=== PATIENT | male | born 1940 | race Caucasian/White ===

== ENCOUNTER 2017-08-04 16:41 | Emergency (ER) | payer MEDICARE ==
--- NOTE | 2017-08-04 17:30 | ERPHSYRPT ---
- History of Present Illness Time Seen by Provider: 08/04/17 17:25 Source: patient Exam Limitations: no limitations Physician History: The patient is a 77-year-old male with a friend of the family complains that he has intermittent pain with urination for 4 months. It is not hurting any more today than it has in the past. He is a very poor historian. He has no local doctor. He takes no prescription medicines. At times he feels like he has urinary urgency. He denies fever or chills. Timing/Duration: other (4 months) Quality: burning Onset Location: urethral Pain Radiation: none Severity of Pain-Max: mild Severity of Pain-Current: none Modifying Factors: Improves With: nothing Associated Symptoms: dysuria Prior abdominal problems: none Allergies/Adverse Reactions: aspirin Allergy (Verified 08/04/17 17:04) - Review of Systems Constitutional: No Fever, No Chills Eyes: No Symptoms Ears, Nose, & Throat: No Symptoms Respiratory: No Cough, No Dyspnea Cardiac: No Chest Pain, No Edema, No Syncope Abdominal/Gastrointestinal: No Abdominal Pain, No Nausea, No Vomiting, No Diarrhea Genitourinary Symptoms: Dysuria, Urgency Musculoskeletal: No Back Pain, No Neck Pain Skin: No Rash Neurological: No Dizziness, No Focal Weakness, No Sensory Changes Psychological: No Symptoms Endocrine: No Symptoms Hematologic/Lymphatic: No Symptoms Immunological/Allergic: No Symptoms All Other Systems: Reviewed and Negative - Nursing Vital Signs Nursing Vital Signs: Initial Vital Signs Temperature 97.7 F 08/04/17 17:06 Pulse Rate 72 08/04/17 17:06 Respiratory Rate 16 08/04/17 17:06 Blood Pressure 152/83 08/04/17 17:06 O2 Sat by Pulse Oximetry 97 08/04/17 17:06 Pain Scale Pain Intensity 5 - Physical Exam General Appearance: no apparent distress, alert Eye Exam: PERRL/EOMI Ears, Nose, Throat Exam: pharynx normal, moist mucous membranes Neck Exam: normal inspection, supple Respiratory Exam: normal breath sounds, lungs clear Cardiovascular Exam: regular rate/rhythm, No edema Gastrointestinal/Abdomen Exam: soft, No tenderness Rectal Exam: not done Male Genital Exam: normal genitalia (uncircumsized) Back Exam: normal inspection, No CVA tenderness Extremity Exam: normal inspection, normal range of motion, No pedal edema Neurologic Exam: alert, 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, cooperative, sensation nml, No motor deficits Skin Exam: normal color, warm, dry, No rash SpO2 Interpretation: normal Ordered Tests: Active Orders 24 hr Category Date Time Status Clean Catch Urine Specimen STAT Care 08/04/17 17:43 Active UA W/RFX UR CULTURE Stat Lab 08/04/17 17:49 Completed Lab/Rad Data: Laboratory Results 08/04/17 Range/Units 17:49 Ur Collection Type VOID Urine Color YELLOW (YELLOW) Urine Appearance CLEAR (CLEAR) Urine pH 5.0 (5-6) Ur Specific [place] 1.025 (1.005-1.025) Urine Protein NEGATIVE (Negative) Urine Ketones NEGATIVE (NEGATIVE) Urine Blood NEGATIVE (0-5) Ubaldo/ul Urine Nitrite NEGATIVE (NEGATIVE) Urine Bilirubin NEGATIVE (NEGATIVE) Urine Urobilinogen NORMAL (0-1) mg/dL Ur Leukocyte Esterase NEGATIVE (NEGATIVE) Urine Culture Reflexed NO (NO) Urine Glucose NEGATIVE (NEGATIVE) mg/dL Specimen Received 08/04/17 1745 - Departure Time of Disposition: 18:01 Departure Disposition: Home Clinical Impression: Dysuria Condition: Stable Critical Care Time: No Additional Instructions: Your complaint is that you have blood in her urine and it hurts to urinate. However, the analysis of your urine is completely normal at this time. If you still have problems, follow-up with your primary care physician. If you do not have one, we will give you a list of physicians who you can visit.
[2017-08-04 17:34] VITALS: BP 152/83; PULSE 72; O2SAT 97
[2017-08-04 17:55] LABS: ADD URINE CULTURE? NO (NO); Bilirubin NEGATIVE (NEGATIVE); Blood NEGATIVE Ery/ul (0-5); COMPLETE URINE MICROSCOPIC? NO; Collection Type VOID; Glucose NEGATIVE (NEGATIVE); Leukocyte Esterase NEGATIVE (NEGATIVE)
== END 2017-08-04 18:47 | disposition home or self-care (01) ==
LOC: ED 16:41
DX: R30.0 Dysuria (principal)
CPT/HCPCS: 81002; 99283

== ENCOUNTER 2019-12-01 18:37 | Emergency (ER) | payer MEDICARE ==
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
[2019-12-01] MEDS ORDERED: Hydromorphone 1 mg/ml Ampule IV ONE (19:04)
[2019-12-01] MEDS ORDERED: Zofran 4 MG/2 ML VIAL IV ONE (19:04)
[2019-12-01] MEDS ORDERED: Sodium Chloride 0.9% 1000 ML 1,000 ML IV STA (19:04)
[2019-12-01] MEDS ORDERED: Zofran 4 MG/2 ML VIAL ONE (19:21)
[2019-12-01] MEDS ORDERED: Sodium Chloride 0.9% 1000 ML 1,000 ML ONE (19:22)
[2019-12-01] MEDS ORDERED: Hydromorphone 1 mg/ml Ampule ONE (19:22)
[2019-12-01 19:26] LABS: Absolute Neutrophil Ct (ANC) 3.03 (1.4-6.9); BASOPHIL % 0.4 % (0.0-0.4); Basophil (Absolute #) 0.02 (0-0.4); Eosinophil % 1.5 % (0.00-5.0); Eosinophil (Absolute #) 0.08 (0-0.5); Hematocrit 36.7 % (42-50); Hemoglobin 11.9 gm/dl (12.5-18.0); Lymphocyte (Absolute #) 1.72 (1.0-4.6); Lymphocytes % 32.6 % (24.0-44.0); Mean Cell Volume 97.9 fl (78-100); Mean Corpuscular Hemoglobin 31.7 pg (26-32); Mean Corpuscular Hgb Concent. 32.4 g/dl (32-36); Mean Platelet Volume 10.1 fl (7.5-11.0); Monocyte (Absolute #) 0.42 (0.0-1.3); Neutrophil % 57.5 % (36.0-66.0); Platelet Count 133 K/mm3 (150-450); Red Blood Count 3.75 M/mm3 (4.1-5.6); Red Cell Distribution Width 15.6 % (11.5-14.0); White Blood Count 5.3 K/mm3 (4.0-10.5)
[2019-12-01 19:31] LABS: Appearance CLEAR (CLEAR); Bilirubin NEGATIVE (NEGATIVE); Blood NEGATIVE Ery/ul (0-5); Glucose NEGATIVE (NEGATIVE); Ketones NEGATIVE (NEGATIVE); Leukocyte Esterase NEGATIVE (NEGATIVE); Nitrite NEGATIVE (NEGATIVE); Protein,Urine Dip NEGATIVE (Negative); Specific Gravity 1.003 (1.005-1.025); Urobilinogen NEGATIVE mg/dL (0-1)
[2019-12-01 19:40] LABS: ALBUMIN 3.9 g/dL (3.5-5.0); ALKALINE PHOSPHATASE 39 U/L (38-126); AMYLASE 80 U/L (30-110); ANION GAP 12.6 MEQ/L (5-15); BLOOD UREA NITROGEN 11 mg/dL (9-20); CHLORIDE 101 mmol/L (98-107); Calcium 9.3 mg/dL (8.4-10.2); Carbon Dioxide 26 mmol/L (22-30); Creatinine 1 0.65 mg/dL (0.66-1.25); Glucose 126 mg/dL (74-106); LIPASE 107 U/L (23-300); Potassium 3.9 mmol/L (3.5-5.1); SGOT/AST 27 U/L (17-59); SGPT/ALT 14 U/L (0-50); SODIUM 136 mmol/L (137-145)
[2019-12-02 00:53] VITALS: BP 149/75; PULSE 78; O2SAT 98
--- NOTE | 2019-12-02 08:19 | XRAY ---
Indication: Left upper quadrant pain. Multiple contiguous axial images obtained through the abdomen and pelvis without contrast as ordered. Comparison: None Lung bases demonstrates mild bilateral dependent atelectasis and small right lower lobe calcified granuloma. No infiltrate or effusion. Heart is not enlarged. Stomach is distended with food/fluid. Gallbladder partially contracted without gallstones. Noncontrasted stomach and bowel loops appear nonobstructed. Previous reported appendectomy. Mild diffuse scattered colonic fecal debris. No free fluid/air. Urinary bladder is markedly distended either outlet obstruction versus neurogenic bladder. Outlet obstruction more likely given enlarged prostate gland. Nonobstructing right renal punctate calculus. Remaining liver, gallbladder, pancreas, spleen, adrenal glands, kidneys, ureters, and bladder appear unremarkable for noncontrast exam. Moderate scattered aortoiliac calcifications without AAA. Osseous structures demonstrates osteopenia, mild/moderate degenerative changes throughout the thoracolumbar spine, and moderate degenerative changes of both hips. Small fatty left inguinal hernia. Impression: 1. Mild fecal stasis without obstruction. 2. Distended urinary bladder. Rule out outlet obstruction versus neurogenic bladder. 3. Enlarged prostate gland, nonobstructing right renal micro-calculus, fatty left inguinal hernia, and chronic bony findings.
== END 2019-12-02 00:54 | disposition home or self-care (01) ==
LOC: ED 18:37
DX: R89.0 Abnormal level of enzymes in specimens from other organs, systems and tissues (principal); R10.12 Left upper quadrant pain
CPT/HCPCS: 36000; 36415; 74176; 80053; 81001; 82150; 83605; 83690; 84484; 85025; 93005; 96374; 96375; 99284; J1170; J2405

== ENCOUNTER 2022-01-05 19:09 | Emergency (ER) | payer MEDICARE ==
--- NOTE | 2022-01-05 19:45 | ERPHSYRPT ---
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, source unclear, [facility] sent him here due to his complaining) Quality: dullness Head Pain Location: global Severity of Pain-Max: moderate Severity of Pain-Current: moderate Recent Head Trauma: no recent headache/trauma, frequent headaches, chronic h eadaches Associated Symptoms: denies symptoms Previous symptoms: same symptoms as today Allergies/Adverse Reactions: aspirin Allergy (Verified 12/01/19 18:42) Home Medications: Acetaminophen 325 mg [Tylenol 325 mg] 650 mg PO Q4H PRN 01/05/22 [History] Magnesium Hydroxide [Milk of Magnesia] 400 mg PO DAILY 01/05/22 [History] Metoprolol Tartrate 50 mg [Lopressor 50 MG] 50 mg PO DAILY 01/05/22 [History] Nicotine [Nicotine Patch 7Mg] 1 each TD DAILY 01/05/22 [History] Sodium Phosphate,[place]-Dibasic [Fleet Enema] 133 ml RC DAILY PRN 01/05/22 [History] Tramadol HCl 50 mg [Ultram 50 mg] 50 mg PO Q6H PRN 01/05/22 [History] bisacodyL [Bisacodyl] 10 mg RC DAILY PRN 01/05/22 [History] Hx Tetanus, Diphtheria Vaccination/Date Given: No Hx Influenza Vaccination/Date Given: No Hx Pneumococcal Vaccination/Date Given: No Travel Risk - International Travel Have you traveled outside of the country in past 3 weeks: No - Coronavirus Screening Are you exhibiting any of the following symptoms?: No Close contact with a COVID-19 positive Pt in past 14-21 Days: No - Vaccine Status Have you recieved a Covid-19 vaccination: No (unknown) 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 - Vaccination Dates Dates if Unknown: unknown - Review of Systems Constitutional: No Symptoms Eyes: No Symptoms Ears, Nose, & Throat: No Symptoms Respiratory: No Symptoms Cardiac: No Symptoms Abdominal/Gastrointestinal: No Symptoms Genitourinary Symptoms: No Symptoms Musculoskeletal: No Symptoms Skin: No Symptoms Neurological: No Symptoms Psychological: No Symptoms Endocrine: No Symptoms Immunological/Allergic: No Symptoms All Other Systems: Reviewed and Negative - Past Medical History Pertinent Past Medical History: Yes (Questionable histori) Neurological History: No Pertinent History ENT History: No Pertinent History Cardiac History: No Pertinent History Respiratory History: No Pertinent History Endocrine Medical History: No Pertinent History Musculoskeletal History: No Pertinent History GI Medical History: No Pertinent History History: No Pertinent History Psycho-Social History: No Pertinent History Male Reproductive Disorders: No Pertinent History Other Medical History: blood clots in lungs, pt is poor historian, does not know - Past Surgical History Past Surgical History: No (unknown) Neuro Surgical History: No Pertinent History Cardiac: No Pertinent History Respiratory: No Pertinent History Gastrointestinal: No Pertinent History Genitourinary: No Pertinent History Musculoskeletal: No Pertinent History Male Surgical History: No Pertinent History Other Surgical History: no paper work sent from long term. unsure of surgical history - Social History Smoking Status: Unknown if ever smoked Exposure to second hand smoke: No Drug Use: none Patient Lives Alone: No - Nursing Vital Signs Nursing Vital Signs: Initial Vital Signs Temperature 97.2 F 01/05/22 19:09 Pulse Rate 51 L 01/05/22 19:09 Respiratory Rate 20 01/05/22 19:09 Blood Pressure 168/75 01/05/22 19:09 O2 Sat by Pulse Oximetry 98 01/05/22 19:09 Pain Scale Pain Intensity 0 - Physical Exam General Appearance: moderate distress Eye Exam: PERRL/EOMI Ears, Nose, Throat Exam: normal ENT inspection Neck Exam: normal inspection, non-tender, supple, full range of motion, other (some DDD clinically) Respiratory Exam: normal breath sounds Cardiovascular Exam: regular rate/rhythm Gastrointestinal/Abdominal Exam: soft Back Exam: normal inspection Extremity Exam: normal inspection Mental Status Exam: alert, 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, 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 Exam: normal hearing, normal speech, PERRL Motor/Sensory Exam: no motor deficit, no sensory deficit Skin Exam: normal color, warm SpO2 Interpretation: normal SpO2: 98 O2 Delivery: Room Air - Course Nursing assessment & vital signs reviewed: Yes EKG Interpreted by Me: Sinus Rohit, Left [place] Deviation, Non-specific ST Changes, Other (no acute changes suspected) Rhythm Strip: Sinus Bradycardia - CT Exams Head CT Interpretation: Negative, Tele-radiologist Report Ordered Tests: Active Orders 24 hr Category Date Time Status EKG-ER Only STAT Care 01/05/22 19:58 Completed IV Insertion STAT Care 01/05/22 19:25 Completed HEAD WITHOUT CONTRAST [CT] Stat Exams 01/05/22 19:58 Taken CBC W DIFF Stat Lab 01/05/22 20:00 Completed CMP Stat Lab 01/05/22 20:00 Completed TROPONIN Q3H Lab 01/05/22 20:00 Completed TROPONIN Q3H Lab 01/05/22 23:15 Completed UA W/RFX CULTURE Stat Lab 01/05/22 20:39 Completed Medication Summary Discontinued Medications Generic Name Dose Route Start Last Admin Trade Name Koffiq PRN Reason Stop Dose Admin Acetaminophen 650 mg 01/05/22 20:04 01/05/22 20:32 Acetaminophen 325 Mg Tablet PO 01/05/22 20:05 650 mg STAT STA Administration Acetaminophen Confirm 01/05/22 20:32 Acetaminophen 325 Mg Tablet Administered 01/05/22 20:33 Dose 650 mg .ROUTE .STK-MED ONE Hydrocodone Bitart/Acetaminophen 1 tab 01/05/22 21:18 01/05/22 21:30 Hydrocodone /Apap 7.5/325 Mg 1 Each Tablet PO 01/05/22 21:19 1 tab STAT ONE Administration Morphine Sulfate 4 mg 01/05/22 23:11 01/05/22 23:14 Morphine Sulfate 4 Mg/Ml Injection IV 01/05/22 23:12 4 mg STAT ONE Administration Morphine Sulfate Confirm 01/05/22 23:13 Morphine Sulfate 4 Mg/Ml Injection Administered 01/05/22 23:14 Dose 4 mg .ROUTE .STK-MED ONE Ondansetron HCl 4 mg 01/05/22 23:12 01/05/22 23:15 Ondansetron Hcl 4 Mg/2 Ml Vial IV 01/05/22 23:13 4 mg STAT ONE Administration Ondansetron HCl Confirm 01/05/22 23:15 Ondansetron Hcl 4 Mg/2 Ml Vial Administered 01/05/22 23:16 Dose 4 mg .ROUTE .STK-MED ONE Ondansetron HCl 8 mg 01/06/22 00:19 01/06/22 00:21 Zofran 4 Mg/Udtablet Orally Disintegrating PO 01/06/22 00:20 8 mg STAT ONE Administration Ondansetron HCl Confirm 01/06/22 00:21 Zofran 4 Mg/Udtablet Orally Disintegrating Administered 01/06/22 00:22 Dose 8 mg .ROUTE .STK-MED ONE Lab/Rad Data: Laboratory Result Diagrams 01/05/22 20:00 01/05/22 20:00 Laboratory Results 01/05/22 01/05/22 01/05/22 Range/Units 23:15 20:39 20:00 WBC (4.0-10.5) x10^3/uL RBC (4.1-5.6) x10^6/uL Hgb (12.5-18.0) g/dL Hct (42-50) % MCV (78-100) fL MCH (26-32) pg MCHC (32-36) g/dL RDW (11.5-14.0) % Plt Count (150-450) x10^3/uL MPV (7.5-11.0) fL Gran % (36.0-66.0) % Immature Gran % (Auto) (0.00-0.4) % Nucleat RBC Rel Count (0.00-0.1) % Eos # (Auto) (0-0.5) x10^3/uL Immature Gran # (Auto) (0.00-0.03) x10^3u/L Absolute Lymphs (auto) (1.0-4.6) x10^3/uL Absolute Monos (auto) (0.0-1.3) x10^3/uL Absolute Nucleated RBC (0.00-0.01) x10^3u/L Lymphocytes % (24.0-44.0) % Monocytes % (0.0-12.0) % Eosinophils % (0.00-5.0) % Basophils % (0.0-0.4) % Absolute Granulocytes (1.4-6.9) x10^3/uL Basophils # (0-0.4) x10^3/uL Sodium (137-145) mmol/L Potassium (3.5-5.1) mmol/L Chloride (98-107) mmol/L Carbon Dioxide (22-30) mmol/L Anion Gap (5-15) MEQ/L BUN (9-20) mg/dL Creatinine (0.66-1.25) mg/dL Estimated GFR ML/MIN Glucose (74-106) mg/dL Calcium (8.4-10.2) mg/dL Total Bilirubin (0.2-1.3) mg/dL AST (17-59) U/L ALT (0-50) U/L Alkaline Phosphatase (38-126) U/L Troponin I 0.026 0.021 (0.000-0.034) ng/mL Serum Total Protein (6.3-8.2) g/dL Albumin (3.5-5.0) g/dL Urinalys Dipstick Clnc MAIN LAB Urine Color YELLOW (YELLOW) Urine Appearance CLEAR (CLEAR) Urine pH 6.0 (5-6) Ur Specific [place] 1.010 (1.005-1.025) POC Urine Protein Conf NEGATIVE (Negative) Urine Ketones NEGATIVE (NEGATIVE) Urine Nitrite NEGATIVE (NEGATIVE) Urine Bilirubin NEGATIVE (NEGATIVE) Urine Urobilinogen 0.2 (0-1) mg/dL Urine Leukocytes SMALL (NEGATIVE) Urine WBC (Auto) 11-15 (0-5) /HPF Urine RBC (Auto) NONE (0-2) /HPF U Epithel Cells (Auto) NONE (FEW) /HPF Urine Bacteria (Auto) NONE (NEGATIVE) /HPF Urine RBC NEGATIVE (0-5) Ubaldo/ul Urine Mucus (Auto) SLIGHT (NEGATIVE) /HPF Ur Culture Indicated? NO Urine Glucose NEGATIVE (NEGATIVE) mg/dL 01/05/22 01/05/22 Range/Units 20:00 20:00 WBC 6.2 (4.0-10.5) x10^3/uL RBC 3.88 L (4.1-5.6) x10^6/uL Hgb 12.4 L (12.5-18.0) g/dL Hct 37.5 L (42-50) % MCV 96.6 (78-100) fL MCH 32.0 (26-32) pg MCHC 33.1 (32-36) g/dL RDW 14.2 H (11.5-14.0) % Plt Count 156 (150-450) x10^3/uL MPV 10.7 (7.5-11.0) fL Gran % 53.1 (36.0-66.0) % Immature Gran % (Auto) 0.2 (0.00-0.4) % Nucleat RBC Rel Count 0.0 (0.00-0.1) % Eos # (Auto) 0.12 (0-0.5) x10^3/uL Immature Gran # (Auto) 0.01 (0.00-0.03) x10^3u/L Absolute Lymphs (auto) 2.10 (1.0-4.6) x10^3/uL Absolute Monos (auto) 0.65 (0.0-1.3) x10^3/uL Absolute Nucleated RBC 0.00 (0.00-0.01) x10^3u/L Lymphocytes % 34.0 (24.0-44.0) % Monocytes % 10.5 (0.0-12.0) % Eosinophils % 1.9 (0.00-5.0) % Basophils % 0.3 (0.0-0.4) % Absolute Granulocytes 3.27 (1.4-6.9) x10^3/uL Basophils # 0.02 (0-0.4) x10^3/uL Sodium 138 (137-145) mmol/L Potassium 4.2 (3.5-5.1) mmol/L Chloride 104 (98-107) mmol/L Carbon Dioxide 26 (22-30) mmol/L Anion Gap 12.0 (5-15) MEQ/L BUN 16 (9-20) mg/dL Creatinine 0.80 (0.66-1.25) mg/dL Estimated GFR > 60.0 ML/MIN Glucose 89 (74-106) mg/dL Calcium 9.7 (8.4-10.2) mg/dL Total Bilirubin 0.40 (0.2-1.3) mg/dL AST 30 (17-59) U/L ALT 36 (0-50) U/L Alkaline Phosphatase 43 (38-126) U/L Troponin I (0.000-0.034) ng/mL Serum Total Protein 7.0 (6.3-8.2) g/dL Albumin 3.9 (3.5-5.0) g/dL Urinalys Dipstick Clnc Urine Color (YELLOW) Urine Appearance (CLEAR) Urine pH (5-6) Ur Specific [place] (1.005-1.025) POC Urine Protein Conf (Negative) Urine Ketones (NEGATIVE) Urine Nitrite (NEGATIVE) Urine Bilirubin (NEGATIVE) Urine Urobilinogen (0-1) mg/dL Urine Leukocytes (NEGATIVE) Urine WBC (Auto) (0-5) /HPF Urine RBC (Auto) (0-2) /HPF U Epithel Cells (Auto) (FEW) /HPF Urine Bacteria (Auto) (NEGATIVE) /HPF Urine RBC (0-5) Ubaldo/ul Urine Mucus (Auto) (NEGATIVE) /HPF Ur Culture Indicated? Urine Glucose (NEGATIVE) mg/dL - Progress Progress: improved Air Movement: good Progress Note: 01/06/22 06:19 tried various med for MOODY, finally gave MS 4 mg which worked, caused some nausea even with zofran, F/U at [facility] Counseled pt/family regarding: lab results, diagnosis, need for follow-up, rad results - Departure Departure Disposition: Extended Care Facility Clinical Impression: Headache Qualifiers: Headache type: unspecified Headache chronicity pattern: episodic headache Intractability: not intractable Qualified Code(s): R51.9 - Headache, unspecified Condition: Stable Critical Care Time: No Referrals: AJ JONES NP [NON-STAFF PHY W/O PRIVILEGES] - Follow up/PCP as directed Additional Instructions: Follow up with the provider at the long term.
[2022-01-05] MEDS ORDERED: TYLENOL 325 MG PO STA (20:04)
[2022-01-05 20:13] LABS: Absolute Neutrophil Ct (ANC) 3.27 x10^3/uL (1.4-6.9); Basophil (Absolute #) 0.02 x10^3/uL (0-0.4); Eosinophil % 1.9 % (0.00-5.0); Eosinophil (Absolute #) 0.12 x10^3/uL (0-0.5); Hematocrit 37.5 % (42-50); Hemoglobin 12.4 g/dL (12.5-18.0); Mean Cell Volume 96.6 fL (78-100); Mean Corpuscular Hgb Concent. 33.1 g/dL (32-36); Mean Platelet Volume 10.7 fL (7.5-11.0); Monocyte (Absolute #) 0.65 x10^3/uL (0.0-1.3); Monocytes % 10.5 % (0.0-12.0); Neutrophil % 53.1 % (36.0-66.0); Platelet Count 156 x10^3/uL (150-450); Red Blood Count 3.88 x10^6/uL (4.1-5.6); Red Cell Distribution Width 14.2 % (11.5-14.0); White Blood Count 6.2 x10^3/uL (4.0-10.5)
[2022-01-05 20:21] LABS: ALBUMIN 3.9 g/dL (3.5-5.0); ALKALINE PHOSPHATASE 43 U/L (38-126); BLOOD UREA NITROGEN 16 mg/dL (9-20); CHLORIDE 104 mmol/L (98-107); Calcium 9.7 mg/dL (8.4-10.2); Carbon Dioxide 26 mmol/L (22-30); EST GLOMERULAR FILTRATION RATE > 60.0 ML/MIN; Glucose 89 mg/dL (74-106); Potassium 4.2 mmol/L (3.5-5.1); SGOT/AST 30 U/L (17-59); SGPT/ALT 36 U/L (0-50); SODIUM 138 mmol/L (137-145)
[2022-01-05] MEDS ORDERED: TYLENOL 325 MG ONE (20:32)
[2022-01-05] MEDS ORDERED: NORCO 7.5/325 MG TAB PO ONE (21:18)
[2022-01-05 21:21] LABS: Mucus SLIGHT /HPF (NEGATIVE)
[2022-01-05 21:22] LABS: Appearance CLEAR (CLEAR); Bilirubin NEGATIVE (NEGATIVE); Glucose NEGATIVE (NEGATIVE); Ketones NEGATIVE (NEGATIVE)
[2022-01-05 21:23] LABS: Dipstick done @ ? MAIN LAB; Nitrite NEGATIVE (NEGATIVE); Protein,Urine Dip NEGATIVE (Negative); RBC NEGATIVE Ery/ul (0-5); Urobilinogen 0.2 mg/dL (0-1)
[2022-01-05 21:24] LABS: Urine Cultured Indicated? NO
[2022-01-05] MEDS ORDERED: MORPHINE SULFATE 4 MG INJ IV ONE (23:11)
[2022-01-05] MEDS ORDERED: Zofran 4 MG/2 ML VIAL IV ONE (23:12)
[2022-01-05] MEDS ORDERED: MORPHINE SULFATE 4 MG INJ ONE (23:13)
[2022-01-05] MEDS ORDERED: Zofran 4 MG/2 ML VIAL ONE (23:15)
[2022-01-06 00:07] VITALS: BP 143/71
[2022-01-06] MEDS ORDERED: ZOFRAN ODT 4 MG PO ONE (00:19)
[2022-01-06] MEDS ORDERED: ZOFRAN ODT 4 MG ONE (00:21)
[2022-01-06 00:29] VITALS: PULSE 51
[2022-01-06 06:21] VITALS: O2SAT 98
--- NOTE | 2022-01-06 07:27 | XRAY ---
Indication: Headache. No known injury. Multiple contiguous axial images obtained through the head without contrast. Comparison: None Age-appropriate global atrophy, moderate/advanced periventricular degenerative micro-ischemia bilaterally, and tiny remote lacunar infarct left mid periventricular white matter. No acute intracranial hemorrhage, abnormal extra-axial fluid collection, or mass effect. Fourth ventricle is midline without hydrocephalus. Bony calvarium intact. Visualized paranasal sinuses and mastoid air cells are clear. Impression: Nonacute senile brain with tiny remote lacunar infarct as detailed.
== END 2022-01-06 00:29 | disposition home or self-care (01) ==
LOC: ED 19:09
DX: R51.9 Headache, unspecified (principal); Z79.891 Long term (current) use of opiate analgesic; Z79.899 Other long term (current) drug therapy
CPT/HCPCS: 36000; 36415; 70450; 80053; 81015; 84484; 85025; 93005; 96374; 96375; 99284; J2270; J2405; Q0162; A9270-GY

== ENCOUNTER 2022-01-07 11:16 | Emergency (ER) | payer MEDICARE ==
[2022-01-07] MEDS ORDERED: TYLENOL 325 MG PO ONE (11:24)
[2022-01-07] MEDS ORDERED: Zofran 4 MG/2 ML VIAL IV ONE (11:24)
[2022-01-07] MEDS ORDERED: MORPHINE SULFATE 2 MG INJ IV ONE (11:24)
[2022-01-07] MEDS ORDERED: Magnesium 1 Gm / 100 Ml D5W*** 100 ML IV ONE ×2 (11:25→11:38)
[2022-01-07] MEDS ORDERED: Zofran 4 MG/2 ML VIAL ONE (11:37)
[2022-01-07] MEDS ORDERED: TYLENOL 325 MG ONE (11:38)
[2022-01-07] MEDS ORDERED: MORPHINE SULFATE 2 MG INJ ONE (11:38)
[2022-01-07 11:48] LABS: Absolute Neutrophil Ct (ANC) 3.29 x10^3/uL (1.4-6.9); Basophil (Absolute #) 0.03 x10^3/uL (0-0.4); Eosinophil % 2.2 % (0.00-5.0); Eosinophil (Absolute #) 0.13 x10^3/uL (0-0.5); Hematocrit 39.1 % (42-50); Hemoglobin 12.7 g/dL (12.5-18.0); Lymphocyte (Absolute #) 1.93 x10^3/uL (1.0-4.6); Lymphocytes % 32.1 % (24.0-44.0); Mean Cell Volume 96.8 fL (78-100); Mean Corpuscular Hemoglobin 31.4 pg (26-32); Mean Corpuscular Hgb Concent. 32.5 g/dL (32-36); Mean Platelet Volume 10.4 fL (7.5-11.0); Monocyte (Absolute #) 0.63 x10^3/uL (0.0-1.3); Monocytes % 10.5 % (0.0-12.0); Neutrophil % 54.5 % (36.0-66.0); Platelet Count 145 x10^3/uL (150-450); Red Blood Count 4.04 x10^6/uL (4.1-5.6); Red Cell Distribution Width 14.1 % (11.5-14.0)
[2022-01-07 13:18] VITALS: BP 172/92
[2022-01-07 13:49] LABS: ALKALINE PHOSPHATASE 40 U/L (38-126); ANION GAP 9.7 MEQ/L (5-15); BLOOD UREA NITROGEN 17 mg/dL (9-20); CHLORIDE 103 mmol/L (98-107); Calcium 9.9 mg/dL (8.4-10.2); Carbon Dioxide 31 mmol/L (22-30); Creatinine 1 0.87 mg/dL (0.66-1.25); EST GLOMERULAR FILTRATION RATE > 60.0 ML/MIN; Glucose 104 mg/dL (74-106); Potassium 4.5 mmol/L (3.5-5.1); SGOT/AST 29 U/L (17-59); SGPT/ALT 27 U/L (0-50); SODIUM 139 mmol/L (137-145); Total Protein 6.9 g/dL (6.3-8.2)
--- NOTE | 2022-01-07 15:12 | ERPHSYRPT ---
- History of Present Illness Time Seen by Provider: 01/07/22 11:23 Source: patient Exam Limitations: no limitations Patient Subjective Stated Complaint: PT TO ER BY EMS FOR COMPLAINTS OF HEADACHE PT STATES IT STARTED LAST NIGHT AND "ITS THE WORSE HEADACHE OF MY LIFE". PT ALSO STATES "THE TYLENOL DOESNT DO ANY GOOD" Triage Nursing Assessment: PT TO ER BY EMS. PT ALERT AND ORIENTED. PT WAS JUST SEEN IN ER SATURDAY FOR SAME THING. PT SKIN PWD. PT STATES "FOGGY" FEELING. PAIN IS ON LEFT SIDE OF HEAD. Physician History: 81 years old male with a history of hypertension resident of skilled nursing who was seen in the ER 2 days ago with headache with negative work-up presented back with left-sided headache since this morning. Apparently skilled nursing reported patient is unconscious, on arrival patient reports he just closed his eyes and did not want to talk to nursing staff as they were not giving him anything stronger but Tylenol. Moving all 4 extremities, denies any fall or trauma. Patient report he feels foggy at times whenever he has a bad headache. Denies any neck pain or difficulty movements of neck. No nausea vomiting or visual disturbance. No chest pain palpitations or shortness of breath. No fever or chills reported. Timing/Duration: today, constant, gradual onset, worse Quality: sharpness Head Pain Location: temporal, parietal Severity of Pain-Max: moderate Severity of Pain-Current: moderate Recent Head Trauma: no recent headache/trauma Associated Symptoms: fatigue, No fever/chills, No loss of consciousness, No nausea/vomiting, No nasal congestion, No nasal drainage, No neck pain, No numbness in legs/feet, No seizures, No sinus infection, No sensitive to light, No speech problems, No stiff neck, No trouble walking, No vision changes, No visual disturbance, No weakness Previous symptoms: same symptoms as today Allergies/Adverse Reactions: aspirin Allergy (Verified 01/07/22 11:27) Home Medications: Acetaminophen 325 mg [Tylenol 325 mg] 650 mg PO Q4H PRN 01/05/22 [History] Magnesium Hydroxide [Milk of Magnesia] 400 mg PO DAILY 01/05/22 [History] Metoprolol Tartrate 50 mg [Lopressor 50 MG] 50 mg PO DAILY 01/05/22 [History] Nicotine [Nicotine Patch 7Mg] 1 each TD DAILY 01/05/22 [History] Sodium Phosphate,[place]-Dibasic [Fleet Enema] 133 ml RC DAILY PRN 01/05/22 [History] Tramadol HCl 50 mg [Ultram 50 mg] 50 mg PO Q6H PRN 01/05/22 [History] bisacodyL [Bisacodyl] 10 mg RC DAILY PRN 01/05/22 [History] Hx Tetanus, Diphtheria Vaccination/Date Given: No Hx Influenza Vaccination/Date Given: No Hx Pneumococcal Vaccination/Date Given: No Travel Risk - International Travel Have you traveled outside of the country in past 3 weeks: No - Coronavirus Screening Are you exhibiting any of the following symptoms?: No Close contact with a COVID-19 positive Pt in past 14-21 Days: No - Vaccine Status Have you recieved a Covid-19 vaccination: Yes 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 - Vaccination Dates Dates if Unknown: UNKNOWN - Review of Systems Constitutional: No Symptoms Eyes: No Symptoms Ears, Nose, & Throat: No Symptoms Respiratory: No Symptoms Cardiac: No Symptoms Abdominal/Gastrointestinal: No Symptoms Musculoskeletal: No Symptoms Skin: No Symptoms Neurological: Headache Psychological: No Symptoms Endocrine: No Symptoms Hematologic/Lymphatic: No Symptoms Immunological/Allergic: No Symptoms - Past Medical History Pertinent Past Medical History: Yes (Questionable histori) Neurological History: No Pertinent History ENT History: No Pertinent History Cardiac History: No Pertinent History Respiratory History: No Pertinent History Endocrine Medical History: No Pertinent History Musculoskeletal History: No Pertinent History GI Medical History: No Pertinent History History: No Pertinent History Psycho-Social History: No Pertinent History Male Reproductive Disorders: No Pertinent History Other Medical History: blood clots in lungs, pt is poor historian, does not know - Past Surgical History Past Surgical History: No (unknown) Neuro Surgical History: No Pertinent History Cardiac: No Pertinent History Respiratory: No Pertinent History Gastrointestinal: No Pertinent History Genitourinary: No Pertinent History Musculoskeletal: No Pertinent History Male Surgical History: No Pertinent History Other Surgical History: no paper work sent from skilled nursing. unsure of surgical history - Social History Smoking Status: Unknown if ever smoked Exposure to second hand smoke: No Drug Use: none Patient Lives Alone: No - Nursing Vital Signs Nursing Vital Signs: Initial Vital Signs Temperature 97.9 F 01/07/22 11:26 Pulse Rate 49 L 01/07/22 11:26 Respiratory Rate 19 01/07/22 11:26 Blood Pressure 169/101 01/07/22 11:26 O2 Sat by Pulse Oximetry 97 01/07/22 11:26 Pain Scale Pain Intensity 8 - Physical Exam General Appearance: no apparent distress, alert Eye Exam: PERRL/EOMI, eyes nml inspection Ears, Nose, Throat Exam: normal ENT inspection, TMs normal, pharynx normal, mois t mucous membranes Neck Exam: normal inspection, non-tender, supple, full range of motion Respiratory Exam: normal breath sounds, lungs clear Cardiovascular Exam: normal heart sounds, bradycardia Gastrointestinal/Abdominal Exam: soft, normal bowel sounds, No tenderness Back Exam: normal inspection, normal range of motion Extremity Exam: normal inspection, normal range of motion, pelvis stable Mental Status Exam: alert, 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, 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 Exam: normal hearing, normal speech, PERRL, No abnormal eye position Coordination/Gait Exam: normal finger to nose, normal cerebellar function Motor/Sensory Exam: no motor deficit, no sensory deficit, no pronator drift, negative Babinski's sign Skin Exam: normal color SpO2 Interpretation: normal SpO2: 94 O2 Delivery: Room Air - Course EKG Interpreted by Me: RATE (51), Sinus Rohit, Right [place] Deviation, NORMAL INTERVALS, Q-wave (Anteroseptal) Ordered Tests: Active Orders 24 hr Category Date Time Status Planer Stone STAT Care 01/07/22 11:24 Completed IV Insertion STAT Care 01/07/22 11:24 Completed HEAD WITHOUT CONTRAST [CT] Stat Exams 01/07/22 12:32 Completed CBC W DIFF Stat Lab 01/07/22 11:30 Completed CMP Stat Lab 01/07/22 13:34 Completed UA W/RFX CULTURE Stat Lab 01/07/22 14:19 Completed Medication Summary Discontinued Medications Generic Name Dose Route Start Last Admin Trade Name Misa PRN Reason Stop Dose Admin Acetaminophen 975 mg 01/07/22 11:24 01/07/22 11:40 Acetaminophen 325 Mg Tablet PO 01/07/22 11:25 975 mg STAT ONE Administration Acetaminophen Confirm 01/07/22 11:38 Acetaminophen 325 Mg Tablet Administered 01/07/22 11:39 Dose 975 mg .ROUTE .STK-MED ONE Diphenhydramine HCl 25 mg 01/07/22 15:18 01/07/22 15:32 Diphenhydramine Hcl 50 Mg/Ml Vial IV 01/07/22 15:19 25 mg STAT ONE Administration Diphenhydramine HCl Confirm 01/07/22 15:29 Diphenhydramine Hcl 50 Mg/Ml Vial Administered 01/07/22 15:30 Dose 50 mg .ROUTE .STK-MED ONE Magnesium Sulfate/Dextrose 100 mls @ 200 mls/hr 01/07/22 11:25 01/07/22 11:50 Magnesium 1 Gm / 100 Ml D5w IV 01/07/22 11:54 200 mls/hr STAT ONE Administration Magnesium Sulfate/Dextrose Confirm 01/07/22 11:38 Magnesium 1 Gm / 100 Ml D5w Administered 01/07/22 11:39 Dose 100 mls @ ud IV .STK-MED ONE Metoclopramide HCl 10 mg 01/07/22 15:18 01/07/22 15:35 Metoclopramide Hcl 10 Mg/2 Ml Vial IV 01/07/22 15:19 10 mg STAT ONE Administration Metoclopramide HCl Confirm 01/07/22 15:30 Metoclopramide Hcl 10 Mg/2 Ml Vial Administered 01/07/22 15:31 Dose 10 mg .ROUTE .STK-MED ONE Morphine Sulfate 2 mg 01/07/22 11:24 01/07/22 11:46 Morphine Sulfate 2 Mg/Ml Inj IV 01/07/22 11:25 2 mg STAT ONE Administration Morphine Sulfate Confirm 01/07/22 11:38 Morphine Sulfate 2 Mg/Ml Inj Administered 01/07/22 11:39 Dose 2 mg .ROUTE .STK-MED ONE Ondansetron HCl 4 mg 01/07/22 11:24 01/07/22 11:45 Ondansetron Hcl 4 Mg/2 Ml Vial IV 01/07/22 11:25 4 mg STAT ONE Administration Ondansetron HCl Confirm 01/07/22 11:37 Ondansetron Hcl 4 Mg/2 Ml Vial Administered 01/07/22 11:38 Dose 4 mg .ROUTE .STK-MED ONE Lab/Rad Data: Laboratory Result Diagrams 01/07/22 11:30 01/07/22 13:34 Laboratory Results 01/07/22 01/07/22 01/07/22 Range/Units 14:19 13:34 11:30 WBC 6.0 (4.0-10.5) x10^3/uL RBC 4.04 L (4.1-5.6) x10^6/uL Hgb 12.7 (12.5-18.0) g/dL Hct 39.1 L (42-50) % MCV 96.8 (78-100) fL MCH 31.4 (26-32) pg MCHC 32.5 (32-36) g/dL RDW 14.1 H (11.5-14.0) % Plt Count 145 L (150-450) x10^3/uL MPV 10.4 (7.5-11.0) fL Gran % 54.5 (36.0-66.0) % Immature Gran % (Auto) 0.2 (0.00-0.4) % Nucleat RBC Rel Count 0.0 (0.00-0.1) % Eos # (Auto) 0.13 (0-0.5) x10^3/uL Immature Gran # (Auto) 0.01 (0.00-0.03) x10^3u/L Absolute Lymphs (auto) 1.93 (1.0-4.6) x10^3/uL Absolute Monos (auto) 0.63 (0.0-1.3) x10^3/uL Absolute Nucleated RBC 0.00 (0.00-0.01) x10^3u/L Lymphocytes % 32.1 (24.0-44.0) % Monocytes % 10.5 (0.0-12.0) % Eosinophils % 2.2 (0.00-5.0) % Basophils % 0.5 (0.0-0.4) % Absolute Granulocytes 3.29 (1.4-6.9) x10^3/uL Basophils # 0.03 (0-0.4) x10^3/uL Sodium 139 (137-145) mmol/L Potassium 4.5 (3.5-5.1) mmol/L Chloride 103 (98-107) mmol/L Carbon Dioxide 31 H (22-30) mmol/L Anion Gap 9.7 (5-15) MEQ/L BUN 17 (9-20) mg/dL Creatinine 0.87 (0.66-1.25) mg/dL Estimated GFR > 60.0 ML/MIN Glucose 104 (74-106) mg/dL Calcium 9.9 (8.4-10.2) mg/dL Total Bilirubin 0.40 (0.2-1.3) mg/dL AST 29 (17-59) U/L ALT 27 (0-50) U/L Alkaline Phosphatase 40 (38-126) U/L Serum Total Protein 6.9 (6.3-8.2) g/dL Albumin 4.0 (3.5-5.0) g/dL Urinalys Dipstick Clnc MAIN LAB Urine Color YELLOW (YELLOW) Urine Appearance CLEAR (CLEAR) Urine pH 5.5 (5-6) Ur Specific [place] 1.020 (1.005-1.025) POC Urine Protein Conf NEGATIVE (Negative) Urine Ketones NEGATIVE (NEGATIVE) Urine Nitrite NEGATIVE (NEGATIVE) Urine Bilirubin NEGATIVE (NEGATIVE) Urine Urobilinogen 0.2 (0-1) mg/dL Urine Leukocytes NEGATIVE (NEGATIVE) Urine WBC (Auto) NONE (0-5) /HPF Urine RBC (Auto) NONE (0-2) /HPF U Epithel Cells (Auto) NONE (FEW) /HPF Urine Bacteria (Auto) NONE (NEGATIVE) /HPF Urine RBC NEGATIVE (0-5) Ubaldo/ul Urine Mucus (Auto) SLIGHT (NEGATIVE) /HPF Ur Culture Indicated? NO Urine Glucose NEGATIVE (NEGATIVE) mg/dL - Progress Progress: improved Air Movement: good Progress Note: 01/07/22 15:11 Patient has essentially nonfocal neuro exam. Repeated CT head which is negative as well. Baseline work-up unremarkable. Given symptomatic treatment and feeling better on reevaluation. Is able to get up and walk in the ER without any limitation. Recommended outpatient follow-up with primary care and neurology and Tylenol to take as needed. Discussed signs symptoms of worsening needing return to ER which he seems understanding. Counseled pt/family regarding: lab results, diagnosis, need for follow-up, rad results - Departure Departure Disposition: Home Clinical Impression: Migraine headache Condition: Stable Critical Care Time: No Referrals: ENVIVE,ENVIVE [Primary Care Provider] - Follow up/PCP as directed (1-2 days for reevaluation) Instructions: Headache, Adult (DC) Additional Instructions: Take Tylenol as needed for headache. Follow-up with primary care and neurology for reevaluation. Return to ER for intractable headache, numbness tingling or weakness etc.
[2022-01-07 15:14] LABS: Appearance CLEAR (CLEAR); Bilirubin NEGATIVE (NEGATIVE); Dipstick done @ ? MAIN LAB; Glucose NEGATIVE (NEGATIVE); Ketones NEGATIVE (NEGATIVE); Nitrite NEGATIVE (NEGATIVE); Ph 5.5 (5-6); Protein,Urine Dip NEGATIVE (Negative); RBC NEGATIVE Ery/ul (0-5); Urobilinogen 0.2 mg/dL (0-1)
--- NOTE | 2022-01-07 15:15 | XRAY ---
Indication: Left-sided headaches 5 years. Multiple contiguous axial images obtained through the head without contrast. Comparison: January 05, 2022. Stable age-appropriate global atrophy, moderate/advanced periventricular degenerative micro-ischemia bilaterally, and tiny remote lacunar infarct left periventricular white matter. No acute intracranial hemorrhage, abnormal extra-axial fluid collection, or mass effect. Fourth ventricle is midline without hydrocephalus. Bony calvarium intact. Paranasal sinuses and mastoid air cells remain clear. Impression: No change compared to CT 2 days ago again demonstrating normal aging brain and tiny remote lacunar infarct. No new/acute intracranial abnormalities. Comment: Preliminary interpretation made by [facility]. No critical discrepancy.
[2022-01-07] MEDS ORDERED: Reglan 10 MG/2 ML IV ONE (15:18)
[2022-01-07] MEDS ORDERED: BENADRYL 50 MG/ML IV ONE (15:18)
[2022-01-07] MEDS ORDERED: BENADRYL 50 MG/ML ONE (15:29)
[2022-01-07] MEDS ORDERED: Reglan 10 MG/2 ML ONE (15:30)
[2022-01-07 16:31] LABS: Mucus SLIGHT /HPF (NEGATIVE)
[2022-01-07 16:34] LABS: Urine Cultured Indicated? NO
[2022-01-07 17:10] VITALS: PULSE 50
[2022-01-07 22:10] VITALS: O2SAT 94
== END 2022-01-07 17:10 | disposition home or self-care (01) ==
LOC: ED 11:16
DX: G43.909 Migraine, unspecified, not intractable, without status migrainosus (principal); R53.83 Other fatigue; Z79.891 Long term (current) use of opiate analgesic; Z79.899 Other long term (current) drug therapy
CPT/HCPCS: 36000; 36415; 70450; 80053; 81015; 85025; 93005; 93041; 96374; 96375; 99285; J1200; J2270; J2405; J3475; A9270-GY

== ENCOUNTER 2022-04-11 16:43 | Emergency (ER) | payer MEDICARE ==
[2022-04-11] MEDS ORDERED: Hydromorphone 1 mg/ml Injection IV ONE (16:52)
[2022-04-11] MEDS ORDERED: Sodium Chloride 0.9% 1000 ML 1,000 ML IV SCH (17:00)
[2022-04-11] MEDS ORDERED: Sodium Chloride 0.9% 1000 ML 1,000 ML ONE (17:03)
[2022-04-11] MEDS ORDERED: Hydromorphone 1 mg/ml Injection ONE (17:03)
--- NOTE | 2022-04-11 17:20 | XRAY ---
Exam: CT of the head without IV contrast from 04/11/2022. CTDI: 53.92 mGy Comparison: CT of the head without IV contrast from 01/07/2022. Indication: 82-year-old male fell; takes blood thinners; complains of headache. Technique: Non-IV contrast axial images were obtained through the brain. Reconstructed coronal and sagittal images were created and reviewed. Findings: The ventricles are within normal size for age. No focal mass effect or midline shift is seen. No acute intracranial bleed or abnormal extra-axial fluid collection is seen this patient. Adjacent to lateral margin of the left lateral ventricle on axial images #39 and #40, I see a couple tiny lacunar infarcts which I believe are unchanged from 01/07/2022. A new low attenuation infarction is not seen. I do note moderate bilateral periventricular and subcortical white matter changes which I believe are due to chronic small vessel ischemic disease. There is moderate prominence of the cortical sulci and sylvian fissures consistent with some generalized atrophy. Vascular calcification within the distal left vertebral artery is seen. I see some vascular calcification within the carotid siphons. The calvarium of the skull appears intact without fracture. The paranasal sinuses reveal minimal chronic mucosal thickening within the inferior margin of the right maxillary sinus which in retrospect is unchanged from 01/07/2022. No air-fluid levels are seen. The mastoid air cells appear clear without effusion. The middle ear cavities appear unremarkable. There are couple small senile calcific scleral plaques at the anterior margin of the globe of both eyes. I believe this is an incidental finding in this 82-year-old male. I don't believe this represents a significant change. Impression: 1. I see no evidence of acute intracranial bleed or other acute intracranial abnormality. 2. Moderate bilateral periventricular and subcortical chronic small vessel ischemic white matter disease appears similar to 01/07/2022. I also note a couple tiny lacunar infarcts adjacent to the lateral margin of the left lateral ventricle representing no change from 01/07/2022. A new infarct is not seen. 3. Mild generalized global atrophy. 4. Minimal chronic sinus disease at the inferior right maxillary sinus representing no significant change from 01/07/2022. No paranasal sinus air-fluid levels are seen.
[2022-04-11 17:37] LABS: Absolute Neutrophil Ct (ANC) 3.21 x10^3/uL (1.4-6.9); Basophil (Absolute #) 0.02 x10^3/uL (0-0.4); Eosinophil % 2.2 % (0.00-5.0); Eosinophil (Absolute #) 0.13 x10^3/uL (0-0.5); Hematocrit 38.3 % (42-50); Hemoglobin 12.6 g/dL (12.5-18.0); Lymphocyte (Absolute #) 1.89 x10^3/uL (1.0-4.6); Lymphocytes % 32.5 % (24.0-44.0); Mean Cell Volume 97.7 fL (78-100); Mean Corpuscular Hemoglobin 32.1 pg (26-32); Mean Corpuscular Hgb Concent. 32.9 g/dL (32-36); Mean Platelet Volume 9.6 fL (7.5-11.0); Monocyte (Absolute #) 0.55 x10^3/uL (0.0-1.3); Monocytes % 9.5 % (0.0-12.0); Neutrophil % 55.3 % (36.0-66.0); Platelet Count 148 x10^3/uL (150-450); Red Blood Count 3.92 x10^6/uL (4.1-5.6); Red Cell Distribution Width 14.7 % (11.5-14.0); White Blood Count 5.8 x10^3/uL (4.0-10.5)
--- NOTE | 2022-04-11 17:37 | ERPHSYRPT ---
- History of Present Illness Time Seen by Provider: 04/11/22 16:55 Source: patient, EMS Exam Limitations: no limitations Patient Subjective Stated Complaint: pt here for headache,pt has hx fo migraines but states this is the worst hes had, he states he fell while trying to get out of [place], denies any pain from fall, Triage Nursing Assessment: pt alert,oreinted to person. skin w/d/p, abd soft, resp easy, chest clear, moves all ext well Physician History: Doug is a 82-year-old male who comes from a [facility]. He has a history of migraines and is normally treated there with his prescribed medications today however apparently was only given 1 dose and sometimes it takes more than 1 he states his headache is one of his more severe headaches. He was found on the ground after he fell trying to get out of his wheelchair. He denies any pain other than his headache. Timing/Duration: today Quality: throbbing Head Pain Location: global Severity of Pain-Max: severe Severity of Pain-Current: moderate Recent Head Trauma: frequent headaches Modifying Factors: Improves With: exposure to light Associated Symptoms: nausea/vomiting, sensitive to light Allergies/Adverse Reactions: aspirin Allergy (Verified 01/07/22 11:27) Home Medications: Acetaminophen 325 mg [Tylenol 325 mg] 650 mg PO Q4H PRN 01/05/22 [History] Magnesium Hydroxide [Milk of Magnesia] 400 mg PO DAILY 01/05/22 [History] Metoprolol Tartrate 50 mg [Lopressor 50 MG] 50 mg PO DAILY 01/05/22 [History] Nicotine [Nicotine Patch 7Mg] 1 each TD DAILY 01/05/22 [History] Sodium Phosphate,Young-Dibasic [Fleet Enema] 133 ml RC DAILY PRN 01/05/22 [History] Tramadol HCl 50 mg [Ultram 50 mg] 50 mg PO Q6H PRN 01/05/22 [History] bisacodyL [Bisacodyl] 10 mg RC DAILY PRN 01/05/22 [History] Hx Tetanus, Diphtheria Vaccination/Date Given: No Hx Influenza Vaccination/Date Given: No Hx Pneumococcal Vaccination/Date Given: No Immunizations Up to Date: Yes Travel Risk - International Travel Have you traveled outside of the country in past 3 weeks: No - Coronavirus Screening Are you exhibiting any of the following symptoms?: No - Vaccine Status Have you recieved a Covid-19 vaccination: Yes 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 Financial 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: 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 - Vaccination Dates Dates if Unknown: UNKNOWN - Review of Systems Constitutional: No Fever, No Chills Eyes: No Symptoms Ears, Nose, & Throat: No Symptoms Respiratory: No Cough, No Dyspnea Cardiac: No Chest Pain, No Edema, No Syncope Abdominal/Gastrointestinal: No Abdominal Pain, No Nausea, No Vomiting, No Diarrhea Genitourinary Symptoms: No Dysuria Musculoskeletal: No Back Pain, No Neck Pain Skin: No Rash Neurological: Headache, No Dizziness, No Focal Weakness, No Sensory Changes Psychological: No Symptoms Endocrine: No Symptoms All Other Systems: Reviewed and Negative - Past Medical History Pertinent Past Medical History: Yes (Questionable histori) Neurological History: No Pertinent History ENT History: No Pertinent History Cardiac History: No Pertinent History Respiratory History: No Pertinent History Endocrine Medical History: No Pertinent History Musculoskeletal History: No Pertinent History GI Medical History: No Pertinent History History: No Pertinent History Psycho-Social History: No Pertinent History Male Reproductive Disorders: No Pertinent History Other Medical History: blood clots in lungs, pt is poor historian, does not know - Past Surgical History Past Surgical History: No (unknown) Neuro Surgical History: No Pertinent History Cardiac: No Pertinent History Respiratory: No Pertinent History Gastrointestinal: No Pertinent History Genitourinary: No Pertinent History Musculoskeletal: No Pertinent History Male Surgical History: No Pertinent History Other Surgical History: no paper work sent from [facility]. unsure of surgical history - Social History Smoking Status: Former smoker Exposure to second hand smoke: No Drug Use: none Patient Lives Alone: No - Nursing Vital Signs Nursing Vital Signs: Initial Vital Signs Temperature 96.4 F 04/11/22 16:50 Pulse Rate 65 04/11/22 16:50 Respiratory Rate 18 04/11/22 16:50 Blood Pressure 160/83 04/11/22 16:50 O2 Sat by Pulse Oximetry 97 04/11/22 16:50 Pain Scale Pain Intensity 7 - Physical Exam General Appearance: no apparent distress Eye Exam: PERRL/EOMI Ears, Nose, Throat Exam: normal ENT inspection, moist mucous membranes Neck Exam: normal inspection, supple, full range of motion, No meningismus Respiratory Exam: normal breath sounds, lungs clear Cardiovascular Exam: regular rate/rhythm, normal heart sounds Gastrointestinal/Abdominal Exam: soft, No tenderness, No distention Back Exam: normal inspection, normal range of motion Mental Status Exam: alert, 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, 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 Exam: normal speech, PERRL, No facial droop Coordination/Gait Exam: normal cerebellar function Motor/Sensory Exam: no motor deficit, no sensory deficit Skin Exam: normal color, warm, dry, No rash SpO2: 96 - Course Nursing assessment & vital signs reviewed: Yes - CT Exams Head CT Interpretation: Negative (No acute changes or findings) Ordered Tests: Active Orders 24 hr Category Date Time Status HEAD WITHOUT CONTRAST [CT] Stat Exams 04/11/22 16:44 Completed CBC W DIFF Stat Lab 04/11/22 17:25 Results CMP Stat Lab 04/11/22 17:25 Completed Erythrocyte Sedimentation Rate Stat Lab 04/11/22 17:25 Results Lactic Acid Urgent Lab 04/11/22 17:30 Completed PROTIME WITH INR Stat Lab 04/11/22 17:25 Completed UA W/RFX CULTURE Stat Lab 04/11/22 Ordered Urine Triage Profile Stat Lab 04/11/22 16:54 Ordered Medication Summary Generic Name Dose Route Start Last Admin Trade Name Freq PRN Reason Stop Dose Admin Sodium Chloride 1,000 mls @ 100 mls/hr 04/11/22 17:00 04/11/22 17:06 Sodium Chloride 0.9% 1000 Ml IV 05/11/22 16:59 100 mls/hr .Q10H BLAIRE Administration Discontinued Medications Generic Name Dose Route Start Last Admin Trade Name Freq PRN Reason Stop Dose Admin Droperidol 1.25 mg 04/11/22 16:52 04/11/22 17:05 Droperidol 5 Mg/2 Ml Vial IV 04/11/22 16:53 1.25 mg STAT ONE Administration Droperidol Confirm 04/11/22 17:02 Droperidol 5 Mg/2 Ml Vial Administered 04/11/22 17:03 Dose 5 mg .ROUTE .STK-MED ONE Hydromorphone HCl 1 mg 04/11/22 16:52 04/11/22 17:05 Hydromorphone 1 Mg/1ml Inj 1 Mg/Ml Syringe IV 04/11/22 16:53 1 mg STAT ONE Administration Hydromorphone HCl Confirm 04/11/22 17:03 Hydromorphone 1 Mg/1ml Inj 1 Mg/Ml Syringe Administered 04/11/22 17:04 Dose 1 mg .ROUTE .STK-MED ONE Lab/Rad Data: Laboratory Result Diagrams 04/11/22 17:25 04/11/22 17:25 Laboratory Results 04/11/22 04/11/22 04/11/22 Range/Units 17:30 17:25 17:25 WBC (4.0-10.5) x10^3/uL RBC (4.1-5.6) x10^6/uL Hgb (12.5-18.0) g/dL Hct (42-50) % MCV (78-100) fL MCH (26-32) pg MCHC (32-36) g/dL RDW (11.5-14.0) % Plt Count (150-450) x10^3/uL MPV (7.5-11.0) fL Gran % (36.0-66.0) % Immature Gran % (Auto) (0.00-0.4) % Nucleat RBC Rel Count (0.00-0.1) % Eos # (Auto) (0-0.5) x10^3/uL Immature Gran # (Auto) (0.00-0.03) x10^3u/L Absolute Lymphs (auto) (1.0-4.6) x10^3/uL Absolute Monos (auto) (0.0-1.3) x10^3/uL Absolute Nucleated RBC (0.00-0.01) x10^3u/L Lymphocytes % (24.0-44.0) % Monocytes % (0.0-12.0) % Eosinophils % (0.00-5.0) % Basophils % (0.0-0.4) % Absolute Granulocytes (1.4-6.9) x10^3/uL Basophils # (0-0.4) x10^3/uL ESR PT 10.7 (9.4-12.5) SECONDS INR 1.01 (0.8-3.0) Sodium 139 (137-145) mmol/L Potassium 4.0 (3.5-5.1) mmol/L Chloride 107 (98-107) mmol/L Carbon Dioxide 26 (22-30) mmol/L Anion Gap 10.1 (5-15) MEQ/L BUN 14 (9-20) mg/dL Creatinine 0.86 (0.66-1.25) mg/dL Estimated GFR > 60.0 ML/MIN Glucose 88 (74-106) mg/dL Lactic Acid 1.5 (0.4-2.0) Calcium 9.1 (8.4-10.2) mg/dL Total Bilirubin 0.20 (0.2-1.3) mg/dL AST 25 (17-59) U/L ALT 17 (0-50) U/L Alkaline Phosphatase 48 (38-126) U/L Serum Total Protein 7.0 (6.3-8.2) g/dL Albumin 4.0 (3.5-5.0) g/dL 04/11/22 Range/Units 17:25 WBC 5.8 (4.0-10.5) x10^3/uL RBC 3.92 L (4.1-5.6) x10^6/uL Hgb 12.6 (12.5-18.0) g/dL Hct 38.3 L (42-50) % MCV 97.7 (78-100) fL MCH 32.1 H (26-32) pg MCHC 32.9 (32-36) g/dL RDW 14.7 H (11.5-14.0) % Plt Count 148 L (150-450) x10^3/uL MPV 9.6 (7.5-11.0) fL Gran % 55.3 (36.0-66.0) % Immature Gran % (Auto) 0.2 (0.00-0.4) % Nucleat RBC Rel Count 0.0 (0.00-0.1) % Eos # (Auto) 0.13 (0-0.5) x10^3/uL Immature Gran # (Auto) 0.01 (0.00-0.03) x10^3u/L Absolute Lymphs (auto) 1.89 (1.0-4.6) x10^3/uL Absolute Monos (auto) 0.55 (0.0-1.3) x10^3/uL Absolute Nucleated RBC 0.00 (0.00-0.01) x10^3u/L Lymphocytes % 32.5 (24.0-44.0) % Monocytes % 9.5 (0.0-12.0) % Eosinophils % 2.2 (0.00-5.0) % Basophils % 0.3 (0.0-0.4) % Absolute Granulocytes 3.21 (1.4-6.9) x10^3/uL Basophils # 0.02 (0-0.4) x10^3/uL ESR Pending PT (9.4-12.5) SECONDS INR (0.8-3.0) Sodium (137-145) mmol/L Potassium (3.5-5.1) mmol/L Chloride (98-107) mmol/L Carbon Dioxide (22-30) mmol/L Anion Gap (5-15) MEQ/L BUN (9-20) mg/dL Creatinine (0.66-1.25) mg/dL Estimated GFR ML/MIN Glucose (74-106) mg/dL Lactic Acid (0.4-2.0) Calcium (8.4-10.2) mg/dL Total Bilirubin (0.2-1.3) mg/dL AST (17-59) U/L ALT (0-50) U/L Alkaline Phosphatase (38-126) U/L Serum Total Protein (6.3-8.2) g/dL Albumin (3.5-5.0) g/dL - Progress Progress: improved Air Movement: good Blood Culture(s) Obtained: No Antibiotics given: No - Departure Departure Disposition: Extended Care Facility Clinical Impression: Migraine headache Condition: Good Critical Care Time: No Referrals: ENVIVE,ENVIVE [Primary Care Provider] - Follow up/PCP as directed Instructions: Migraines (DC)
[2022-04-11 17:47] LABS: ALKALINE PHOSPHATASE 48 U/L (38-126); ANION GAP 10.1 MEQ/L (5-15); BLOOD UREA NITROGEN 14 mg/dL (9-20); CHLORIDE 107 mmol/L (98-107); Calcium 9.1 mg/dL (8.4-10.2); Carbon Dioxide 26 mmol/L (22-30); Creatinine 1 0.86 mg/dL (0.66-1.25); EST GLOMERULAR FILTRATION RATE > 60.0 ML/MIN; Glucose 88 mg/dL (74-106); INR 1.01 (0.8-3.0); PROTIME 10.7 SECONDS (9.4-12.5); SGOT/AST 25 U/L (17-59); SGPT/ALT 17 U/L (0-50); SODIUM 139 mmol/L (137-145)
[2022-04-11 18:31] VITALS: BP 160/71; PULSE 57; O2SAT 98
[2022-04-11 18:49] LABS: Erythrocyte Sedimentation Rate 29 mm/hr (0-15)
== END 2022-04-11 19:13 | disposition home or self-care (01) ==
LOC: ED 16:43
DX: G43.909 Migraine, unspecified, not intractable, without status migrainosus (principal); R11.2 Nausea with vomiting, unspecified; Z79.891 Long term (current) use of opiate analgesic; Z79.899 Other long term (current) drug therapy
CPT/HCPCS: 36415; 70450; 80053; 83605; 85025; 85610; 85652; 96374; 96375; 99284; J1170

== ENCOUNTER 2022-11-10 09:12 | Emergency (ER) | payer MEDICARE ==
[2022-11-10] MEDS ORDERED: Sodium Chloride 0.9% 1000 ML 1,000 ML ONE (09:28)
--- NOTE | 2022-11-10 09:28 | ERPHSYRPT ---
- History of Present Illness Time Seen by Provider: 11/10/22 09:24 Source: patient, EMS, [facility] records Exam Limitations: clinical condition Physician History: Patient is an 82-year-old white male sent from the [facility] with a chief complaint of not acting himself. Patient has dementia but apparently has an acute deterioration in his mental status. He denies any pain he does admit to confusion. He knows he is in a hospital but does not know the president or the year. Timing/Duration: today Severity: moderate Baseline/Normal Cognition: poor alertness Current Cognition: poor alertness Associated Symptoms: confusion Allergies/Adverse Reactions: aspirin Allergy (Verified 11/10/22 09:46) Home Medications: Acetaminophen 325 mg [Tylenol 325 mg] 650 mg PO Q4H PRN 01/05/22 [History] Magnesium Hydroxide [Milk of Magnesia] 30 ml PO DAILY 01/05/22 [History] Tramadol HCl 50 mg [Ultram 50 mg] 50 mg PO Q6H PRN 01/05/22 [History] bisacodyL [Bisacodyl] 10 mg RC DAILY PRN 01/05/22 [History] Bismuth Subsalicylate [Pepto-Bismol] 30 ml PO Q4H PRN 11/10/22 [History] Butalb/Acetaminophen/Caffeine [Esgic 50-325-40 mg Tablet] 1 tab PO TID PRN 11/10/22 [History] Cholestyramine Light 4 gm [QUESTRAN Light 4 GM Packet] 4 gm PO DAILY 11/10/22 [History] Glycerin/Propylene Glycol [Artificial Tears Drops] 2 drops OP QID PRN PRN 11/10/22 [History] Hydrochlorothiazide 25 mg [hydroDIURIL 25 MG] 25 mg PO DAILY 11/10/22 [History] Loperamide HCl 2 mg [Imodium 2 mg] 2 mg PO Q6HPRN PRN 11/10/22 [History] Loratadine 10 mg [Claritin 10 mg] 10 mg PO DAILY 11/10/22 [History] Memantine HCl 5 mg [Namenda 5 MG] 5 mg PO BID 11/10/22 [History] Metoprolol Succinate 50 mg [Toprol Xl 50 MG] 50 mg PO BID 11/10/22 [History] Polyethylene Glycol 3350 [Miralax] 17 gm PO DAILY PRN 11/10/22 [History] Potassium Chloride 20 meq PO TID 11/10/22 [History] Risperidone Microspheres [Risperdal Consta] 25 mg IM Q14D 11/10/22 [History] Saccharomyces Boulardii 250 mg PO DAILY 11/10/22 [History] Sertraline HCl 50 mg [Zoloft 50 mg Tablet] 25 mg PO DAILY 11/10/22 [History] Sodium Phosphate,[place]-Dibasic [Fleet Enema] 133 ml RC DAILY PRN 11/10/22 [Histo ry] Hx Tetanus, Diphtheria Vaccination/Date Given: No Hx Influenza Vaccination/Date Given: No Hx Pneumococcal Vaccination/Date Given: No Travel Risk - Vaccine Status Have you recieved a Covid-19 vaccination: Yes 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 - Vaccination Dates Dates if Unknown: UNKNOWN - Review of Systems All Other Systems: Unable due to dementia - Past Medical History Pertinent Past Medical History: Yes (Questionable histori) Neurological History: No Pertinent History ENT History: No Pertinent History Cardiac History: No Pertinent History Respiratory History: No Pertinent History Endocrine Medical History: No Pertinent History Musculoskeletal History: No Pertinent History GI Medical History: No Pertinent History History: No Pertinent History Psycho-Social History: No Pertinent History Male Reproductive Disorders: No Pertinent History Other Medical History: blood clots in lungs, pt is poor historian, does not know - Past Surgical History Past Surgical History: No (unknown) Neuro Surgical History: No Pertinent History Cardiac: No Pertinent History Respiratory: No Pertinent History Gastrointestinal: No Pertinent History Genitourinary: No Pertinent History Musculoskeletal: No Pertinent History Male Surgical History: No Pertinent History Other Surgical History: no paper work sent from [facility]. unsure of surgical history - Social History Smoking Status: Former smoker Exposure to second hand smoke: No Drug Use: none Patient Lives Alone: No - Nursing Vital Signs Nursing Vital Signs: Initial Vital Signs Temperature 97.2 F 11/10/22 09:19 Pulse Rate 55 L 11/10/22 09:19 Respiratory Rate 16 11/10/22 09:19 Blood Pressure 131/70 11/10/22 09:19 O2 Sat by Pulse Oximetry 95 11/10/22 09:19 Pain Scale Pain Intensity 0 - Parrish Coma Scale Best Eye Response (Parrish): (4) open spontaneously Best Verbal Response (Morgan): (4) confused conversation Best Motor Response (Parrish): (6) obeys commands Parrish Total: 14 - Physical Exam General Appearance: mild distress Eye Exam: bilateral eye: normal inspection, PERRL, EOMI Ears, Nose, Throat Exam: normal ENT inspection, moist mucous membranes Neck Exam: normal inspection, non-tender, supple Respiratory: normal breath sounds, lungs clear, airway intact, No respiratory distress Cardiovascular: regular rate/rhythm, No edema Gastrointestinal: soft, No tenderness, No distention Back Exam: normal inspection Extremity Exam: normal inspection, No pedal edema Mental Status: 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 person, 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 time body repairer Exam: normal hearing, normal speech, PERRL - Course Nursing assessment & vital signs reviewed: Yes - CT Exams Head CT Interpretation: Tele-radiologist Report, Other (Reviewed telemetry radiologist report which was negative) Ordered Tests: Active Orders 24 hr Category Date Time Status EKG-ER Only STAT Care 11/10/22 09:20 Active IV Insertion STAT Care 11/10/22 09:20 Active NPO (ED) STAT Care 11/10/22 09:21 Active CHEST 1 VIEW (PORTABLE) Stat Exams 11/10/22 09:21 Taken HEAD WITHOUT CONTRAST [CT] Stat Exams 11/10/22 09:21 Taken CBC W DIFF Stat Lab 11/10/22 09:45 Completed CMP Stat Lab 11/10/22 09:45 Completed CULTURE,URINE Stat Lab 11/10/22 09:44 Received Lactic Acid Stat Lab 11/10/22 09:20 Completed PROTIME WITH INR Stat Lab 11/10/22 09:45 Completed PTT Stat Lab 11/10/22 09:45 Completed TSH [TSH, 3RD Generation] Stat Lab 11/10/22 09:45 Completed UA W/RFX UR CULTURE Stat Lab 11/10/22 09:44 Completed Medication Summary Generic Name Dose Route Start Last Admin Trade Name Freq PRN Reason Stop Dose Admin Sodium Chloride 1,000 mls @ 100 mls/hr 11/10/22 09:30 11/10/22 09:29 Sodium Chloride 0.9% 1000 Ml IV 12/10/22 09:29 100 mls/hr .Q10H BLAIRE Administration Ceftriaxone Sodium/Dextrose 1 g in 50 mls @ 100 mls/hr 11/10/22 11:13 11/10/22 11:15 Rocephin 1 Gm-D5w 50 Ml Bag IV 11/10/22 11:42 100 ml/hr STAT STA 100 mls/hr Administration Discontinued Medications Generic Name Dose Route Start Last Admin Trade Name Misa PRN Reason Stop Dose Admin Ceftriaxone Sodium/Dextrose Confirm 11/10/22 11:14 Rocephin 1 Gm-D5w 50 Ml Bag Administered 11/10/22 11:15 Dose 1 g in 50 mls @ ud IV .STK-MED ONE Lab/Rad Data: Laboratory Result Diagrams 11/10/22 09:45 11/10/22 09:45 Laboratory Results 11/10/22 11/10/22 11/10/22 Range/Units 09:45 09:45 09:45 WBC (4.0-10.5) x10^3/uL RBC (4.1-5.6) x10^6/uL Hgb (12.5-18.0) g/dL Hct (42-50) % MCV (78-100) fL MCH (26-32) pg MCHC (32-36) g/dL RDW (11.5-14.0) % Plt Count (150-450) x10^3/uL MPV (7.5-11.0) fL Gran % (36.0-66.0) % Immature Gran % (Auto) (0.00-0.4) % Nucleat RBC Rel Count (0.00-0.1) % Eos # (Auto) (0-0.5) x10^3/uL Immature Gran # (Auto) (0.00-0.03) x10^3u/L Absolute Lymphs (auto) (1.0-4.6) x10^3/uL Absolute Monos (auto) (0.0-1.3) x10^3/uL Absolute Nucleated RBC (0.00-0.01) x10^3u/L Lymphocytes % (24.0-44.0) % Monocytes % (0.0-12.0) % Eosinophils % (0.00-5.0) % Basophils % (0.0-0.4) % Absolute Granulocytes (1.4-6.9) x10^3/uL Basophils # (0-0.4) x10^3/uL PT 11.0 (9.4-12.5) SECONDS INR 1.01 (0.8-3.0) APTT 27.8 (25.1-36.5) SECONDS Sodium (137-145) mmol/L Potassium (3.5-5.1) mmol/L Chloride (98-107) mmol/L Carbon Dioxide (22-30) mmol/L Anion Gap (5-15) MEQ/L BUN (9-20) mg/dL Creatinine (0.66-1.25) mg/dL Estimated GFR ML/MIN Glucose (74-106) mg/dL Lactic Acid (0.4-2.0) Calcium (8.4-10.2) mg/dL Total Bilirubin (0.2-1.3) mg/dL AST (17-59) U/L ALT (0-50) U/L Alkaline Phosphatase (38-126) U/L Ammonia < 9 L (9-30) umol/L Serum Total Protein (6.3-8.2) g/dL Albumin (3.5-5.0) g/dL TSH 3rd Generation 2.190 (0.47-4.68) mIU/L Urine Color (Yellow) Urine Appearance (Clear) Urine pH (4.6-8.0) Ur Specific Reading (1.005-1.030) Urine Protein (Negative) Urine Glucose (UA) (Negative) mg/dL Urine Ketones (Negative) Urine Blood (Negative) Urine Nitrite (Negative) Urine Bilirubin (Negative) Urine Urobilinogen (0.2) mg/dL Ur Leukocyte Esterase (Negative) U Hyaline Cast (Auto) (0-2) /LPF Urine Microscopic RBC (0-5) /HPF Urine Microscopic WBC (0-5) /HPF Ur Epithelial Cells (None Seen) /HPF Urine Bacteria (None Seen) /HPF Urine Culture Reflexed (NO) 11/10/22 11/10/22 11/10/22 Range/Units 09:45 09:45 09:44 WBC 4.6 (4.0-10.5) x10^3/uL RBC 3.73 L (4.1-5.6) x10^6/uL Hgb 11.6 L (12.5-18.0) g/dL Hct 36.4 L (42-50) % MCV 97.6 (78-100) fL MCH 31.1 (26-32) pg MCHC 31.9 L (32-36) g/dL RDW 15.2 H (11.5-14.0) % Plt Count 139 L (150-450) x10^3/uL MPV 10.3 (7.5-11.0) fL Gran % 59.2 (36.0-66.0) % Immature Gran % (Auto) 0.2 (0.00-0.4) % Nucleat RBC Rel Count 0.0 (0.00-0.1) % Eos # (Auto) 0.12 (0-0.5) x10^3/uL Immature Gran # (Auto) 0.01 (0.00-0.03) x10^3u/L Absolute Lymphs (auto) 1.26 (1.0-4.6) x10^3/uL Absolute Monos (auto) 0.45 (0.0-1.3) x10^3/uL Absolute Nucleated RBC 0.00 (0.00-0.01) x10^3u/L Lymphocytes % 27.7 (24.0-44.0) % Monocytes % 9.9 (0.0-12.0) % Eosinophils % 2.6 (0.00-5.0) % Basophils % 0.4 (0.0-0.4) % Absolute Granulocytes 2.69 (1.4-6.9) x10^3/uL Basophils # 0.02 (0-0.4) x10^3/uL PT (9.4-12.5) SECONDS INR (0.8-3.0) APTT (25.1-36.5) SECONDS Sodium 140 (137-145) mmol/L Potassium 3.7 (3.5-5.1) mmol/L Chloride 104 (98-107) mmol/L Carbon Dioxide 28 (22-30) mmol/L Anion Gap 12.7 (5-15) MEQ/L BUN 12 (9-20) mg/dL Creatinine 1.05 (0.66-1.25) mg/dL Estimated GFR > 60.0 ML/MIN Glucose 218 H (74-106) mg/dL Lactic Acid (0.4-2.0) Calcium 9.1 (8.4-10.2) mg/dL Total Bilirubin 0.30 (0.2-1.3) mg/dL AST 24 (17-59) U/L ALT 18 (0-50) U/L Alkaline Phosphatase 42 (38-126) U/L Ammonia (9-30) umol/L Serum Total Protein 7.2 (6.3-8.2) g/dL Albumin 3.7 (3.5-5.0) g/dL TSH 3rd Generation (0.47-4.68) mIU/L Urine Color Yellow (Yellow) Urine Appearance Clear (Clear) Urine pH 5.0 (4.6-8.0) Ur Specific Reading 1.015 (1.005-1.030) Urine Protein Negative (Negative) Urine Glucose (UA) Negative (Negative) mg/dL Urine Ketones Negative (Negative) Urine Blood Negative (Negative) Urine Nitrite Negative (Negative) Urine Bilirubin Negative (Negative) Urine Urobilinogen 0.2 (0.2) mg/dL Ur Leukocyte Esterase Moderate A (Negative) U Hyaline Cast (Auto) NONE SEEN (0-2) /LPF Urine Microscopic RBC 0-2 (0-5) /HPF Urine Microscopic WBC 21-50 A (0-5) /HPF Ur Epithelial Cells None Seen (None Seen) /HPF Urine Bacteria None Seen (None Seen) /HPF Urine Culture Reflexed YES (NO) 11/10/22 Range/Units 09:20 WBC (4.0-10.5) x10^3/uL RBC (4.1-5.6) x10^6/uL Hgb (12.5-18.0) g/dL Hct (42-50) % MCV (78-100) fL MCH (26-32) pg MCHC (32-36) g/dL RDW (11.5-14.0) % Plt Count (150-450) x10^3/uL MPV (7.5-11.0) fL Gran % (36.0-66.0) % Immature Gran % (Auto) (0.00-0.4) % Nucleat RBC Rel Count (0.00-0.1) % Eos # (Auto) (0-0.5) x10^3/uL Immature Gran # (Auto) (0.00-0.03) x10^3u/L Absolute Lymphs (auto) (1.0-4.6) x10^3/uL Absolute Monos (auto) (0.0-1.3) x10^3/uL Absolute Nucleated RBC (0.00-0.01) x10^3u/L Lymphocytes % (24.0-44.0) % Monocytes % (0.0-12.0) % Eosinophils % (0.00-5.0) % Basophils % (0.0-0.4) % Absolute Granulocytes (1.4-6.9) x10^3/uL Basophils # (0-0.4) x10^3/uL PT (9.4-12.5) SECONDS INR (0.8-3.0) APTT (25.1-36.5) SECONDS Sodium (137-145) mmol/L Potassium (3.5-5.1) mmol/L Chloride (98-107) mmol/L Carbon Dioxide (22-30) mmol/L Anion Gap (5-15) MEQ/L BUN (9-20) mg/dL Creatinine (0.66-1.25) mg/dL Estimated GFR ML/MIN Glucose (74-106) mg/dL Lactic Acid 1.7 (0.4-2.0) Calcium (8.4-10.2) mg/dL Total Bilirubin (0.2-1.3) mg/dL AST (17-59) U/L ALT (0-50) U/L Alkaline Phosphatase (38-126) U/L Ammonia (9-30) umol/L Serum Total Protein (6.3-8.2) g/dL Albumin (3.5-5.0) g/dL TSH 3rd Generation (0.47-4.68) mIU/L Urine Color (Yellow) Urine Appearance (Clear) Urine pH (4.6-8.0) Ur Specific Reading (1.005-1.030) Urine Protein (Negative) Urine Glucose (UA) (Negative) mg/dL Urine Ketones (Negative) Urine Blood (Negative) Urine Nitrite (Negative) Urine Bilirubin (Negative) Urine Urobilinogen (0.2) mg/dL Ur Leukocyte Esterase (Negative) U Hyaline Cast (Auto) (0-2) /LPF Urine Microscopic RBC (0-5) /HPF Urine Microscopic WBC (0-5) /HPF Ur Epithelial Cells (None Seen) /HPF Urine Bacteria (None Seen) /HPF Urine Culture Reflexed (NO) - Progress Progress: improved Progress Note: 11/10/22 11:29 Work-up for altered mental status was negative other than urinary tract infection. Differential diagnosis includes numerous metabolic disorders infections stroke encephalitis etc. Medical Desision Making - Diagnostic Testing Diagnostic test were ordered, analyzed, and reviewed by me: Yes Radiological Interpretation: Reviewed by me - Risk of complications The pt has a mod risk of morbidity or mortality based on: Need for prescription drug management - Departure Departure Disposition: Home Clinical Impression: Urinary tract infection Condition: Stable Critical Care Time: No Referrals: ENVIVE,ENVIVE [Primary Care Provider] - Follow up/PCP as directed Instructions: Dementia (DC), Urinary Tract Infections in Adults Prescriptions: Cephalexin Mh 500 mg [Keflex 500 mg] 500 mg PO QID #40 cap
[2022-11-10] MEDS ORDERED: Sodium Chloride 0.9% 1000 ML 1,000 ML IV SCH (09:30)
[2022-11-10 09:56] LABS: Absolute Neutrophil Ct (ANC) 2.69 x10^3/uL (1.4-6.9); BASOPHIL % 0.4 % (0.0-0.4); Basophil (Absolute #) 0.02 x10^3/uL (0-0.4); Eosinophil % 2.6 % (0.00-5.0); Eosinophil (Absolute #) 0.12 x10^3/uL (0-0.5); Hematocrit 36.4 % (42-50); Hemoglobin 11.6 g/dL (12.5-18.0); IMMATURE GRAN # 0.01 x10^3u/L (0.00-0.03); IMMATURE GRAN % 0.2 % (0.00-0.4); Lymphocyte (Absolute #) 1.26 x10^3/uL (1.0-4.6); Lymphocytes % 27.7 % (24.0-44.0); Mean Cell Volume 97.6 fL (78-100); Mean Corpuscular Hemoglobin 31.1 pg (26-32); Mean Corpuscular Hgb Concent. 31.9 g/dL (32-36); Mean Platelet Volume 10.3 fL (7.5-11.0); Monocyte (Absolute #) 0.45 x10^3/uL (0.0-1.3); Monocytes % 9.9 % (0.0-12.0); Neutrophil % 59.2 % (36.0-66.0); Platelet Count 139 x10^3/uL (150-450); Red Blood Count 3.73 x10^6/uL (4.1-5.6); Red Cell Distribution Width 15.2 % (11.5-14.0); White Blood Count 4.6 x10^3/uL (4.0-10.5)
[2022-11-10 10:03] LABS: Appearance Clear (Clear); Bacteria None Seen /HPF (None Seen); Bilirubin Negative (Negative); Blood Negative (Negative); Epithelial Cells None Seen /HPF (None Seen); Glucose, Urine Negative (Negative); Hyaline Casts NONE SEEN /LPF (0-2); Ketones Negative (Negative); Leukocyte Esterase Moderate (Negative); Nitrite Negative (Negative); Protein,Urine Dip Negative (Negative); RBC 0-2 /HPF (0-5); Specific Gravity 1.015 (1.005-1.030); Urobilinogen 0.2 mg/dL (0.2); WBC 21-50 /HPF (0-5)
[2022-11-10 10:05] LABS: ADD URINE CULTURE? YES (NO)
[2022-11-10 10:10] LABS: ALBUMIN 3.7 g/dL (3.5-5.0); ALKALINE PHOSPHATASE 42 U/L (38-126); ANION GAP 12.7 MEQ/L (5-15); BLOOD UREA NITROGEN 12 mg/dL (9-20); CHLORIDE 104 mmol/L (98-107); Calcium 9.1 mg/dL (8.4-10.2); Carbon Dioxide 28 mmol/L (22-30); Creatinine 1 1.05 mg/dL (0.66-1.25); EST GLOMERULAR FILTRATION RATE > 60.0 ML/MIN; Glucose 218 mg/dL (74-106); Potassium 3.7 mmol/L (3.5-5.1); SGOT/AST 24 U/L (17-59); SGPT/ALT 18 U/L (0-50); SODIUM 140 mmol/L (137-145); Total Protein 7.2 g/dL (6.3-8.2)
[2022-11-10 10:12] LABS: INR 1.01 (0.8-3.0); PTT 27.8 SECONDS (25.1-36.5)
[2022-11-10] MEDS ORDERED: ROCEPHIN 1 Gm-D5w 50 ml Bag** 1 G/50 ML IVPB IV STA (11:13)
[2022-11-10] MEDS ORDERED: ROCEPHIN 1 Gm-D5w 50 ml Bag** 1 G/50 ML IVPB IV ONE (11:14)
[2022-11-10 11:19] VITALS: BP 130/52; PULSE 56; O2SAT 99
--- NOTE | 2022-11-10 20:04 | XRAY ---
Indication: General weakness. Comparison: None Portable chest inflated and clear with incidental tiny right base calcified granuloma. Heart not enlarged. Bony thorax intact with osteopenia and mild degenerative changes. Impression: Nonacute chest with chronic features.
--- NOTE | 2022-11-10 20:10 | XRAY ---
Indication: Acute mental status change. Poor historian. Multiple contiguous axial images obtained through the head without contrast. Comparison: April 11, 2022 Again age-appropriate global atrophy, moderate periventricular degenerative micro-ischemia bilaterally, and tiny left periventricular remote lacunar infarcts. No acute intracranial hemorrhage, abnormal extra-axial fluid collection, or mass effect. Fourth ventricle is midline without hydrocephalus. Bony calvarium intact. Visualized paranasal sinuses and mastoid air cells are clear. Impression: Continued nonacute senile brain with remote lacunar infarcts. Comment: Preliminary interpretation made by [facility]. No critical discrepancy.
== END 2022-11-10 11:44 | disposition home or self-care (01) ==
LOC: ED 09:12
DX: N39.0 Urinary tract infection, site not specified (principal); R41.0 Disorientation, unspecified; F03.90 Unspecified dementia, unspecified severity, without behavioral disturbance, psychotic disturbance, mood disturbance, and anxiety; Z79.891 Long term (current) use of opiate analgesic; Z79.899 Other long term (current) drug therapy
CPT/HCPCS: 36415; 70450; 71045; 80053; 81001; 82140; 83605; 84443; 85025; 85610; 85730; 87086; 93005; 96360; 96361; 96365; 99284; J0696

== ENCOUNTER 2022-11-12 16:36 | Emergency (ER) | payer MEDICARE ==
--- NOTE | 2022-11-12 16:54 | ERPHSYRPT ---
- History of Present Illness Time Seen by Provider: 11/12/22 16:49 Source: patient, EMS, intermediate records Exam Limitations: clinical condition Physician History: This is an 82-year-old white male patient resident of [facility]. Patient was brought to the emergency department by the ambulance service because of significant, acute confusion. This patient does have significant dementia. Patient was recently seen in our emergency department, 11/10/2022, for the same issue. He is having episodes of acute deterioration in his mental status. He is a poor historian. I reviewed old emergency room record from 11/10/2022. In addition, I reviewed the most up-to-date intermediate notes. On 11/10/2022 patient was diagnosed with a urinary tract infection which likely worsened his dementia and increased his confusion. A CAT scan of his head without contrast on 11/10/2022 showed no acute intracranial findings. There was a nonacute CAT scan with nonacute senile brain and remote lacunar infarcts. Patient also had a chest x-ray performed and this showed no acute processes but there were chronic features present. Additional history was obtained from the paramedics. The paramedics said that they felt he was confused when they first picked him up from the facility. However, by the time he arrived to the emergency department, his mental status returned to baseline for him. At the time of my examination of him, he is speaking clearly, he is pleasantly confused, his vital signs are stable he is in no distress. He has no complaints of chest pain or shortness of breath or abdominal pain. Activities at Onset: none Severity of Dyspnea-Max: mild (To moderate) Severity of Dyspnea-Current: none (Does not appear to to have dyspnea) Possible Cause: occasional episodes Modifying Factors: Improves With: nothing Associated Symptoms: denies symptoms Allergies/Adverse Reactions: aspirin Allergy (Verified 11/12/22 17:00) Home Medications: Acetaminophen 325 mg [Tylenol 325 mg] 650 mg PO Q4H PRN 01/05/22 [History] Magnesium Hydroxide [Milk of Magnesia] 30 ml PO DAILY 01/05/22 [History] Tramadol HCl 50 mg [Ultram 50 mg] 50 mg PO Q6H PRN 01/05/22 [History] bisacodyL [Bisacodyl] 10 mg RC DAILY PRN 01/05/22 [History] Bismuth Subsalicylate [Pepto-Bismol] 30 ml PO Q4H PRN 11/10/22 [History] Butalb/Acetaminophen/Caffeine [Esgic 50-325-40 mg Tablet] 1 tab PO TID PRN 11/10/22 [History] Cholestyramine Light 4 gm [QUESTRAN Light 4 GM Packet] 4 gm PO DAILY 11/10/22 [History] Glycerin/Propylene Glycol [Artificial Tears Drops] 2 drops OP QID PRN PRN 11/10/22 [History] Hydrochlorothiazide 25 mg [hydroDIURIL 25 MG] 25 mg PO DAILY 11/10/22 [History] Loperamide HCl 2 mg [Imodium 2 mg] 2 mg PO Q6HPRN PRN 11/10/22 [History] Loratadine 10 mg [Claritin 10 mg] 10 mg PO DAILY 11/10/22 [History] Memantine HCl 5 mg [Namenda 5 MG] 5 mg PO BID 11/10/22 [History] Metoprolol Succinate 50 mg [Toprol Xl 50 MG] 50 mg PO BID 11/10/22 [History] Polyethylene Glycol 3350 [Miralax] 17 gm PO DAILY PRN 11/10/22 [History] Potassium Chloride 20 meq PO TID 11/10/22 [History] Risperidone Microspheres [Risperdal Consta] 25 mg IM Q14D 11/10/22 [History] Saccharomyces Boulardii 250 mg PO DAILY 11/10/22 [History] Sertraline HCl 50 mg [Zoloft 50 mg Tablet] 25 mg PO DAILY 11/10/22 [History] Sodium Phosphate,[place]-Dibasic [Fleet Enema] 133 ml RC DAILY PRN 11/10/22 [History] Hx Tetanus, Diphtheria Vaccination/Date Given: No Hx Influenza Vaccination/Date Given: No Hx Pneumococcal Vaccination/Date Given: No Travel Risk - International Travel Have you traveled outside of the country in past 3 weeks: No - Coronavirus Screening Are you exhibiting any of the following symptoms?: No Close contact with a COVID-19 positive Pt in past 14-21 Days: No - Vaccine Status Have you recieved a Covid-19 vaccination: Yes Spd Manager: Unknown - Vaccination Dates Dates if Unknown: UNKNOWN - Review of Systems Constitutional: No Symptoms Eyes: No Symptoms Ears, Nose, & Throat: No Symptoms Respiratory: No Symptoms Cardiac: No Symptoms Abdominal/Gastrointestinal: No Symptoms Genitourinary Symptoms: No Symptoms Musculoskeletal: No Symptoms Skin: No Symptoms Neurological: No Symptoms Psychological: Memory Loss (Patient has dementia and episodes of acute deterioration of mental status) Endocrine: No Symptoms Hematologic/Lymphatic: No Symptoms Immunological/Allergic: No Symptoms All Other Systems: Reviewed and Negative - Past Medical History Pertinent Past Medical History: Yes (Questionable histori) Neurological History: No Pertinent History ENT History: No Pertinent History Cardiac History: No Pertinent History Respiratory History: No Pertinent History Endocrine Medical History: No Pertinent History Musculoskeletal History: No Pertinent History GI Medical History: No Pertinent History History: No Pertinent History Psycho-Social History: No Pertinent History Male Reproductive Disorders: No Pertinent History Other Medical History: blood clots in lungs, pt is poor historian, does not know - Past Surgical History Past Surgical History: No (unknown) Neuro Surgical History: No Pertinent History Cardiac: No Pertinent History Respiratory: No Pertinent History Gastrointestinal: No Pertinent History Genitourinary: No Pertinent History Musculoskeletal: No Pertinent History Male Surgical History: No Pertinent History Other Surgical History: no paper work sent from intermediate. unsure of surgical history - Social History Smoking Status: Former smoker Exposure to second hand smoke: No Drug Use: none Patient Lives Alone: No - Nursing Vital Signs Nursing Vital Signs: Initial Vital Signs Temperature 97.1 F 11/12/22 16:39 Pulse Rate 53 L 11/12/22 16:39 Respiratory Rate 14 11/12/22 16:39 Blood Pressure 136/72 11/12/22 16:39 O2 Sat by Pulse Oximetry 97 11/12/22 16:39 Pain Scale Pain Intensity 0 - Physical Exam General Appearance: no apparent distress, alert, anxiety Eye Exam: PERRL/EOMI, eyes nml inspection Ears, Nose, Throat Exam: hearing grossly normal, normal ENT inspection, normal pharynx Neck Exam: normal inspection, non-tender, supple, full range of motion Respiratory Exam: normal breath sounds, lungs clear, airway intact, No chest tenderness Cardiovascular/Chest Exam: normal heart sounds, regular rate/rhythm, normal peripheral pulses Abdominal/Gastrointestinal Exam: soft, normal bowel sounds, No tenderness Rectal Exam: not done Extremity Exam: non-tender Neurologic Exam: alert, cooperative, 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 tested, normal mood/affect, sensation nml, other (Oriented to self and location) Skin Exam: normal color, warm, dry Lymphatic Exam: No adenopathy SpO2 Interpretation: normal O2 Delivery: Room Air - Course Nursing assessment & vital signs reviewed: Yes Ordered Tests: Active Orders 24 hr Category Date Time Status CBC W DIFF Stat Lab 11/12/22 17:05 Completed CMP Stat Lab 11/12/22 17:05 Completed UA W/RFX UR CULTURE Stat Lab 11/12/22 17:28 Completed Medication Summary Discontinued Medications Generic Name Dose Route Start Last Admin Trade Name Freq PRN Reason Stop Dose Admin Benzonatate 100 mg 11/12/22 17:45 11/12/22 17:47 Benzonatate 100 Mg Capsule PO 11/12/22 17:46 100 mg STAT ONE Administration Benzonatate Confirm 11/12/22 17:46 Benzonatate 100 Mg Capsule Administered 11/12/22 17:47 Dose 100 mg PO .True Style ONE Lab/Rad Data: Laboratory Result Diagrams 11/12/22 17:05 11/12/22 17:05 Laboratory Results 11/12/22 11/12/22 11/12/22 Range/Units 17:28 17:05 17:05 WBC 3.9 L (4.0-10.5) x10^3/uL RBC 3.71 L (4.1-5.6) x10^6/uL Hgb 11.5 L (12.5-18.0) g/dL Hct 36.2 L (42-50) % MCV 97.6 (78-100) fL MCH 31.0 (26-32) pg MCHC 31.8 L (32-36) g/dL RDW 15.3 H (11.5-14.0) % Plt Count 119 L (150-450) x10^3/uL MPV 9.8 (7.5-11.0) fL Gran % 46.7 (36.0-66.0) % Immature Gran % (Auto) 0.5 H (0.00-0.4) % Nucleat RBC Rel Count 0.0 (0.00-0.1) % Eos # (Auto) 0.13 (0-0.5) x10^3/uL Immature Gran # (Auto) 0.02 (0.00-0.03) x10^3u/L Absolute Lymphs (auto) 1.42 (1.0-4.6) x10^3/uL Absolute Monos (auto) 0.50 (0.0-1.3) x10^3/uL Absolute Nucleated RBC 0.00 (0.00-0.01) x10^3u/L Lymphocytes % 36.0 (24.0-44.0) % Monocytes % 12.7 H (0.0-12.0) % Eosinophils % 3.3 (0.00-5.0) % Basophils % 0.8 (0.0-0.4) % Absolute Granulocytes 1.84 (1.4-6.9) x10^3/uL Basophils # 0.03 (0-0.4) x10^3/uL Sodium 139 (137-145) mmol/L Potassium 4.1 (3.5-5.1) mmol/L Chloride 102 (98-107) mmol/L Carbon Dioxide 29 (22-30) mmol/L Anion Gap 12.4 (5-15) MEQ/L BUN 8 L (9-20) mg/dL Creatinine 0.84 (0.66-1.25) mg/dL Estimated GFR > 60.0 ML/MIN Glucose 110 H (74-106) mg/dL Calcium 9.0 (8.4-10.2) mg/dL Total Bilirubin 0.30 (0.2-1.3) mg/dL AST 31 (17-59) U/L ALT 20 (0-50) U/L Alkaline Phosphatase 44 (38-126) U/L Serum Total Protein 7.6 (6.3-8.2) g/dL Albumin 3.9 (3.5-5.0) g/dL Urine Color Yellow (Yellow) Urine Appearance Clear (Clear) Urine pH 5.0 (4.6-8.0) Ur Specific [place] 1.010 (1.005-1.030) Urine Protein Negative (Negative) Urine Glucose (UA) Negative (Negative) mg/dL Urine Ketones Negative (Negative) Urine Blood Negative (Negative) Urine Nitrite Negative (Negative) Urine Bilirubin Negative (Negative) Urine Urobilinogen 0.2 (0.2) mg/dL Ur Leukocyte Esterase Negative (Negative) U Hyaline Cast (Auto) NONE SEEN (0-2) /LPF Urine Microscopic RBC 0-2 (0-5) /HPF Urine Microscopic WBC 3-5 (0-5) /HPF Ur Epithelial Cells Rare (None Seen) /HPF Urine Bacteria Rare A (None Seen) /HPF Urine Culture Reflexed NO (NO) - Progress Progress: improved Air Movement: good, poor Progress Note: 11/12/22 18:12 This patient's medical issue is 1 of low complexity. The level of complexity in the work-up ordered was based on review of the patient's past medical history, his recent stay in the emergency department, review of intermediate records, history that is obtained from the paramedics and history of present illness and physical findings on examination. The patient had extensive work-up on 11/10/2022. I do not think it was necessary to repeat a CAT scan of his head and repeat a chest x-ray. The patient himself states that he was just coughing and wanted something for cough and because he was coughing so much he felt as though he was going to pass out but he did not and the patient was not sure why they sent him to the emergency department. Patient's mental status is 1 of know n dementia and has had intermittent periods of deterioration but seems to bounce back to normal which is what happened today. CBC and a CMP was performed which is not significantly different than that from 2 days ago. He also had a urinalysis performed which shows improvement. We will discharge him to home with instructions to continue the same treatment plan that is present at the intermediate Blood Culture(s) Obtained: No Antibiotics given: No Counseled pt/family regarding: lab results, diagnosis Medical Desision Making - Independent Historian Additional History obtained from: Longterm nurse (custodial records), Therapeutic Mentor/EMT - Discussion of managment Reviewed:: Test results Agreed on:: Treatment plan - Diagnostic Testing Diagnostic test were ordered, analyzed, and reviewed by me: Yes - Risk of complications Low Risk: Low risk of morbidity from additional dx testing or treatment - Departure Departure Disposition: Home Clinical Impression: Coughing, Dementia Condition: Stable Critical Care Time: No Referrals: ENVIVE,ENVIVE [Primary Care Provider] - Follow up/PCP as directed Additional Instructions: Continue your same treatment plan. Follow-up with your primary care provider for further evaluation and management.
[2022-11-12 17:11] LABS: Absolute Neutrophil Ct (ANC) 1.84 x10^3/uL (1.4-6.9); BASOPHIL % 0.8 % (0.0-0.4); Basophil (Absolute #) 0.03 x10^3/uL (0-0.4); Eosinophil % 3.3 % (0.00-5.0); Eosinophil (Absolute #) 0.13 x10^3/uL (0-0.5); Hematocrit 36.2 % (42-50); Hemoglobin 11.5 g/dL (12.5-18.0); IMMATURE GRAN # 0.02 x10^3u/L (0.00-0.03); IMMATURE GRAN % 0.5 % (0.00-0.4); Lymphocyte (Absolute #) 1.42 x10^3/uL (1.0-4.6); Mean Cell Volume 97.6 fL (78-100); Mean Corpuscular Hgb Concent. 31.8 g/dL (32-36); Mean Platelet Volume 9.8 fL (7.5-11.0); Monocytes % 12.7 % (0.0-12.0); Neutrophil % 46.7 % (36.0-66.0); Platelet Count 119 x10^3/uL (150-450); Red Blood Count 3.71 x10^6/uL (4.1-5.6); Red Cell Distribution Width 15.3 % (11.5-14.0); White Blood Count 3.9 x10^3/uL (4.0-10.5)
[2022-11-12 17:25] LABS: ALBUMIN 3.9 g/dL (3.5-5.0); ALKALINE PHOSPHATASE 44 U/L (38-126); ANION GAP 12.4 MEQ/L (5-15); BLOOD UREA NITROGEN 8 mg/dL (9-20); CHLORIDE 102 mmol/L (98-107); Carbon Dioxide 29 mmol/L (22-30); Creatinine 1 0.84 mg/dL (0.66-1.25); EST GLOMERULAR FILTRATION RATE > 60.0 ML/MIN; Glucose 110 mg/dL (74-106); Potassium 4.1 mmol/L (3.5-5.1); SGOT/AST 31 U/L (17-59); SGPT/ALT 20 U/L (0-50); SODIUM 139 mmol/L (137-145); Total Protein 7.6 g/dL (6.3-8.2)
[2022-11-12 17:38] VITALS: BP 187/92
[2022-11-12 17:44] LABS: Appearance Clear (Clear); Bilirubin Negative (Negative); Blood Negative (Negative); Glucose, Urine Negative (Negative); Hyaline Casts NONE SEEN /LPF (0-2); Ketones Negative (Negative); Leukocyte Esterase Negative (Negative); Nitrite Negative (Negative); Protein,Urine Dip Negative (Negative); RBC 0-2 /HPF (0-5); Urobilinogen 0.2 mg/dL (0.2)
[2022-11-12] MEDS ORDERED: Tessalon Perles 100 MG PO ONE ×2 (17:45→17:46)
[2022-11-12 17:58] LABS: ADD URINE CULTURE? NO (NO); Bacteria Rare /HPF (None Seen); Epithelial Cells Rare /HPF (None Seen)
[2022-11-12 18:03] VITALS: PULSE 54; O2SAT 96
== END 2022-11-12 18:41 | disposition home or self-care (01) ==
LOC: ED 16:36
DX: R05.9 Cough, unspecified (principal); F03.90 Unspecified dementia, unspecified severity, without behavioral disturbance, psychotic disturbance, mood disturbance, and anxiety; Z79.891 Long term (current) use of opiate analgesic; Z79.899 Other long term (current) drug therapy
CPT/HCPCS: 36415; 80053; 81001; 85025; 99283; A9270-GY

== ENCOUNTER 2023-04-05 15:05 | Emergency (ER) | payer MEDICARE ==
--- NOTE | 2023-04-05 15:20 | ERPHSYRPT ---
- History of Present Illness Time Seen by Provider: 04/05/23 15:20 Historian: patient, EMS, old records Exam Limitations: no limitations Physician History: This is an 83-year-old white male patient who is a [facility] resident at [facility] and was brought to the emergency department by gas singer/ambulance service because of chest pain that began approximately 230 this afternoon. At that time, the nursing staff stated that the patient's oxygen saturations were in the 80s. Patient states that the pain is central area sharp and goes to the left ribs. He has had no nausea vomiting or diarrhea. Ambulance service provided the patient with 1 sublingual nitro glycerin prior to arrival. I reviewed old charts of this patient as well as the [facility]p notes. Patient has a history of pulmonary embolus in the past. Patient is a poor historian and has significant dementia. He also has a history of hypertension. Patient has a true aspirin allergy Timing/Duration: today Activities at Onset: none Quality: sharpness Location: central, other (To left anterior ribs) Severity of Pain-Max: mild Severity of Pain-Current: mild Modifying Factors: Improves With: nothing Associated Symptoms: denies symptoms Nitro Today/Relief: 0.4 mg x 1, provided by EMS Aspirin Treatment Today: no aspirin today Allergies/Adverse Reactions: aspirin Allergy (Verified 04/05/23 15:15) Home Medications: Acetaminophen 325 mg [Tylenol 325 mg] 650 mg PO Q4H PRN 01/05/22 [History] Magnesium Hydroxide [Milk of Magnesia] 30 ml PO DAILY 01/05/22 [History] Tramadol HCl 50 mg [Ultram 50 mg] 50 mg PO Q6H PRN 01/05/22 [History] bisacodyL [Bisacodyl] 10 mg RC DAILY PRN 01/05/22 [History] Bismuth Subsalicylate [Pepto-Bismol] 30 ml PO Q4H PRN 11/10/22 [History] Butalb/Acetaminophen/Caffeine [Esgic 50-325-40 mg Tablet] 1 tab PO TID PRN 11/10/22 [History] Cholestyramine Light 4 gm [QUESTRAN Light 4 GM Packet] 4 gm PO DAILY 11/10/22 [History] Glycerin/Propylene Glycol [Artificial Tears Drops] 2 drops OP QID PRN PRN 11/10/22 [History] Hydrochlorothiazide 25 mg [hydroDIURIL 25 MG] 25 mg PO DAILY 11/10/22 [History] Loperamide HCl 2 mg [Imodium 2 mg] 2 mg PO Q6HPRN PRN 11/10/22 [History] Loratadine 10 mg [Claritin 10 mg] 10 mg PO DAILY 11/10/22 [History] Memantine HCl 5 mg [Namenda 5 MG] 5 mg PO BID 11/10/22 [History] Metoprolol Succinate 50 mg [Toprol Xl 50 MG] 50 mg PO BID 11/10/22 [History] Polyethylene Glycol 3350 [Miralax] 17 gm PO DAILY PRN 11/10/22 [History] Potassium Chloride 20 meq PO TID 11/10/22 [History] Risperidone Microspheres [Risperdal Consta] 25 mg IM Q14D 11/10/22 [History] Saccharomyces Boulardii 250 mg PO DAILY 11/10/22 [History] Sertraline HCl 50 mg [Zoloft 50 mg Tablet] 25 mg PO DAILY 11/10/22 [History] Sodium Phosphate,Gilliam-Dibasic [Fleet Enema] 133 ml RC DAILY PRN 11/10/22 [Histor y] Hx Tetanus, Diphtheria Vaccination/Date Given: No Hx Influenza Vaccination/Date Given: No Hx Pneumococcal Vaccination/Date Given: No Travel Risk - International Travel Have you traveled outside of the country in past 3 weeks: No - Coronavirus Screening Are you exhibiting any of the following symptoms?: No Close contact with a COVID-19 positive Pt in past 14-21 Days: No - Vaccine Status Have you recieved a Covid-19 vaccination: Yes 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 - Vaccination Dates Dates if Unknown: UNKNOWN - Review of Systems Constitutional: No Symptoms Eyes: No Symptoms Ears, Nose, & Throat: No Symptoms Respiratory: No Symptoms Cardiac: Chest Pain Abdominal/Gastrointestinal: No Symptoms Genitourinary Symptoms: No Symptoms Musculoskeletal: No Symptoms Skin: No Symptoms Neurological: No Symptoms Psychological: No Symptoms Endocrine: No Symptoms Hematologic/Lymphatic: No Symptoms Immunological/Allergic: No Symptoms All Other Systems: Reviewed and Negative - Past Medical History Pertinent Past Medical History: Yes (Questionable histori) Neurological History: No Pertinent History ENT History: No Pertinent History Cardiac History: No Pertinent History Respiratory History: No Pertinent History Endocrine Medical History: No Pertinent History Musculoskeletal History: No Pertinent History GI Medical History: No Pertinent History History: No Pertinent History Psycho-Social History: No Pertinent History Male Reproductive Disorders: No Pertinent History Other Medical History: blood clots in lungs, pt is poor historian, does not know - Past Surgical History Past Surgical History: No (unknown) Neuro Surgical History: No Pertinent History Cardiac: No Pertinent History Respiratory: No Pertinent History Gastrointestinal: No Pertinent History Genitourinary: No Pertinent History Musculoskeletal: No Pertinent History Male Surgical History: No Pertinent History Other Surgical History: no paper work sent from [facility]. unsure of surgical history - Social History Smoking Status: Former smoker Exposure to second hand smoke: No Drug Use: none Patient Lives Alone: No - Nursing Vital Signs Nursing Vital Signs: Initial Vital Signs Temperature 97.2 F 04/05/23 15:16 Pulse Rate 52 L 04/05/23 15:16 Respiratory Rate 20 04/05/23 15:16 Blood Pressure 110/74 04/05/23 15:16 O2 Sat by Pulse Oximetry 97 04/05/23 15:16 Pain Scale Pain Intensity 0 - Physical Exam General Appearance: no apparent distress, alert Eye Exam: PERRL/EOMI, eyes nml inspection Ears, Nose, Throat Exam: normal ENT inspection, moist mucous membranes Neck Exam: normal inspection, non-tender, supple, full range of motion Respiratory Exam: normal breath sounds, chest tenderness (Patient states that the chest pain is now nearly gone), lungs clear, airway intact, No respiratory distress Cardiovascular Exam: regular rate/rhythm, normal heart sounds, normal peripheral pulses Gastrointestinal/Abdomen Exam: soft, normal bowel sounds, No tenderness Rectal Exam: not done Back Exam: normal inspection, normal range of motion, No CVA tenderness, No vertebral tenderness Extremity Exam: normal inspection, normal range of motion, pelvis stable Neurologic Exam: alert, 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, cooperative, management psychologist II-XII nml as tested, normal mood/affect, nml cerebellar function, nml station & gait, sensation nml Skin Exam: normal color, warm, dry Lymphatic Exam: No adenopathy SpO2 Interpretation: normal O2 Delivery: Room Air - Course Nursing assessment & vital signs reviewed: Yes EKG Interpreted by Me: RATE (54), Sinus Rhythm, NORMAL AXIS, NORMAL QRS, NORMAL ST-T, Other (No acute ischemic changes on today's twelve-lead EKG. There is prolonged LA interval present.) Ordered Tests: Active Orders 24 hr Category Date Time Status Research And Development Scientist STAT Care 04/05/23 15:38 Active EKG-ER Only STAT Care 04/05/23 15:37 Active IV Insertion STAT Care 04/05/23 15:37 Active Pulse Oximetry (ED) STAT Care 04/05/23 15:37 Active CHEST 1 VIEW (PORTABLE) Stat Exams 04/05/23 15:38 Completed CHEST WITH CONTRAST [CT] Stat Exams 04/05/23 17:11 Completed CBC W DIFF Stat Lab 04/05/23 15:55 Completed CMP Stat Lab 04/05/23 15:55 Completed NT PRO BNPII Stat Lab 04/05/23 15:55 Completed TROPONIN Q4H Lab 04/05/23 15:55 Completed TROPONIN Q4H Lab 04/05/23 19:02 Completed TROPONIN Q4H Lab 04/05/23 23:45 Ordered Medication Summary Generic Name Dose Route Start Last Admin Trade Name Freq PRN Reason Stop Dose Admin Sodium Chloride 500 mls @ 100 mls/hr 04/05/23 17:15 04/05/23 17:50 Sodium Chloride 0.9% 500 Ml IV 05/05/23 17:14 100 mls/hr .Q5H BLAIRE Administration Discontinued Medications Generic Name Dose Route Start Last Admin Trade Name Freq PRN Reason Stop Dose Admin Morphine Sulfate 2 mg 04/05/23 16:23 04/05/23 16:38 Morphine Sulfate 2 Mg/Ml Inj IV 04/05/23 16:24 2 mg STAT ONE Administration Morphine Sulfate Confirm 04/05/23 16:34 Morphine Sulfate 2 Mg/Ml Inj Administered 04/05/23 16:35 Dose 2 mg .ROUTE .STK-MED ONE Ondansetron HCl 4 mg 04/05/23 16:23 04/05/23 16:36 Ondansetron Hcl 4 Mg/2 Ml Vial IV 04/05/23 16:24 4 mg STAT ONE Administration Ondansetron HCl Confirm 04/05/23 16:34 Ondansetron Hcl 4 Mg/2 Ml Vial Administered 04/05/23 16:35 Dose 4 mg .ROUTE .STK-MED ONE Lab/Rad Data: Laboratory Result Diagrams 04/05/23 15:55 04/05/23 15:55 Laboratory Results 04/05/23 04/05/23 04/05/23 Range/Units 19:02 15:55 15:55 WBC (4.0-10.5) x10^3/uL RBC (4.1-5.6) x10^6/uL Hgb (12.5-18.0) g/dL Hct (42-50) % MCV (78-100) fL MCH (26-32) pg MCHC (32-36) g/dL RDW (11.5-14.0) % Plt Count (150-450) x10^3/uL MPV (7.5-11.0) fL Gran % (36.0-66.0) % Immature Gran % (Auto) (0.00-0.4) % Nucleat RBC Rel Count (0.00-0.1) % Eos # (Auto) (0-0.5) x10^3/uL Immature Gran # (Auto) (0.00-0.03) x10^3u/L Absolute Lymphs (auto) (1.0-4.6) x10^3/uL Absolute Monos (auto) (0.0-1.3) x10^3/uL Absolute Nucleated RBC (0.00-0.01) x10^3u/L Lymphocytes % (24.0-44.0) % Monocytes % (0.0-12.0) % Eosinophils % (0.00-5.0) % Basophils % (0.0-0.4) % Absolute Granulocytes (1.4-6.9) x10^3/uL Basophils # (0-0.4) x10^3/uL Sodium 137 (137-145) mmol/L Potassium 3.8 (3.5-5.1) mmol/L Chloride 99 (98-107) mmol/L Carbon Dioxide 29 (22-30) mmol/L Anion Gap 12.5 (5-15) MEQ/L BUN 15 (9-20) mg/dL Creatinine 0.97 (0.66-1.25) mg/dL Estimated GFR > 60.0 ML/MIN Glucose 195 H (74-106) mg/dL Calcium 8.8 (8.4-10.2) mg/dL Total Bilirubin 0.30 (0.2-1.3) mg/dL AST 25 (17-59) U/L ALT 19 (0-50) U/L Alkaline Phosphatase 38 (38-126) U/L Troponin I 0.036 H* 0.032 (0.000-0.034) ng/mL NT-Pro-B Natriuret Pep 904 (<300) pg/mL Serum Total Protein 6.8 (6.3-8.2) g/dL Albumin 3.7 (3.5-5.0) g/dL 04/05/23 Range/Units 15:55 WBC 6.4 (4.0-10.5) x10^3/uL RBC 3.80 L (4.1-5.6) x10^6/uL Hgb 11.8 L (12.5-18.0) g/dL Hct 36.8 L (42-50) % MCV 96.8 (78-100) fL MCH 31.1 (26-32) pg MCHC 32.1 (32-36) g/dL RDW 14.1 H (11.5-14.0) % Plt Count 148 L (150-450) x10^3/uL MPV 10.5 (7.5-11.0) fL Gran % 51.5 (36.0-66.0) % Immature Gran % (Auto) 0.3 (0.00-0.4) % Nucleat RBC Rel Count 0.0 (0.00-0.1) % Eos # (Auto) 0.25 (0-0.5) x10^3/uL Immature Gran # (Auto) 0.02 (0.00-0.03) x10^3u/L Absolute Lymphs (auto) 2.15 (1.0-4.6) x10^3/uL Absolute Monos (auto) 0.61 (0.0-1.3) x10^3/uL Absolute Nucleated RBC 0.00 (0.00-0.01) x10^3u/L Lymphocytes % 33.9 (24.0-44.0) % Monocytes % 9.6 (0.0-12.0) % Eosinophils % 3.9 (0.00-5.0) % Basophils % 0.8 (0.0-0.4) % Absolute Granulocytes 3.27 (1.4-6.9) x10^3/uL Basophils # 0.05 (0-0.4) x10^3/uL Sodium (137-145) mmol/L Potassium (3.5-5.1) mmol/L Chloride (98-107) mmol/L Carbon Dioxide (22-30) mmol/L Anion Gap (5-15) MEQ/L BUN (9-20) mg/dL Creatinine (0.66-1.25) mg/dL Estimated GFR ML/MIN Glucose (74-106) mg/dL Calcium (8.4-10.2) mg/dL Total Bilirubin (0.2-1.3) mg/dL AST (17-59) U/L ALT (0-50) U/L Alkaline Phosphatase (38-126) U/L Troponin I (0.000-0.034) ng/mL NT-Pro-B Natriuret Pep (<300) pg/mL Serum Total Protein (6.3-8.2) g/dL Albumin (3.5-5.0) g/dL - Progress Progress: re-examined, unchanged Air Movement: good Progress Note: 04/05/23 16:25 Chest x-ray was interpreted by the radiologist and I reviewed the impression. There is new minimal bibasilar scarring/atelectasis. There is degenerative changes. No acute cardiopulmonary process 04/05/23 19:07 Patient was complaining of chest pain at approximately 1620 on 04/05/2023 so we repeated the twelve-lead EKG. The rate is 53 bpm patient is sinus rhythm there is prolonged LA interval. No acute ischemic changes present. No significant change from the twelve-lead EKG that was done earlier on this patient. 04/05/23 19:44 This patient's medical issue is 1 of moderate complexity. The level complexity in the work-up performed is based on review the patient's past medical history, review of patient's medication list, review the patient's drug allergy list, history of present illness and physical findings on examination. The work-up in this patient includes CBC, CMP, troponin, twelve-lead EKG and chest x-ray. I reviewed the results of the above work-up. Patient's troponin is in the normal range. We will wait for the 3-hour troponin level. Patient has a history of DVT and pulmonary embolism and therefore we performed a CT scan of the chest with contrast. There is no evidence of pulmonary embolism. There is an apical posterior right upper lobe nodular lesion present which will require further histologic evaluation and possibly PET scan. If the patient's 3-hour troponin level is in a normal range, we will discharge the patient back to the [facility]. 04/05/23 20:15 Patient was reexamined. He denies chest pain at this time. He is second troponin is just slightly out of the normal range at 0.036. I looked back at the patient's history and he has had troponins in this range in the past. Patient states that he does not want to be admitted in the hospital and wants to go back to his home. 04/05/23 20:17 Blood Culture(s) Obtained: No Antibiotics given: No Counseled pt/family regarding: lab results, diagnosis, need for follow-up, rad results Medical Desision Making - Independent Historian Additional History obtained from: [facility] nurse, Head Of Mobile/EMT - Diagnostic Testing Diagnostic test were ordered, analyzed, and reviewed by me: Yes Radiological Interpretation: Reviewed by me, Teleradiologist Report - Risk of complications Low Risk: Low risk of morbidity from additional dx testing or treatment - Departure Departure Disposition: Extended Care Facility Clinical Impression: Chest pain Condition: Stable Critical Care Time: No Referrals: ENVIVE,ENVIVE [Primary Care Provider] - Follow up/PCP as directed Additional Instructions: Continue same medications and [facility] care as previously prescribed. Follow-up with patient's primary care provider on 04/08/2023 by phone for further evaluation and management.
[2023-04-05 15:34] VITALS: TEMP 97.2
[2023-04-05 16:12] LABS: Absolute Neutrophil Ct (ANC) 3.27 x10^3/uL (1.4-6.9); BASOPHIL % 0.8 % (0.0-0.4); Basophil (Absolute #) 0.05 x10^3/uL (0-0.4); Eosinophil % 3.9 % (0.00-5.0); Eosinophil (Absolute #) 0.25 x10^3/uL (0-0.5); Hematocrit 36.8 % (42-50); Hemoglobin 11.8 g/dL (12.5-18.0); IMMATURE GRAN # 0.02 x10^3u/L (0.00-0.03); IMMATURE GRAN % 0.3 % (0.00-0.4); Lymphocyte (Absolute #) 2.15 x10^3/uL (1.0-4.6); Lymphocytes % 33.9 % (24.0-44.0); Mean Cell Volume 96.8 fL (78-100); Mean Corpuscular Hemoglobin 31.1 pg (26-32); Mean Corpuscular Hgb Concent. 32.1 g/dL (32-36); Mean Platelet Volume 10.5 fL (7.5-11.0); Monocyte (Absolute #) 0.61 x10^3/uL (0.0-1.3); Monocytes % 9.6 % (0.0-12.0); Neutrophil % 51.5 % (36.0-66.0); Platelet Count 148 x10^3/uL (150-450); Red Cell Distribution Width 14.1 % (11.5-14.0); White Blood Count 6.4 x10^3/uL (4.0-10.5)
--- NOTE | 2023-04-05 16:14 | XRAY ---
Indication: Short of breath and chest pain. Comparison: November 10, 2022 Portable chest demonstrates new minimal bibasilar subsegmental atelectasis/scarring. Stable tiny right base calcified granuloma. Remaining heart and lungs unremarkable. Bony thorax intact again with osteopenia mild degenerative changes.
[2023-04-05] MEDS ORDERED: MORPHINE SULFATE 2 MG INJ IV ONE (16:23)
[2023-04-05] MEDS ORDERED: Zofran 4 MG/2 ML VIAL IV ONE (16:23)
[2023-04-05] MEDS ORDERED: MORPHINE SULFATE 2 MG INJ ONE (16:34)
[2023-04-05] MEDS ORDERED: Zofran 4 MG/2 ML VIAL ONE (16:34)
[2023-04-05 16:43] LABS: ALBUMIN 3.7 g/dL (3.5-5.0); ALKALINE PHOSPHATASE 38 U/L (38-126); ANION GAP 12.5 MEQ/L (5-15); BLOOD UREA NITROGEN 15 mg/dL (9-20); CHLORIDE 99 mmol/L (98-107); Calcium 8.8 mg/dL (8.4-10.2); Carbon Dioxide 29 mmol/L (22-30); Creatinine 1 0.97 mg/dL (0.66-1.25); EST GLOMERULAR FILTRATION RATE > 60.0 ML/MIN; Glucose 195 mg/dL (74-106); NT PRO BNPII 904 pg/mL (<300); Potassium 3.8 mmol/L (3.5-5.1); SGOT/AST 25 U/L (17-59); SGPT/ALT 19 U/L (0-50); SODIUM 137 mmol/L (137-145); Total Protein 6.8 g/dL (6.3-8.2)
[2023-04-05] MEDS ORDERED: Sodium Chloride 0.9% 500 ML 500 ML IV SCH (17:15)
[2023-04-05] MEDS ORDERED: Sodium Chloride 0.9% 500 ML 500 ML IV ONE (17:20)
[2023-04-05 18:51] VITALS: O2SAT 97
[2023-04-05 19:29] VITALS: BP 104/60; PULSE 53; RESP 17
--- NOTE | 2023-04-05 19:29 | XRAY ---
CLINICAL HISTORY:h/o DVT and PE;cp COMPARISON:None. TECHNIQUE:Contiguous 3.[address] images of the chest were acquired with the administration of intravenous contrast. Coronal and sagittal reconstructions were obtained.80c.c of Isovue 370 was administered for post-contrast images. DLP 1068.81mGy-cm. FINDINGS: There is a solid nodular opacity with irregular margins measuring 2.1 X 1.7cm seen in the apical and posterior segment of the right upper lobe. A small calcified granuloma is seen in the posterior basal segment of the right lower lobe measuring 7mm. Some ground glassing and interstitial thickening are seen in both lower lobes posteriorly. The rest of the scanned pulmonary parenchyma appears normal. Few subcentimeter mediastinal lymph nodes were seen, the largest measuring about 9 mm in the pretracheal region Major pulmonary vessels are normally opacified bilaterally till their second-order branches. Mild right-sided pleural thickening is noted. No vianney effusions. Heart size is normal, and there is no pericardial effusion. The scanned upper abdomen is unremarkable. A Sliding hiatal hernia is noted. Degenerative changes are seen in the spine. No obvious lytic or sclerotic deposit. IMPRESSION: 1. No definite evidence of pulmonary embolism of major vessels. 2. A solid nodular lesion is seen in the apico-posterior segment of the right upper lobe measuring about 2.1 X 1.7 cm- Lung RADS 4B. which requires further evaluation with histopathology/PET CT. 3. A few subcentimeter mediastinal lymph nodes were seen, the largest measuring about 9 mm in the pretracheal region. Electronically Signed by: Regulo Sanderson MD. (04/05/2023 18:27:12 ROLL SHEETING CUTTER)
== END 2023-04-05 20:37 | disposition home or self-care (01) ==
LOC: ED 15:05
DX: R07.9 Chest pain, unspecified (principal); F03.90 Unspecified dementia, unspecified severity, without behavioral disturbance, psychotic disturbance, mood disturbance, and anxiety; I10 Essential (primary) hypertension; Z79.891 Long term (current) use of opiate analgesic; Z79.899 Other long term (current) drug therapy
CPT/HCPCS: 36415; 71045; 71260; 80053; 83880; 84484; 85025; 93005; 93041; 94760; 96374; 96375; 99284; J2270; J2405

== ENCOUNTER 2023-12-29 11:25 | Emergency (ER) | payer MEDICARE ==
[2023-12-29 11:27] VITALS: TEMP 97.2
--- NOTE | 2023-12-29 12:18 | ERPHSYRPT ---
- History of Present Illness Time Seen by Provider: 12/29/23 12:16 Source: patient, EMS, [facility] records Exam Limitations: no limitations Patient Subjective Stated Complaint: pt here for swelling worse to right lower leg for a couple days, told ems he was not sob,but tells nurse he is occ, no cough or fever Triage Nursing Assessment: pt alert, resp easy, no cough, has swelling to right lower leg +2 and +1 to left lower leg, no redness or warmth noted Physician History: Patient is 83-year-old male [facility] resident with significant past medical history of coronary artery disease chronic renal insufficiency hypertension COPD chronic liver disease started having some swelling on his legs and hands show he was brought into the emergency room by ambulance from [facility]. Patient denies any symptoms including chest pain shortness of breath cough cold fever chills any blood in the urine or stool dizziness or headache. Timing/Duration: day(s) (two days) Nitro Today/Relief: no nitro taken today Aspirin Treatment Today: no aspirin today Associated Symptoms: denies symptoms Allergies/Adverse Reactions: aspirin Allergy (Verified 12/29/23 11:26) Home Medications: Acetaminophen 325 mg [Tylenol 325 mg] 650 mg PO Q4H PRN 01/05/22 [History] Magnesium Hydroxide [Milk of Magnesia] 30 ml PO DAILY 01/05/22 [History] Tramadol HCl 50 mg [Ultram 50 mg] 50 mg PO Q6H PRN 01/05/22 [History] bisacodyL [Bisacodyl] 10 mg RC DAILY PRN 01/05/22 [History] Bismuth Subsalicylate [Pepto-Bismol] 30 ml PO Q4H PRN 11/10/22 [History] Butalb/Acetaminophen/Caffeine [Esgic 50-325-40 mg Tablet] 1 tab PO TID PRN 11/10/22 [History] Cholestyramine Light 4 gm [QUESTRAN Light 4 GM Packet] 4 gm PO DAILY 11/10/22 [History] Glycerin/Propylene Glycol [Artificial Tears Drops] 2 drops OP QID PRN PRN 11/10/22 [History] Hydrochlorothiazide 25 mg [hydroDIURIL 25 MG] 25 mg PO DAILY 11/10/22 [History] Loperamide HCl 2 mg [Imodium 2 mg] 2 mg PO Q6HPRN PRN 11/10/22 [History] Loratadine 10 mg [Claritin 10 mg] 10 mg PO DAILY 11/10/22 [History] Memantine HCl 5 mg [Namenda 5 MG] 5 mg PO BID 11/10/22 [History] Metoprolol Succinate 50 mg [Toprol Xl 50 MG] 50 mg PO BID 11/10/22 [History] Polyethylene Glycol 3350 [Miralax] 17 gm PO DAILY PRN 11/10/22 [History] Potassium Chloride 20 meq PO TID 11/10/22 [History] Risperidone Microspheres [Risperdal Consta] 25 mg IM Q14D 11/10/22 [History] Saccharomyces Boulardii 250 mg PO DAILY 11/10/22 [History] Sertraline HCl 50 mg [Zoloft 50 mg Tablet] 25 mg PO DAILY 11/10/22 [History] Sodium Phosphate,Wilkin-Dibasic [Fleet Enema] 133 ml RC DAILY PRN 11/10/22 [History] Hx Tetanus, Diphtheria Vaccination/Date Given: No Hx Influenza Vaccination/Date Given: No Hx Pneumococcal Vaccination/Date Given: No Immunizations Up to Date: Yes Travel Risk - International Travel Have you traveled outside of the country in past 3 weeks: No - Emerging Infectious Disease Are you exhibiting symptoms associated with any current EIDs: No - Review of Systems Constitutional: No Fever, No Chills Eyes: No Symptoms Ears, Nose, & Throat: No Symptoms Respiratory: No Cough, No Dyspnea Cardiac: Edema, No Chest Pain, No Syncope Abdominal/Gastrointestinal: No Abdominal Pain, No Nausea, No Vomiting, No Diarrhea Genitourinary Symptoms: No Dysuria Musculoskeletal: No Back Pain, No Neck Pain Skin: No Rash Neurological: No Dizziness, No Focal Weakness, No Sensory Changes Psychological: No Symptoms Endocrine: No Symptoms All Other Systems: Reviewed and Negative - Past Medical History Pertinent Past Medical History: Yes (Questionable histori) Neurological History: No Pertinent History ENT History: No Pertinent History Cardiac History: No Pertinent History Respiratory History: No Pertinent History Endocrine Medical History: No Pertinent History Musculoskeletal History: No Pertinent History GI Medical History: No Pertinent History History: No Pertinent History Psycho-Social History: No Pertinent History Male Reproductive Disorders: No Pertinent History Other Medical History: blood clots in lungs, pt is poor historian, does not know - Past Surgical History Past Surgical History: No (unknown) Neuro Surgical History: No Pertinent History Cardiac: No Pertinent History Respiratory: No Pertinent History Gastrointestinal: No Pertinent History Genitourinary: No Pertinent History Musculoskeletal: No Pertinent History Male Surgical History: No Pertinent History Other Surgical History: no paper work sent from [facility]. unsure of surgical history - Social History Smoking Status: Former smoker Exposure to second hand smoke: No Drug Use: none Patient Lives Alone: No - Nursing Vital Signs Nursing Vital Signs: Initial Vital Signs Temperature 97.2 F 12/29/23 11:26 Pulse Rate 79 12/29/23 11:26 Respiratory Rate 18 12/29/23 11:26 Blood Pressure 120/59 12/29/23 11:26 O2 Sat by Pulse Oximetry 96 12/29/23 11:26 Pain Scale Pain Intensity 2 - Physical Exam General Appearance: no apparent distress, alert Eye Exam: PERRL/EOMI, eyes nml inspection Ears, Nose, Throat Exam: normal ENT inspection, moist mucous membranes Neck Exam: normal inspection, non-tender, supple Respiratory Exam: diminished breath sounds, crackles/rales, rhonchi, No respiratory distress Cardiovascular Exam: regular rate/rhythm, capillary refill >3 sec, edema Gastrointestinal/Abdomen Exam: soft, No tenderness, No mass Back Exam: normal inspection, No CVA tenderness, No vertebral tenderness Extremity Exam: normal inspection, normal range of motion Neurologic Exam: alert, 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, cooperative, normal mood/affect, nml cerebellar function, sensation nml, No motor deficits Skin Exam: normal color, warm, dry Lymphatic Exam: No adenopathy SpO2: 96 - Course Nursing assessment & vital signs reviewed: Yes Ordered Tests: Active Orders 24 hr Category Date Time Status EKG-ER Only STAT Care 12/29/23 11:50 Active CHEST 1 VIEW (PORTABLE) Stat Exams 12/29/23 11:51 Ordered CBC W DIFF Stat Lab 12/29/23 12:20 Completed CMP Stat Lab 12/29/23 12:20 Completed MAGNESIUM Stat Lab 12/29/23 12:20 Completed NT PRO BNPII Stat Lab 12/29/23 12:20 Completed Lab/Rad Data: Laboratory Result Diagrams 12/29/23 12:20 12/29/23 12:20 Laboratory Results 12/29/23 12/29/23 12/29/23 Range/Units 12:20 12:20 12:20 WBC 6.5 (4.0-10.5) x10^3/uL RBC 3.96 L (4.1-5.6) x10^6/uL Hgb 12.5 (12.5-18.0) g/dL Hct 38.3 L (42-50) % MCV 96.7 (78-100) fL MCH 31.6 (26-32) pg MCHC 32.6 (32-36) g/dL RDW 15.0 H (11.5-14.0) % Plt Count 176 (150-450) x10^3/uL MPV 9.7 (7.5-11.0) fL Gran % 65.9 (36.0-66.0) % Immature Gran % (Auto) 0.3 (0.00-0.4) % Nucleat RBC Rel Count 0.0 (0.00-0.1) % Eos # (Auto) 0.16 (0-0.5) x10^3/uL Immature Gran # (Auto) 0.02 (0.00-0.03) x10^3u/L Absolute Lymphs (auto) 1.46 (1.0-4.6) x10^3/uL Absolute Monos (auto) 0.56 (0.0-1.3) x10^3/uL Absolute Nucleated RBC 0.00 (0.00-0.01) x10^3u/L Lymphocytes % 22.4 L (24.0-44.0) % Monocytes % 8.6 (0.0-12.0) % Eosinophils % 2.5 (0.00-5.0) % Basophils % 0.3 (0.0-0.4) % Absolute Granulocytes 4.29 (1.4-6.9) x10^3/uL Basophils # 0.02 (0-0.4) x10^3/uL Sodium 140 (135-145) mmol/L Potassium 3.9 (3.5-5.1) mmol/L Chloride 107 (98-107) mmol/L Carbon Dioxide 24 (22-30) mmol/L Anion Gap 13.2 (5-15) MEQ/L BUN 8 L (9-20) mg/dL Creatinine 0.78 (0.66-1.25) mg/dL Estimated GFR 87.9 ML/MIN Glucose 158 H (74-106) mg/dL Calcium 9.6 (8.4-10.2) mg/dL Magnesium 2.1 (1.6-2.3) mg/dL Total Bilirubin 0.40 (0.2-1.3) mg/dL AST 24 (17-59) U/L ALT 17 (0-50) U/L Alkaline Phosphatase 47 (38-126) U/L NT-Pro-B Natriuret Pep 1190 (<300) pg/mL Serum Total Protein 7.8 (6.3-8.2) g/dL Albumin 4.3 (3.5-5.0) g/dL - Progress Progress: improved Air Movement: good Blood Culture(s) Obtained: No Antibiotics given: No Counseled pt/family regarding: lab results, diagnosis, need for follow-up, rad results Medical Desision Making - Independent Historian Additional History obtained from: Correction nurse - Diagnostic Testing Diagnostic test were ordered, analyzed, and reviewed by me: Yes Radiological Interpretation: Interpreted by me, Reviewed by me - Risk of complications Low Risk: Low risk of morbidity from additional dx testing or treatment The pt has a mod risk of morbidity or mortality based on: Need for prescription drug management - Departure Departure Disposition: Extended Care Facility Clinical Impression: Leg swelling, Bilateral hand swelling CHF (congestive heart failure), NYHA class III Qualifiers: Congestive heart failure type: combined Congestive heart failure chronicity: chronic Qualified Code(s): I50.42 - Chronic combined systolic (congestive) and diastolic (congestive) heart failure Condition: Stable Critical Care Time: No Referrals: ENVIVE,ENVIVE [Primary Care Provider] - Follow up/PCP as directed Instructions: Heart Failure, Dependent Edema (DC) Additional Instructions: Continue all home meds. Discharge/Care Plan WILLIAMYOMAIRA Gomez was seen on 12/29/23 in the Emergency Room. The patient was counseled regarding Diagnosis,Lab results, Imaging studies, need for follow up and when to return to the Emergency Room. Prescriptions given: Discharge Note I have spoken with the patient and/or caregivers. I have explained the patient's condition, diagnosis and treatment plan based on the information available to me at this time. I have answered the patient's and/or caregiver's questions and addressed any concerns. The patient and/or caregivers have as good understanding of the patient's diagnosis, condition and treatment plan as can be expected at this point. The vital signs have been stable. The patient's condition is stable and appropriate for discharge from the emergency department. The patient will pursue further outpatient evaluation with the primary care physician or other designated or consulting physician as outlined in the discharge instructions. The patient and/or caregivers are agreeable to this plan of care and follow-up instructions have been explained in detail. The patient and/or caregivers have received these instruction. The patient/and or caregivers are aware that any significant change in condition or worsening of symptoms rigo uld prompt an immediate return to this or the closest emergency department or call 911. YOMAIRA THOMAS was seen on 12/29/23 n the Emergency Room. At that time you were treated for an emergent condition, during your visit Laboratory, Radiology and/or other procedures may have been ordered. It is very important that you follow-up with your Primary Care Physician ENVIVE within the next 24-48 hours to review your Emergency Room visit and the final results of testing that was ordered. Some test results such as Urine Cultures, Blood Cultures, and other cultures if ordered will not be finalized for 24-48 hours. If you do not have a Primary Care Provider please call the medical records department at [phone] to obtain a copy of your results or you may sign into our patient portal to obtain these results by visiting us @ [email or web address] and completing the following steps: 1. Click on the Patient Portal link 2. Click the Patient Self Enrollment Link to complete the enrollment form and entering your 3. Once the enrollment form is completed you will receive an email with a temporary ID and password at the email address you provided. 4. Next choose a user name and password. Your user name must be at least 4 characters long and your password must be at least 4 characters long. 5. Choose a security question from the list and provide your answer to the ques tion. If you already have signed into the Health Portal you may access your Health Car e Information 11/03 by the following steps: 1. Login to our website @ [email or web address] 2. Enter your original user name and password. FAQS The [facility] Health Portal is an online tool that contains your Lab Results, Radiology Reports, Visit History, Discharge Instructions and Health Summary Lab and Radiology Results will not be available for 72 hours on the portal. The Portal is a secure site, passwords are encryted and URLs are re-written so they cannot be copied and pasted. You and authorized family members are the only ones who can access your Portal. Also there is a timeout feature that protects your information if you leave the Portal page open. If you have technical difficulty please use the Contact Us link on the page this will allow you to submit any questions you have regarding the Portal or you may contact the Medical Record Department at [phone].
[2023-12-29 12:24] LABS: Absolute Neutrophil Ct (ANC) 4.29 x10^3/uL (1.4-6.9); BASOPHIL % 0.3 % (0.0-0.4); Basophil (Absolute #) 0.02 x10^3/uL (0-0.4); Eosinophil % 2.5 % (0.00-5.0); Eosinophil (Absolute #) 0.16 x10^3/uL (0-0.5); Hematocrit 38.3 % (42-50); Hemoglobin 12.5 g/dL (12.5-18.0); IMMATURE GRAN # 0.02 x10^3u/L (0.00-0.03); IMMATURE GRAN % 0.3 % (0.00-0.4); Lymphocyte (Absolute #) 1.46 x10^3/uL (1.0-4.6); Lymphocytes % 22.4 % (24.0-44.0); Mean Cell Volume 96.7 fL (78-100); Mean Corpuscular Hemoglobin 31.6 pg (26-32); Mean Corpuscular Hgb Concent. 32.6 g/dL (32-36); Mean Platelet Volume 9.7 fL (7.5-11.0); Monocyte (Absolute #) 0.56 x10^3/uL (0.0-1.3); Monocytes % 8.6 % (0.0-12.0); Neutrophil % 65.9 % (36.0-66.0); Platelet Count 176 x10^3/uL (150-450); Red Blood Count 3.96 x10^6/uL (4.1-5.6); White Blood Count 6.5 x10^3/uL (4.0-10.5)
[2023-12-29 12:38] LABS: ALBUMIN 4.3 g/dL (3.5-5.0); ANION GAP 13.2 MEQ/L (5-15); BILIRUBIN,TOTAL 0.4 mg/dL (0.2-1.3); Calcium 9.6 mg/dL (8.4-10.2); Creatinine 1 0.78 mg/dL (0.66-1.25); EST GLOMERULAR FILTRATION RATE 87.9 ML/MIN; MAGNESIUM 2.1 mg/dL (1.6-2.3); Potassium 3.9 mmol/L (3.5-5.1); Total Protein 7.8 g/dL (6.3-8.2)
[2023-12-29 13:49] VITALS: BP 114/59; PULSE 88; RESP 23; O2SAT 94
--- NOTE | 2023-12-29 18:01 | XRAY ---
Indication: Leg swelling. Comparison: April 05, 2023 Portable chest is now hyperinflated again with subtle right upper lobe nodularity detailed on CT chest April 05, 2023. Otherwise no focal infiltrate, consolidation, or large effusion. Heart and mediastinal structures within normal limits. Bony thorax intact again with osteopenia and mild degenerative changes. Impression: Stable subtle right upper lobe nodularity reported in CT chest April 05, 2023. Negative for acute pneumonic process or CHF.
== END 2023-12-29 14:28 | disposition home or self-care (01) ==
LOC: ED 11:25
DX: I13.0 Hypertensive heart and chronic kidney disease with heart failure and stage 1 through stage 4 chronic kidney disease, or unspecified chronic kidney disease (principal); I50.42 Chronic combined systolic (congestive) and diastolic (congestive) heart failure; M79.89 Other specified soft tissue disorders; N18.9 Chronic kidney disease, unspecified; Z79.899 Other long term (current) drug therapy
CPT/HCPCS: 36415; 71045; 80053; 83735; 83880; 85025; 93005; 99284

== ENCOUNTER 2024-04-18 13:01 | Emergency (ER) | payer MEDICARE, OTHER ==
[2024-04-18 13:21] VITALS: TEMP 96.4
[2024-04-18] MEDS ORDERED: Zofran 4 MG/2 ML VIAL ONE (13:22)
[2024-04-18] MEDS ORDERED: MORPHINE SULFATE 2 MG INJ ONE (13:23)
[2024-04-18] MEDS: MORPHINE SULFATE 2 MG INJ IV ONE (13:24)
[2024-04-18] MEDS: Zofran 4 MG/2 ML VIAL IV ONE (13:24)
[2024-04-18 13:38] LABS: Absolute Neutrophil Ct (ANC) 4.64 x10^3/uL (1.78-5.38); BASOPHIL % 0.4 % (0.2-1.2); Basophil (Absolute #) 0.03 x10^3/uL (0.01-0.08); Eosinophil % 2.1 % (0.8-7.0); Eosinophil (Absolute #) 0.14 x10^3/uL (0.04-0.54); Hematocrit 36.5 % (40.1-51.0); Hemoglobin 11.7 g/dL (13.7-17.5); IMMATURE GRAN # 0.02 x10^3u/L (0.001-0.031); IMMATURE GRAN % 0.3 % (0.001-0.429); Lymphocyte (Absolute #) 1.37 x10^3/uL (1.32-3.57); Lymphocytes % 20.2 % (21.8-53.1); Mean Cell Volume 95.8 fL (79.0-92.2); Mean Corpuscular Hemoglobin 30.7 pg (25.7-32.2); Mean Corpuscular Hgb Concent. 32.1 g/dL (32.3-36.5); Mean Platelet Volume 10.3 fL (9.4-12.4); Monocyte (Absolute #) 0.58 x10^3/uL (0.30-0.82); Monocytes % 8.6 % (5.3-12.2); Neutrophil % 68.4 % (34.0-67.9); Platelet Count 191 x10^3/uL (163-337); Red Blood Count 3.81 x10^6/uL (4.63-6.08); Red Cell Distribution Width 14.3 % (11.6-14.4); White Blood Count 6.8 x10^3/uL (4.23-9.07)
[2024-04-18 13:50] LABS: ANION GAP 14.4 MEQ/L (5-15); BILIRUBIN,TOTAL 0.4 mg/dL (0.2-1.3); Calcium 9.3 mg/dL (8.4-10.2); Creatinine 1 0.78 mg/dL (0.66-1.25); EST GLOMERULAR FILTRATION RATE 87.4 ML/MIN; Potassium 4.4 mmol/L (3.5-5.1); Total Protein 7.6 g/dL (6.3-8.2)
[2024-04-18 14:01] LABS: Appearance Clear (Clear); Bacteria None Seen /HPF (None Seen); Bilirubin Negative (Negative); Blood Negative (Negative); Epithelial Cells None Seen /HPF (None Seen); Glucose, Urine Negative (Negative); Ketones Negative (Negative); Leukocyte Esterase Large (Negative); Nitrite Negative (Negative); Protein,Urine Dip Negative (Negative); RBC 0-2 /HPF (0-5); Urobilinogen 0.2 mg/dL (0.2); WBC 21-50 /HPF (0-5)
[2024-04-18 14:02] LABS: ADD URINE CULTURE? YES (NO)
[2024-04-18 14:13] LABS: INR 1.02 (0.8-3.0); PROTIME 11.1 SECONDS (9.4-12.5); PTT 29.9 SECONDS (25.1-36.5)
[2024-04-18] MEDS ORDERED: ROCEPHIN 2 GM/100 ML NACL 2 GM/100 ML IVPB IV ONE (14:29)
[2024-04-18] MEDS: ROCEPHIN 2 GM/100 ML NACL 2 GM/100 ML IVPB IV ONE (14:31)
[2024-04-18] MEDS: MORPHINE SULFATE 4 MG INJ IV ONE (14:32)
[2024-04-18] MEDS ORDERED: MORPHINE SULFATE 4 MG INJ ONE (14:32)
--- NOTE | 2024-04-18 14:38 | ERPHSYRPT ---
- History of Present Illness Time Seen by Provider: 04/18/24 13:02 Historian: patient, EMS, prison records Exam Limitations: no limitations Patient Subjective Stated Complaint: Pt had fallen a couple of times today at the prison per EMS and he complains of left rib pain Triage Nursing Assessment: Pt brought to the ER by EMS, hypertensive, rates pain as 10/10, pain to the lower left ribs and pain with palpatation, no bruising noted, guarding ribs, pulses normal, skin pale/dry/cool Physician History: 84-year-old male with history of congestive heart failure, migraines, resident of prison is brought in the ER by EMS after he had couple falls today where he hit the left lower rib/upper abdomen against the edge of the bed. Patient is complaining of moderate to severe sharp pain with palpation, deep breathing and movements. No difficulty breathing otherwise. No nausea or vomiting. Did not hit his head. No loss of consciousness. Denies any constipation or diarrhea but does report having some dysuria and flank pain at times. No fever or chills reported. Aspirin Treatment Today: no aspirin today Allergies/Adverse Reactions: aspirin Allergy (Verified 04/18/24 13:21) Home Medications: Acetaminophen 325 mg [Tylenol 325 mg] 650 mg PO Q4H 01/05/22 [History] Butalb/Acetaminophen/Caffeine [Esgic 50-325-40 mg Tablet] 1 tab PO TID PRN 11/10/22 [History] Glycerin/Propylene Glycol [Artificial Tears Drops] 2 drops OP QID PRN PRN 11/10/22 [History] Potassium Chloride 20 meq PO TID 11/10/22 [History] Acetaminophen 500 mg [Tylenol Extra Strength 500 mg] 500 mg PO TID 04/18/24 [History] Atorvastatin Calcium 40 mg PO DAILY 04/18/24 [History] Clopidogrel Bisulfate [Clopidogrel] 75 mg PO DAILY 04/18/24 [History] Furosemide 20 mg [Lasix 20 mg] 20 mg PO DAILY 04/18/24 [History] Ibuprofen 200 mg [Motrin 200 mg] 200 mg PO QIDP PRN 04/18/24 [History] risperiDONE [Risperdal] 0.5 mg PO DAILY 04/18/24 [History] Hx Tetanus, Diphtheria Vaccination/Date Given: No Hx Influenza Vaccination/Date Given: No Hx Pneumococcal Vaccination/Date Given: No Travel Risk - International Travel Have you traveled outside of the country in past 3 weeks: No - Emerging Infectious Disease Are you exhibiting symptoms associated with any current EIDs: No - Review of Systems Constitutional: No Symptoms Ears, Nose, & Throat: No Symptoms Respiratory: No Symptoms Cardiac: Chest Pain Abdominal/Gastrointestinal: No Symptoms Genitourinary Symptoms: Dysuria Musculoskeletal: Injury Skin: No Symptoms Neurological: No Symptoms Endocrine: No Symptoms Hematologic/Lymphatic: No Symptoms - Past Medical History Pertinent Past Medical History: Yes (Questionable histori) Neurological History: Dementia, Stroke ENT History: No Pertinent History Cardiac History: No Pertinent History Respiratory History: COPD Endocrine Medical History: No Pertinent History Musculoskeletal History: No Pertinent History GI Medical History: No Pertinent History History: No Pertinent History Psycho-Social History: No Pertinent History Male Reproductive Disorders: No Pertinent History Other Medical History: blood clots in lungs, pt is poor historian, does not know - Past Surgical History Past Surgical History: No (unknown) Neuro Surgical History: No Pertinent History Cardiac: No Pertinent History Respiratory: No Pertinent History Gastrointestinal: Appendectomy Genitourinary: No Pertinent History Musculoskeletal: No Pertinent History Male Surgical History: No Pertinent History Other Surgical History: no paper work sent from prison. unsure of surgical history - Social History Smoking Status: Former smoker Exposure to second hand smoke: No Drug Use: none Patient Lives Alone: No - Social Determinants of Health Will the patient participate in the screening: Declined to provide - Nursing Vital Signs Nursing Vital Signs: Initial Vital Signs Temperature 96.4 F 04/18/24 13:02 Pulse Rate 66 04/18/24 13:02 Respiratory Rate 18 04/18/24 13:02 Blood Pressure 149/79 04/18/24 13:02 O2 Sat by Pulse Oximetry 98 04/18/24 13:02 Pain Scale Pain Intensity 8 - Physical Exam General Appearance: no apparent distress, alert Eye Exam: PERRL/EOMI Ears, Nose, Throat Exam: normal ENT inspection Neck Exam: normal inspection, full range of motion Respiratory Exam: normal breath sounds, chest tenderness (Left lower chest wall/left upper quadrant. No crepitus. No bruising), lungs clear Cardiovascular Exam: regular rate/rhythm, normal heart sounds Gastrointestinal/Abdomen Exam: soft, normal bowel sounds, tenderness (Left upper quadrant), guarding Extremity Exam: normal inspection Neurologic Exam: alert, 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, cooperative Skin Exam: normal color SpO2 Interpretation: normal SpO2: 98 O2 Delivery: Room Air - Course EKG Interpreted by Me: RATE (66), Sinus Rhythm, NORMAL AXIS, Q-wave Ordered Tests: Medication Summary Discontinued Medications Generic Name Dose Route Start Last Admin Trade Name Misa PRN Reason Stop Dose Admin Acetaminophen 1,000 mg 04/18/24 17:38 04/18/24 17:44 Acetaminophen 500 Mg Tablet PO 04/18/24 17:39 1,000 mg STAT STA Administration Acetaminophen Confirm 04/18/24 17:44 Acetaminophen 500 Mg Tablet Administered 04/18/24 17:45 Dose 1,000 mg .ROUTE .STK-MED ONE Diphenhydramine HCl Confirm 04/18/24 15:09 Diphenhydramine Hcl 50 Mg/Ml Vial Administered 04/18/24 15:10 Dose 50 mg .ROUTE .STK-MED ONE Diphenhydramine HCl 25 mg 04/18/24 15:11 04/18/24 15:13 Diphenhydramine Hcl 50 Mg/Ml Vial IV 04/18/24 15:12 25 mg STAT ONE Administration Ceftriaxone Sodium 2 gm in 100 mls @ 200 mls/hr 04/18/24 14:28 04/18/24 15:01 Rocephin 2 Gm/100 Ml Nacl IV 04/18/24 14:57 Infused STAT ONE Infusion Ceftriaxone Sodium Confirm 04/18/24 14:29 Rocephin 2 Gm/100 Ml Nacl Administered 04/18/24 14:30 Dose 2 gm in 100 mls @ ud IV .STK-MED ONE Sodium Chloride 1,000 mls @ 100 mls/hr 04/18/24 16:30 04/18/24 16:25 Sodium Chloride 0.9% 1000 Ml IV 05/18/24 16:29 100 mls/hr .Q10H BLAIRE Administration Sodium Chloride Confirm 04/18/24 16:23 Sodium Chloride 0.9% 1000 Ml Administered 04/18/24 16:24 Dose 1,000 mls @ ud .ROUTE .STK-MED ONE Morphine Sulfate 2 mg 04/18/24 13:21 04/18/24 13:24 Morphine Sulfate 2 Mg/Ml Inj IV 04/18/24 13:22 2 mg STAT ONE Administration Morphine Sulfate Confirm 04/18/24 13:23 Morphine Sulfate 2 Mg/Ml Inj Administered 04/18/24 13:24 Dose 2 mg .ROUTE .STK-MED ONE Morphine Sulfate 4 mg 04/18/24 14:31 04/18/24 14:32 Morphine Sulfate 4 Mg/Ml Injection IV 04/18/24 14:32 4 mg STAT ONE Administration Morphine Sulfate Confirm 04/18/24 14:32 Morphine Sulfate 4 Mg/Ml Injection Administered 04/18/24 14:33 Dose 4 mg .ROUTE .STK-MED ONE Ondansetron HCl 4 mg 04/18/24 13:21 04/18/24 13:24 Ondansetron Hcl 4 Mg/2 Ml Vial IV 04/18/24 13:22 4 mg STAT ONE Administration Ondansetron HCl Confirm 04/18/24 13:22 Ondansetron Hcl 4 Mg/2 Ml Vial Administered 04/18/24 13:23 Dose 4 mg .ROUTE .STK-MED ONE Tamsulosin HCl 0.4 mg 04/18/24 17:14 04/18/24 17:17 Tamsulosin Hcl 0.4 Mg Cap PO 04/18/24 17:15 0.4 mg ONCE STA Administration Tamsulosin HCl Confirm 04/18/24 17:16 Tamsulosin Hcl 0.4 Mg Cap Administered 04/18/24 17:17 Dose 0.4 mg .ROUTE .STK-MED ONE Lab/Rad Data: Laboratory Result Diagrams 04/18/24 13:00 04/18/24 13:00 Laboratory Results 04/18/24 04/18/24 04/18/24 Range/Units 21:32 16:40 13:49 WBC (4.23-9.07) x10^3/uL RBC (4.63-6.08) x10^6/uL Hgb (13.7-17.5) g/dL Hct (40.1-51.0) % MCV (79.0-92.2) fL MCH (25.7-32.2) pg MCHC (32.3-36.5) g/dL RDW (11.6-14.4) % Plt Count (163-337) x10^3/uL MPV (9.4-12.4) fL Gran % (34.0-67.9) % Immature Gran % (Auto) (0.001-0.429) % Nucleat RBC Rel Count (0.00-0.2) % Eos # (Auto) (0.04-0.54) x10^3/uL Immature Gran # (Auto) (0.001-0.031) x10^3u/L Absolute Lymphs (auto) (1.32-3.57) x10^3/uL Absolute Monos (auto) (0.30-0.82) x10^3/uL Absolute Nucleated RBC (0.00-0.012) x10^3u/L Lymphocytes % (21.8-53.1) % Monocytes % (5.3-12.2) % Eosinophils % (0.8-7.0) % Basophils % (0.2-1.2) % Absolute Granulocytes (1.78-5.38) x10^3/uL Basophils # (0.01-0.08) x10^3/uL PT (9.4-12.5) SECONDS INR (0.8-3.0) APTT (25.1-36.5) SECONDS Sodium (135-145) mmol/L Potassium (3.5-5.1) mmol/L Chloride (98-107) mmol/L Carbon Dioxide (22-30) mmol/L Anion Gap (5-15) MEQ/L BUN (9-20) mg/dL Creatinine (0.66-1.25) mg/dL Estimated GFR ML/MIN Glucose (74-106) mg/dL Calcium (8.4-10.2) mg/dL Total Bilirubin (0.2-1.3) mg/dL AST (17-59) U/L ALT (0-50) U/L Alkaline Phosphatase (38-126) U/L Troponin I 0.026 0.025 (0.000-0.033) ng/mL NT-Pro-B Natriuret Pep (<300) pg/mL Serum Total Protein (6.3-8.2) g/dL Albumin (3.5-5.0) g/dL Lipase (23-300) U/L Urine Color Yellow (Yellow) Urine Appearance Clear (Clear) Urine pH 5.0 (4.6-8.0) Ur Specific [place] 1.010 (1.005-1.030) Urine Protein Negative (Negative) Urine Glucose (UA) Negative (Negative) mg/dL Urine Ketones Negative (Negative) Urine Blood Negative (Negative) Urine Nitrite Negative (Negative) Urine Bilirubin Negative (Negative) Urine Urobilinogen 0.2 (0.2) mg/dL Ur Leukocyte Esterase Large A (Negative) U Hyaline Cast (Auto) 3-5 A (0-2) /LPF Urine Microscopic RBC 0-2 (0-5) /HPF Urine Microscopic WBC 21-50 A (0-5) /HPF Ur Epithelial Cells None Seen (None Seen) /HPF Urine Bacteria None Seen (None Seen) /HPF Urine Culture Reflexed YES (NO) 04/18/24 04/18/24 04/18/24 Range/Units 13:00 13:00 13:00 WBC (4.23-9.07) x10^3/uL RBC (4.63-6.08) x10^6/uL Hgb (13.7-17.5) g/dL Hct (40.1-51.0) % MCV (79.0-92.2) fL MCH (25.7-32.2) pg MCHC (32.3-36.5) g/dL RDW (11.6-14.4) % Plt Count (163-337) x10^3/uL MPV (9.4-12.4) fL Gran % (34.0-67.9) % Immature Gran % (Auto) (0.001-0.429) % Nucleat RBC Rel Count (0.00-0.2) % Eos # (Auto) (0.04-0.54) x10^3/uL Immature Gran # (Auto) (0.001-0.031) x10^3u/L Absolute Lymphs (auto) (1.32-3.57) x10^3/uL Absolute Monos (auto) (0.30-0.82) x10^3/uL Absolute Nucleated RBC (0.00-0.012) x10^3u/L Lymphocytes % (21.8-53.1) % Monocytes % (5.3-12.2) % Eosinophils % (0.8-7.0) % Basophils % (0.2-1.2) % Absolute Granulocytes (1.78-5.38) x10^3/uL Basophils # (0.01-0.08) x10^3/uL PT (9.4-12.5) SECONDS INR (0.8-3.0) APTT (25.1-36.5) SECONDS Sodium (135-145) mmol/L Potassium (3.5-5.1) mmol/L Chloride (98-107) mmol/L Carbon Dioxide (22-30) mmol/L Anion Gap (5-15) MEQ/L BUN (9-20) mg/dL Creatinine (0.66-1.25) mg/dL Estimated GFR ML/MIN Glucose (74-106) mg/dL Calcium (8.4-10.2) mg/dL Total Bilirubin (0.2-1.3) mg/dL AST (17-59) U/L ALT (0-50) U/L Alkaline Phosphatase (38-126) U/L Troponin I 0.020 (0.000-0.033) ng/mL NT-Pro-B Natriuret Pep 1060 (<300) pg/mL Serum Total Protein (6.3-8.2) g/dL Albumin (3.5-5.0) g/dL Lipase 258 (23-300) U/L Urine Color (Yellow) Urine Appearance (Clear) Urine pH (4.6-8.0) Ur Specific [place] (1.005-1.030) Urine Protein (Negative) Urine Glucose (UA) (Negative) mg/dL Urine Ketones (Negative) Urine Blood (Negative) Urine Nitrite (Negative) Urine Bilirubin (Negative) Urine Urobilinogen (0.2) mg/dL Ur Leukocyte Esterase (Negative) U Hyaline Cast (Auto) (0-2) /LPF Urine Microscopic RBC (0-5) /HPF Urine Microscopic WBC (0-5) /HPF Ur Epithelial Cells (None Seen) /HPF Urine Bacteria (None Seen) /HPF Urine Culture Reflexed (NO) 04/18/24 04/18/24 04/18/24 Range/Units 13:00 13:00 13:00 WBC 6.8 (4.23-9.07) x10^3/uL RBC 3.81 L (4.63-6.08) x10^6/uL Hgb 11.7 L (13.7-17.5) g/dL Hct 36.5 L (40.1-51.0) % MCV 95.8 H (79.0-92.2) fL MCH 30.7 (25.7-32.2) pg MCHC 32.1 L (32.3-36.5) g/dL RDW 14.3 (11.6-14.4) % Plt Count 191 (163-337) x10^3/uL MPV 10.3 (9.4-12.4) fL Gran % 68.4 H (34.0-67.9) % Immature Gran % (Auto) 0.3 (0.001-0.429) % Nucleat RBC Rel Count 0.0 (0.00-0.2) % Eos # (Auto) 0.14 (0.04-0.54) x10^3/uL Immature Gran # (Auto) 0.02 (0.001-0.031) x10^3u/L Absolute Lymphs (auto) 1.37 (1.32-3.57) x10^3/uL Absolute Monos (auto) 0.58 (0.30-0.82) x10^3/uL Absolute Nucleated RBC 0.00 (0.00-0.012) x10^3u/L Lymphocytes % 20.2 L (21.8-53.1) % Monocytes % 8.6 (5.3-12.2) % Eosinophils % 2.1 (0.8-7.0) % Basophils % 0.4 (0.2-1.2) % Absolute Granulocytes 4.64 (1.78-5.38) x10^3/uL Basophils # 0.03 (0.01-0.08) x10^3/uL PT 11.1 (9.4-12.5) SECONDS INR 1.02 (0.8-3.0) APTT 29.9 (25.1-36.5) SECONDS Sodium 139 (135-145) mmol/L Potassium 4.4 (3.5-5.1) mmol/L Chloride 103 (98-107) mmol/L Carbon Dioxide 25 (22-30) mmol/L Anion Gap 14.4 (5-15) MEQ/L BUN 12 (9-20) mg/dL Creatinine 0.78 (0.66-1.25) mg/dL Estimated GFR 87.4 ML/MIN Glucose 126 H (74-106) mg/dL Calcium 9.3 (8.4-10.2) mg/dL Total Bilirubin 0.40 (0.2-1.3) mg/dL AST 26 (17-59) U/L ALT 18 (0-50) U/L Alkaline Phosphatase 45 (38-126) U/L Troponin I (0.000-0.033) ng/mL NT-Pro-B Natriuret Pep (<300) pg/mL Serum Total Protein 7.6 (6.3-8.2) g/dL Albumin 4.0 (3.5-5.0) g/dL Lipase (23-300) U/L Urine Color (Yellow) Urine Appearance (Clear) Urine pH (4.6-8.0) Ur Specific [place] (1.005-1.030) Urine Protein (Negative) Urine Glucose (UA) (Negative) mg/dL Urine Ketones (Negative) Urine Blood (Negative) Urine Nitrite (Negative) Urine Bilirubin (Negative) Urine Urobilinogen (0.2) mg/dL Ur Leukocyte Esterase (Negative) U Hyaline Cast (Auto) (0-2) /LPF Urine Microscopic RBC (0-5) /HPF Urine Microscopic WBC (0-5) /HPF Ur Epithelial Cells (None Seen) /HPF Urine Bacteria (None Seen) /HPF Urine Culture Reflexed (NO) - Progress Progress: improved Air Movement: fair Progress Note: 04/18/24 17:58 84-year-old resident of prison is evaluated in the ER for repeated falls with injury to left lower chest wall and upper abdomen. Having some UTI symptoms as well. He is given symptomatic treatment for pain, reevaluation his pain is better but not completely resolved. Workup showed normal white count, fairly unremarkable chemistries, does have UTI and given a dose of Rocephin which patient has received more than half and started to have some itching, was stopped and given Benadryl. Patient CT chest showed no rib fracture, pneumothorax but does have interval increase in the size of pulm right upper lung mass when compared from previous study. Also has mediastinal lymphadenopathy. Patient has gallstones but no cholecystitis. Has 5 mm right distal ureteral stone with partial obstruction. I have shared the results of workup with patient and recommended transfer to facility with urology services because of her having obstructive uropathy and UTI, given a dose of Flomax and he agreed with the plan. No urology services are available here at [facility]. I have called [facility] but no urology services available. Discussed with Dr. Quintanilla urology [facility], reviewed history, workup and agreed with transfer to hospitalist service and urology would be the consult. I have discussed with Dr. Macdonald, reviewed history, workup and patient is being transferred. Blood Culture(s) Obtained: No Antibiotics given: Yes Discussed with Dr.: Other (Dr. Macdonald hospitalist Dearadha Adams and Dr. 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 Quintanilla urology. Dr. Macdonald hospitalist) Reviewed:: Test results Agreed on:: Treatment plan Will see patient: in hospital - Diagnostic Testing Diagnostic test were ordered, analyzed, and reviewed by me: Yes Radiological Interpretation: Reviewed by me, Teleradiologist Report - Risk of complications The pt has a mod risk of morbidity or mortality based on: Need for prescription drug management The pt has a high risk of morbidity or mortality based on: Decision regarding hospitilization or escalation of hosp level of care - Departure Departure Disposition: Transfer Clinical Impression: Lung mass, Mediastinal lymphadenopathy, Obstructive uropathy, UTI (urinary tract infection), Cholelithiasis Condition: Stable Critical Care Time: No Referrals: ENVIVE,ENVIVE [Primary Care Provider] - Follow up/PCP as directed
[2024-04-18] MEDS ORDERED: BENADRYL 50 MG/ML ONE (15:09)
[2024-04-18] MEDS: BENADRYL 50 MG/ML IV ONE (15:13)
--- NOTE | 2024-04-18 15:33 | XRAY ---
CLINICAL HISTORY: LUQ abd. pain COMPARISON: 12/01/2019. TECHNIQUE: Non-contrast CT of the abdomen and pelvis was performed, with the following protocol: axial images, and reconstructed coronal and sagittal images. One of the following dose reduction techniques was utilized for this exam: Automated exposure control, adjustment of the mA and/or kV according to patient size, and use of iterative reconstruction. FINDINGS: Abdomen: Liver: Normal in size, shape, and density. No focal lesions, cysts, or masses were identified. Gallbladder and Biliary System: The gallbladder is normally distended show dense small gravity dependent level of tiny calculi. No wall thickening, pericholecystic fluid, or gallstones were identified. Pancreas: Pancreatic head, body, and tail are visualized and appear normal in size and density. No pancreatic masses or calcifications were noted. Spleen: Normal in size, shape, and density. No splenic lesions or masses were identified. Kidneys and Adrenal Glands: The right kidney is normal in size show no renal stones, however mild hydronephrosis and hydroureter down to distal ureter due to small ureteric calculi measuring 5 mm, of the density 240 HU. The left kidney is normal in size, shape, and position. Cortical thickness is within normal limits. No renal calculi or hydronephrosis. Adrenal glands are unremarkable. Abdominal Aorta and Vessels: The abdominal aorta and major branches are patent without evidence of an aneurysm howwever diffuse atherosclerosis. Pelvis: Urinary Bladder: Normal in contour and wall thickness. No intraluminal lesions. Prostate: enlarged in size indenting the base of urinary bladder. Seminal Vesicles: Normal appearance without abnormal enlargement or mass. Peritoneal and Retroperitoneal Structures: No free fluid or abnormal fluid collections were identified within the abdomen or pelvis. No lymphadenopathy was noted. Bowel: The visualized bowel loops are normal in caliber and appearance. No evidence of bowel obstruction or wall thickening. Small left inguinal hernia contains fat only. Unremarkable appendix. Bones and Soft Tissues: Pelvic bones and soft tissues are unremarkable. No fractures or abnormal masses were identified. Lung bases show calcified right lower lobe nodule. IMPRESSION: 1. Multiple tiny gall bladder calculi, no evidence of cholecystitis. 2. Right distal 5mm ureteric calculus causing mild obstruction, near right uvj. 3. These are new findings compared to last scan. 4. Prostatemegaly, for further evaluation, and left fat containing small inguinal hernia, not changed. Electronically Signed by: Regulo Sanderson MD. (04/18/2024 15:29:54 EDT)
--- NOTE | 2024-04-18 16:05 | XRAY ---
CLINICAL HISTORY: Left chest wall pain COMPARISON: 04/08/2024 and 04/05/2023 TECHNIQUE: Contiguous 3.[address] images of the chest were acquired without intravenous contrast.Coronal and sagittal reconstructions were obtained. One of the following dose reduction techniques were utilized for this exam: Automated exposure control, adjustment of the mA and/or kV according to patient size, use of iterative reconstruction FINDINGS: Increase the size of the solid component of the previously seen cavitating mass in the apical and posterior segment of the right upper lobe measuring about 45x42 mm compared to [id number] in 04/08/1024 and compared to 21x17 mm in 04/05/2023 . It showed central cavitation with a spiculated outline. The adjacent more anterior and medial nodule also increased in size measures 11mm versus 7mm. The mass and nodule appeared in close proximity to the right hilar LN. Stable left upper lobe nodule measured 3mm. A small calcified granuloma is seen in the posterior basal segment of the right lower lobe measuring 7mm. Background paraseptal emphysema with some ground glassing and interstitial thickening are seen in both lower lobes posteriorly basal atelectasis. The rest of the scanned pulmonary parenchyma appears normal. Increase the size of the previously seen small hilar and mediastinal lymph nodes , the largest measuring about 11 mm versus 9mm in the right pretracheal region Mild right-sided pleural thickening is noted. No vianney effusions. Heart size is normal, and there is no pericardial effusion. The scanned upper abdomen is unremarkable showed small GB stone. Degenerative changes are seen in the spines. No obvious lytic or sclerotic deposit. Severe degenerative changes of the shoulders more in the right side. IMPRESSION: 1. Slight interval increase the size of a solid component of the mass in the right upper lobe with interval increase size of the mediastinal and hilar LNs compared to previous exams. For clinical and pathological correlation. 2. Rest of the findings as detailed. Electronically Signed by: Regulo Sanderson MD. (04/18/2024 16:01:37 EDT)
[2024-04-18] MEDS ORDERED: Sodium Chloride 0.9% 1000 ML 1,000 ML ONE (16:23)
[2024-04-18] MEDS: Sodium Chloride 0.9% 1000 ML 1,000 ML IV SCH (16:25)
[2024-04-18] MEDS ORDERED: Flomax 0.4 MG ONE (17:16)
[2024-04-18] MEDS: Flomax 0.4 MG PO STA (17:17)
[2024-04-18] MEDS: TYLENOL EXTRA STRENGTH 500 MG PO STA (17:44)
[2024-04-18] MEDS ORDERED: TYLENOL EXTRA STRENGTH 500 MG ONE (17:44)
[2024-04-18 22:05] VITALS: BP 132/72; PULSE 70; RESP 16; O2SAT 98
== END 2024-04-18 22:15 | disposition short-term general hospital (02) ==
LOC: ED 13:01
DX: R91.8 Other nonspecific abnormal finding of lung field (principal); R59.0 Localized enlarged lymph nodes; N13.9 Obstructive and reflux uropathy, unspecified; N39.0 Urinary tract infection, site not specified; K80.20 Calculus of gallbladder without cholecystitis without obstruction; R10.9 Unspecified abdominal pain; Z79.02 Long term (current) use of antithrombotics/antiplatelets; Z79.899 Other long term (current) drug therapy
CPT/HCPCS: 36000; 36415; 71250; 74176; 80053; 81001; 83690; 83880; 84484; 85025; 85610; 85730; 87077; 87086; 87186; 93005; 93041; 96365; 96374; 96375; 96376; 99285; J0696; J1200; J2270; J2405; A9270-GY

== ENCOUNTER 2024-06-02 12:14 | Observation (INO) | payer MEDICARE, OTHER ==
[2024-06-02 12:47] LABS: Absolute Neutrophil Ct (ANC) 5.98 x10^3/uL (1.78-5.38); BASOPHIL % 0.4 % (0.2-1.2); Basophil (Absolute #) 0.03 x10^3/uL (0.01-0.08); Eosinophil % 0.9 % (0.8-7.0); Eosinophil (Absolute #) 0.07 x10^3/uL (0.04-0.54); Hematocrit 34.1 % (40.1-51.0); IMMATURE GRAN # 0.02 x10^3u/L (0.001-0.031); IMMATURE GRAN % 0.3 % (0.001-0.429); Lymphocyte (Absolute #) 1.27 x10^3/uL (1.32-3.57); Lymphocytes % 15.9 % (21.8-53.1); Mean Cell Volume 93.9 fL (79.0-92.2); Mean Corpuscular Hemoglobin 30.3 pg (25.7-32.2); Mean Corpuscular Hgb Concent. 32.3 g/dL (32.3-36.5); Mean Platelet Volume 10.3 fL (9.4-12.4); Monocytes % 7.5 % (5.3-12.2); Platelet Count 203 x10^3/uL (163-337); Red Blood Count 3.63 x10^6/uL (4.63-6.08); Red Cell Distribution Width 14.6 % (11.6-14.4)
[2024-06-02] MEDS ORDERED: Zofran 4 MG/2 ML VIAL ONE (12:53)
[2024-06-02] MEDS: Zofran 4 MG/2 ML VIAL IV ONE (12:54)
[2024-06-02 13:01] LABS: ALBUMIN 4.1 g/dL (3.5-5.0); BILIRUBIN,TOTAL 0.5 mg/dL (0.2-1.3); Calcium 9.6 mg/dL (8.4-10.2); Creatinine 1 1.3 mg/dL (0.66-1.25); EST GLOMERULAR FILTRATION RATE 53.8 ML/MIN; Total Protein 7.7 g/dL (6.3-8.2)
[2024-06-02 13:10] LABS: Potassium 2.8 mmol/L (3.5-5.1)
[2024-06-02] MEDS: Sodium Chloride 0.9% 1000 ML 1,000 ML IV SCH (13:19)
[2024-06-02] MEDS ORDERED: K-LYTE ONE (13:20)
[2024-06-02] MEDS ORDERED: Lactated Ringers 1,000 ML IV ONE (13:21)
[2024-06-02] MEDS: Magnesium 1 Gm / 100 Ml D5W*** 100 ML IV SCH (13:25)
[2024-06-02] MEDS: K-LYTE PO ONE (13:25)
[2024-06-02] MEDS: Lactated Ringers 1,000 ML IV SCH (13:25)
[2024-06-02] MEDS: POTASSIUM CHLORIDE 20 mEq IN WATER 100ML 20 MEQ/100 ML BAG IV SCH (13:25)
--- NOTE | 2024-06-02 13:55 | ERPHSYRPT ---
- History of Present Illness Time Seen by Provider: 06/02/24 12:30 Source: patient Exam Limitations: no limitations Patient Subjective Stated Complaint: pt c/o od diarrhea for about 5 days and vomiting since this morning Triage Nursing Assessment: Pt brought to the ER by EMS, vitals wnl, rates pain as 04/28, pt had a lung biopsy a couple of days ago, pt c/o of diarrhea and vomiting and an un-open sore on his right hip, pulses normal, skin n/w/d, no difficulty breathing, began vomiting this morning, diarrhea for the past 4-5 days, denies blood in stool Physician History: 84-year-old male history of stroke dementia COPD, lung cancer, lung biopsy 2 days ago presents to our ED for evaluation of diarrhea x 5 days vomiting x 1 day. Vomit/diarrhea is nonbloody nonbilious. Patient reports that he feels weak. No falls no injury no trauma. No associated chest pain or shortness of breath. Symptoms are mild to moderate in intensity. No specific worsening or improving factors. Patient denies abdominal pain. He otherwise feels well. Patient voices no other complaints or concerns at this time. Portions of this note were created with voice recognition technology. There may be grammatical, spelling, punctuation or sound alike errors Timing/Duration: day(s) Severity: moderate (5 days) Modifying Factors: Improves With: nothing Associated Symptoms: denies symptoms Allergies/Adverse Reactions: aspirin Allergy (Verified 06/02/24 12:37) Home Medications: Acetaminophen 325 mg [Tylenol 325 mg] 650 mg PO Q4H 01/05/22 [History] Butalb/Acetaminophen/Caffeine [Esgic 50-325-40 mg Tablet] 1 tab PO TID PRN 11/10/22 [History] Glycerin/Propylene Glycol [Artificial Tears Drops] 2 drops OP QID PRN PRN 11/10/22 [History] Potassium Chloride 20 meq PO TID 11/10/22 [History] Atorvastatin Calcium 40 mg PO DAILY 04/18/24 [History] Clopidogrel Bisulfate [Clopidogrel] 75 mg PO DAILY 04/18/24 [History] Furosemide 20 mg [Lasix 20 mg] 20 mg PO DAILY 04/18/24 [History] Ibuprofen 200 mg [Motrin 200 mg] 600 mg PO TID 04/18/24 [History] risperiDONE [Risperdal] 0.5 mg PO DAILY 04/18/24 [History] Ondansetron ODT 4 MG [Zofran Odt 4 mg] 4 mg PO Q6H PRN PRN 06/02/24 [History] Sertraline HCl 100 mg PO DAILY 06/02/24 [History] Hx Tetanus, Diphtheria Vaccination/Date Given: No Hx Influenza Vaccination/Date Given: No Hx Pneumococcal Vaccination/Date Given: No Travel Risk - International Travel Have you traveled outside of the country in past 3 weeks: No - Emerging Infectious Disease Are you exhibiting symptoms associated with any current EIDs: Yes Symptoms: Abdominal Pain - Review of Systems Constitutional: No Symptoms, No Fever, No Chills Eyes: No Symptoms Ears, Nose, & Throat: No Symptoms Respiratory: No Symptoms, No Cough, No Dyspnea Cardiac: No Symptoms, No Chest Pain, No Edema, No Syncope Abdominal/Gastrointestinal: No Symptoms, No Abdominal Pain, No Nausea, No Vomiting, No Diarrhea Genitourinary Symptoms: No Symptoms, No Dysuria Musculoskeletal: No Symptoms, No Back Pain, No Neck Pain Skin: No Symptoms, No Rash Neurological: No Symptoms, No Dizziness, No Focal Weakness, No Sensory Changes Psychological: No Symptoms Endocrine: No Symptoms Hematologic/Lymphatic: No Symptoms Immunological/Allergic: No Symptoms All Other Systems: Reviewed and Negative - Past Medical History Pertinent Past Medical History: Yes (Questionable histori) Neurological History: Dementia, Stroke ENT History: No Pertinent History Cardiac History: No Pertinent History Respiratory History: COPD Endocrine Medical History: No Pertinent History Musculoskeletal History: No Pertinent History GI Medical History: No Pertinent History History: No Pertinent History Psycho-Social History: No Pertinent History Male Reproductive Disorders: No Pertinent History Other Medical History: blood clots in lungs, pt is poor historian, does not know - Past Surgical History Past Surgical History: No (unknown) Neuro Surgical History: No Pertinent History Cardiac: No Pertinent History Respiratory: No Pertinent History Gastrointestinal: Appendectomy Genitourinary: No Pertinent History Musculoskeletal: No Pertinent History Male Surgical History: No Pertinent History Other Surgical History: lung biopsy - Social History Smoking Status: Former smoker Exposure to second hand smoke: No Drug Use: none Patient Lives Alone: No - Social Determinants of Health Will the patient participate in the screening: Yes Do you worry about a steady place to live?: No Do you have any problems with any of the following?: No known problems In the past 12 months,have you had to go without utilities?: No Transportation Issues: No Has anyone in your support network made you feel unsafe?: No Have you or anyone in your house had to go without enough: No - Nursing Vital Signs Nursing Vital Signs: Initial Vital Signs Temperature 97.1 F 06/02/24 12:24 Pulse Rate 71 06/02/24 12:24 Respiratory Rate 24 06/02/24 12:24 Blood Pressure 151/59 06/02/24 12:24 O2 Sat by Pulse Oximetry 97 06/02/24 12:24 Pain Scale Pain Intensity 6 - Physical Exam General Appearance: no apparent distress, alert Eye Exam: PERRL/EOMI, eyes nml inspection Ears, Nose, Throat Exam: normal ENT inspection, TMs normal, pharynx normal, moist mucous membranes Neck Exam: normal inspection, non-tender, supple, full range of motion Respiratory Exam: normal breath sounds, lungs clear, No respiratory distress Cardiovascular Exam: regular rate/rhythm, normal heart sounds, normal peripheral pulses Gastrointestinal/Abdomen Exam: soft, normal bowel sounds, No tenderness, No mass Back Exam: normal inspection, normal range of motion, No CVA tenderness, No vertebral tenderness Extremity Exam: normal inspection, normal range of motion, pelvis stable, other (Tender papular lesion right hip) Neurologic Exam: alert, 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, cooperative, normal mood/affect, nml cerebellar function, nml station & gait, sensation nml, No motor deficits Skin Exam: normal color, warm, dry, No rash Lymphatic Exam: No adenopathy SpO2 Interpretation: normal SpO2: 96 O2 Delivery: Room Air - Course Nursing assessment & vital signs reviewed: Yes Ordered Tests: Active Orders 24 hr Category Date Time Status EKG-ER Only STAT Care 06/02/24 14:03 Active IV Insertion STAT Care 06/02/24 12:26 Active Telemetry q4h Care 06/02/24 13:18 Active CBC W DIFF Stat Lab 06/02/24 12:40 Completed CMP Stat Lab 06/02/24 12:40 Completed LIPASE Stat Lab 06/02/24 12:40 Completed TROPONIN Q4H Lab 06/02/24 12:40 Completed TROPONIN Q4H Lab 06/02/24 14:44 Completed TROPONIN Q4H Lab 06/02/24 20:30 Ordered UA W/RFX UR CULTURE Stat Lab 06/02/24 12:26 Ordered Transfer Order Routine Transfer 06/02/24 Ordered Medication Summary Generic Name Dose Route Start Last Admin Trade Name Misa PRN Reason Stop Dose Admin Sodium Chloride 1,000 mls @ 100 mls/hr 06/02/24 12:30 06/02/24 13:19 Sodium Chloride 0.9% 1000 Ml IV 07/02/24 12:29 Not Given .Q10H BLAIRE Lactated Ringer's 1,000 mls @ 250 mls/hr 06/02/24 13:30 06/02/24 13:25 Lactated Ringers IV 07/02/24 13:29 250 mls/hr .Q4H BLAIRE Administration Magnesium Sulfate/Dextrose 100 mls @ 100 mls/hr 06/02/24 13:30 06/02/24 13:43 Magnesium 1 Gm / 100 Ml D5w IV 06/02/24 15:29 100 mls/hr Q1H BLAIRE Administration Potassium Chloride 20 meq in 100 mls @ 50 mls/hr 06/02/24 13:30 06/02/24 15:07 Potassium Chloride 20 Meq In Water 100ml IV 06/02/24 17:29 50 mls/hr Q2H BLAIRE Administration Discontinued Medications Generic Name Dose Route Start Last Admin Trade Name Misa PRN Reason Stop Dose Admin Diphenhydramine HCl 25 mg 06/02/24 15:02 06/02/24 15:05 Diphenhydramine Hcl 50 Mg/Ml Vial IV 06/02/24 15:03 25 mg STAT ONE Administration Diphenhydramine HCl Confirm 06/02/24 15:04 Diphenhydramine Hcl 50 Mg/Ml Vial Administered 06/02/24 15:05 Dose 50 mg .ROUTE .STK-MED ONE Lidocaine HCl 15 ml 06/02/24 14:01 06/02/24 14:03 Lidocaine Hcl 2% Viscous 15 Ml Udcup PO 06/02/24 14:02 15 ml STAT ONE Administration Lidocaine HCl Confirm 06/02/24 14:01 Lidocaine Hcl 2% Viscous 15 Ml Udcup Administered 06/02/24 14:02 Dose 15 ml .ROUTE .STK-MED ONE Ondansetron HCl 4 mg 06/02/24 12:27 06/02/24 12:54 Ondansetron Hcl 4 Mg/2 Ml Vial IV 06/02/24 12:28 4 mg STAT ONE Administration Ondansetron HCl Confirm 06/02/24 12:53 Ondansetron Hcl 4 Mg/2 Ml Vial Administered 06/02/24 12:54 Dose 4 mg .ROUTE .STK-MED ONE Potassium Bicarbonate 50 meq 06/02/24 13:18 06/02/24 13:25 Potassium Bicarbonate 25 Meq Tab PO 06/02/24 13:19 50 meq STAT ONE Administration Potassium Bicarbonate Confirm 06/02/24 13:20 Potassium Bicarbonate 25 Meq Tab Administered 06/02/24 13:21 Dose 50 meq .ROUTE .STK-MED ONE Lab/Rad Data: Laboratory Result Diagrams 06/02/24 12:40 06/02/24 12:40 Laboratory Results 06/02/24 06/02/24 06/02/24 Range/Units 14:44 12:40 12:40 WBC (4.23-9.07) x10^3/uL RBC (4.63-6.08) x10^6/uL Hgb (13.7-17.5) g/dL Hct (40.1-51.0) % MCV (79.0-92.2) fL MCH (25.7-32.2) pg MCHC (32.3-36.5) g/dL RDW (11.6-14.4) % Plt Count (163-337) x10^3/uL MPV (9.4-12.4) fL Gran % (34.0-67.9) % Immature Gran % (Auto) (0.001-0.429) % Nucleat RBC Rel Count (0.00-0.2) % Eos # (Auto) (0.04-0.54) x10^3/uL Immature Gran # (Auto) (0.001-0.031) x10^3u/L Absolute Lymphs (auto) (1.32-3.57) x10^3/uL Absolute Monos (auto) (0.30-0.82) x10^3/uL Absolute Nucleated RBC (0.00-0.012) x10^3u/L Lymphocytes % (21.8-53.1) % Monocytes % (5.3-12.2) % Eosinophils % (0.8-7.0) % Basophils % (0.2-1.2) % Absolute Granulocytes (1.78-5.38) x10^3/uL Basophils # (0.01-0.08) x10^3/uL Sodium 140 (135-145) mmol/L Potassium 2.8 L* (3.5-5.1) mmol/L Chloride 109 H (98-107) mmol/L Carbon Dioxide 15 L* (22-30) mmol/L Anion Gap 19.0 H (5-15) MEQ/L BUN 18 (9-20) mg/dL Creatinine 1.30 H (0.66-1.25) mg/dL Estimated GFR 53.8 ML/MIN Glucose 169 H (74-106) mg/dL Calcium 9.6 (8.4-10.2) mg/dL Total Bilirubin 0.50 (0.2-1.3) mg/dL AST 28 (17-59) U/L ALT 23 (0-50) U/L Alkaline Phosphatase 49 (38-126) U/L Troponin I 0.127 H* 0.117 H* (0.000-0.033) ng/mL Serum Total Protein 7.7 (6.3-8.2) g/dL Albumin 4.1 (3.5-5.0) g/dL Lipase 72 (23-300) U/L 06/02/24 Range/Units 12:40 WBC 8.0 (4.23-9.07) x10^3/uL RBC 3.63 L (4.63-6.08) x10^6/uL Hgb 11.0 L (13.7-17.5) g/dL Hct 34.1 L (40.1-51.0) % MCV 93.9 H (79.0-92.2) fL MCH 30.3 (25.7-32.2) pg MCHC 32.3 (32.3-36.5) g/dL RDW 14.6 H (11.6-14.4) % Plt Count 203 (163-337) x10^3/uL MPV 10.3 (9.4-12.4) fL Gran % 75.0 H (34.0-67.9) % Immature Gran % (Auto) 0.3 (0.001-0.429) % Nucleat RBC Rel Count 0.0 (0.00-0.2) % Eos # (Auto) 0.07 (0.04-0.54) x10^3/uL Immature Gran # (Auto) 0.02 (0.001-0.031) x10^3u/L Absolute Lymphs (auto) 1.27 L (1.32-3.57) x10^3/uL Absolute Monos (auto) 0.60 (0.30-0.82) x10^3/uL Absolute Nucleated RBC 0.00 (0.00-0.012) x10^3u/L Lymphocytes % 15.9 L (21.8-53.1) % Monocytes % 7.5 (5.3-12.2) % Eosinophils % 0.9 (0.8-7.0) % Basophils % 0.4 (0.2-1.2) % Absolute Granulocytes 5.98 H (1.78-5.38) x10^3/uL Basophils # 0.03 (0.01-0.08) x10^3/uL Sodium (135-145) mmol/L Potassium (3.5-5.1) mmol/L Chloride (98-107) mmol/L Carbon Dioxide (22-30) mmol/L Anion Gap (5-15) MEQ/L BUN (9-20) mg/dL Creatinine (0.66-1.25) mg/dL Estimated GFR ML/MIN Glucose (74-106) mg/dL Calcium (8.4-10.2) mg/dL Total Bilirubin (0.2-1.3) mg/dL AST (17-59) U/L ALT (0-50) U/L Alkaline Phosphatase (38-126) U/L Troponin I (0.000-0.033) ng/mL Serum Total Protein (6.3-8.2) g/dL Albumin (3.5-5.0) g/dL Lipase (23-300) U/L - Progress Progress: improved Progress Note: 84-year-old male presents to our ED via EMS for evaluation of diarrhea and vomiting complaints of generalized weakness.. No chest pain. Patient is a DNR. Laboratory workup reveals a hypokalemia 2.8. Acute kidney injury with an elevated creatinine of 1.3. Based on history and laboratory findings patient is dehydrated. There is an anion gap acidosis as well. Lactated ringer infusing. EKG is a sinus rhythm. No acute ischemic changes observed. Potassium replaced. Magnesium administered. Vital stable. Plan of care discussed with patient. He agrees to admission to [facility] for [facility] er evaluation and treatment. Portions of this note were created with voice recognition technology. There may be grammatical, spelling, punctuation or sound alike errors Complexity of problem addressed is moderate acute complicated. No critical care time. Complex of data reviewed and analyzed is extensive. Test ordered test reviewed, results analyzed and correlated clinically with history and physical exam. Management discussed with hospitalist who accepts admission at 3:42 PM. Hospitalist is . Risk of complication and or risk of morbidity/mortality of patient management is high. Patient requires hospitalization for further evaluation and treatment. Vital stable. Time spent admit patient approximately 15 minutes. Plan of care established for shared decision making. No social determinants of health present to impede follow-up. Portions of this note were created with voice recognition technology. There may be grammatical, spelling, punctuation or sound alike errors 06/02/24 15:46 Counseled pt/family regarding: lab results, diagnosis - Departure Departure Disposition: Observation Clinical Impression: Nausea vomiting and diarrhea, Dehydration, Generalized weakness, Hypokalemia, Acute renal injury, High anion gap metabolic acidosis, Elevated troponin Condition: Stable Critical Care Time: No Referrals: ENVIVE,ENVIVE [Primary Care Provider] - Follow up/PCP as directed
[2024-06-02] MEDS ORDERED: XYLOCAINE VISCOUS 2% 15 ML CUP ONE (14:01)
[2024-06-02] MEDS: XYLOCAINE VISCOUS 2% 15 ML CUP PO ONE (14:03)
[2024-06-02] MEDS ORDERED: BENADRYL 50 MG/ML ONE (15:04)
[2024-06-02] MEDS: BENADRYL 50 MG/ML IV ONE (15:05)
--- NOTE | 2024-06-02 15:56 | PCM.HP ---
<KELLY KING - Last Filed: 06/02/24 17:05> History of Present Illness - Chief Complaint Chief Complaint: Diarrhea Date: 06/02/24 History of Present Illness: is a 84 year old male with a pmhx of COPD, dementia, HLD, carotid stenosis, anxiety, stroke, lung mass with lung biopsy performed 05/29/24 [address] to ED from [facility] with complaints of diarrhea for the past four days. Patient poor historian, [facility] nursing hourly sales staff Tracey contacted and reports patient has has five days of diarrhea and today coffee ground emesis. She reports he has been complaining of abdominal pain and cramping x 2 weeks. No cp, fever,cough, sob, cp. Upon arrival to ED vitals stable. Lab findings remarkable for hypokalemia at 2.8, Gap acidosis with CO2 at 15/ anion Gap at 19, MASTER with creat at 1.30 (baseline around 0.78), troponins elevated 0.127>0.117, and microcytic anemia with hgb at 11.0. Patient given IVF, potassium, and magnesium in ED. - Review of Systems Constitutional: Weakness Eyes: No Symptoms Ears, Nose, & Throat: No Symptoms Respiratory: No Symptoms Cardiac: No Symptoms Abdominal/Gastrointestinal: Abdominal Pain, Nausea, Vomiting, Diarrhea Genitourinary Symptoms: Hesitancy Musculoskeletal: No Symptoms Skin: No Symptoms Neurological: No Symptoms Psychological: No Symptoms Endocrine: No Symptoms Hematologic/Lymphatic: No Symptoms Immunological/Allergic: No Symptoms Medications & Allergies Home Medications: Home Medication List Acetaminophen 325 mg [Tylenol 325 mg] 650 mg PO Q4HPRN PRN 01/05/22 [History Confirmed 06/02/24] Butalb/Acetaminophen/Caffeine [Esgic 50-325-40 mg Tablet] 1 tab PO Q8HPRN PRN 11/10/22 [History Confirmed 06/02/24] Glycerin/Propylene Glycol [Artificial Tears Drops] 2 drops OP QID 11/10/22 [History Confirmed 06/02/24] Potassium Chloride 20 meq PO TID 11/10/22 [History Confirmed 06/02/24] Atorvastatin Calcium 40 mg PO EVENING MEAL 04/18/24 [History Confirmed 06/02/24] Clopidogrel Bisulfate [Clopidogrel] 75 mg PO DAILY 04/18/24 [History Confirmed 06/02/24] Furosemide 20 mg [Lasix 20 mg] 20 mg PO DAILY 04/18/24 [History Confirmed 06/02/24] Ibuprofen 200 mg [Motrin 200 mg] 200 mg PO Q6HPRN PRN 04/18/24 [History Confirmed 06/02/24] risperiDONE [Risperdal] 0.5 mg PO DAILY 04/18/24 [History Confirmed 06/02/24] Acetaminophen 500 mg [Tylenol Extra Strength 500 mg] 500 mg PO TID 06/02/24 [History Confirmed 06/02/24] Ibuprofen 600 mg PO TID 06/02/24 [History Confirmed 06/02/24] Ondansetron ODT 4 MG [Zofran Odt 4 mg] 4 mg PO Q6H PRN PRN 06/02/24 [History Confirmed 06/02/24] Sertraline HCl 100 mg PO DAILY 06/02/24 [History Confirmed 06/02/24] Allergies/Adverse Reactions: Allergies Allergy/AdvReac Type Severity Reaction Status Date / Time aspirin Allergy Verified 06/02/24 12:37 - Past Medical History Past Medical History: Yes (Questionable histori) Neurological History: Dementia, Stroke ENT History: No Pertinent History Cardiac History: No Pertinent History Respiratory History: COPD Endocrine Medical History: No Pertinent History Musculoskelatal History: No Pertinent History GI Medical History: No Pertinent History History: No Pertinent History Pyscho-Social History: No Pertinent History Male Reproductive Disorders: No Pertinent History Comment: blood clots in lungs, pt is poor historian, does not know - Past Surgical History Past Surgical History: No (unknown) Neuro Surgical History: No Pertinent History Cardiac History: No Pertinent History Respiratory Surgery: No Pertinent History GI Surgical History: Appendectomy Genitourinary Surgical Hx: No Pertinent History Musculskeletal Surgical Hx: No Pertinent History Male Surgical History: No Pertinent History Other Surgical History: lung biopsy - Social History Smoking Status: Former smoker Exposure to second hand smoke: No Alcohol: None Drug Use: none - Social Determinants of Health Will the patient participate in the screening: Yes Do you worry about a steady place to live?: No Do you have any problems with any of the following?: No known problems In the past 12 months,have you had to go without utilities?: No Have you or anyone in your house had to go without enough: No Transportation Issues: No Has anyone in your support network made you feel unsafe?: No - Physical Exam Vital Signs: Vital Signs - 24 hr Temp Pulse Resp BP BP Pulse Ox 06/02/24 15:55 96 06/02/24 15:10 63 20 94 L 06/02/24 15:03 61 22 97 06/02/24 14:31 64 19 95/39 88 L 06/02/24 14:01 57 L 25 H 100/50 95 06/02/24 13:31 65 21 106/41 93 L 06/02/24 13:01 60 23 146/37 96 06/02/24 12:31 59 L 26 H 124/79 96 06/02/24 12:24 97.1 F 71 24 151/59 97 General Appearance: no apparent distress Neurologic Exam: alert, cooperative, confusion Eye Exam: PERRL/EOMI Ears, Nose, Throat Exam: normal ENT inspection Neck Exam: normal inspection Respiratory Exam: diminished breath sounds Cardiovascular Exam: regular rate/rhythm, normal heart sounds Back Exam: normal inspection Extremity Exam: normal inspection Skin Exam: pale Results - Labs Lab/Micro Results: Lab Results-Last 24 Hours 06/02/24 06/02/24 06/02/24 Range/Units 12:40 12:40 12:40 WBC 8.0 (4.23-9.07) x10^3/uL RBC 3.63 L (4.63-6.08) x10^6/uL Hgb 11.0 L (13.7-17.5) g/dL Hct 34.1 L (40.1-51.0) % MCV 93.9 H (79.0-92.2) fL MCH 30.3 (25.7-32.2) pg MCHC 32.3 (32.3-36.5) g/dL RDW 14.6 H (11.6-14.4) % Plt Count 203 (163-337) x10^3/uL MPV 10.3 (9.4-12.4) fL Gran % 75.0 H (34.0-67.9) % Immature Gran % (Auto) 0.3 (0.001-0.429) % Nucleat RBC Rel Count 0.0 (0.00-0.2) % Eos # (Auto) 0.07 (0.04-0.54) x10^3/uL Immature Gran # (Auto) 0.02 (0.001-0.031) x10^3u/L Absolute Lymphs (auto) 1.27 L (1.32-3.57) x10^3/uL Absolute Monos (auto) 0.60 (0.30-0.82) x10^3/uL Absolute Nucleated RBC 0.00 (0.00-0.012) x10^3u/L Lymphocytes % 15.9 L (21.8-53.1) % Monocytes % 7.5 (5.3-12.2) % Eosinophils % 0.9 (0.8-7.0) % Basophils % 0.4 (0.2-1.2) % Absolute Granulocytes 5.98 H (1.78-5.38) x10^3/uL Basophils # 0.03 (0.01-0.08) x10^3/uL Sodium 140 (135-145) mmol/L Potassium 2.8 L* (3.5-5.1) mmol/L Chloride 109 H (98-107) mmol/L Carbon Dioxide 15 L* (22-30) mmol/L Anion Gap 19.0 H (5-15) MEQ/L BUN 18 (9-20) mg/dL Creatinine 1.30 H (0.66-1.25) mg/dL Estimated GFR 53.8 ML/MIN Glucose 169 H (74-106) mg/dL Calcium 9.6 (8.4-10.2) mg/dL Total Bilirubin 0.50 (0.2-1.3) mg/dL AST 28 (17-59) U/L ALT 23 (0-50) U/L Alkaline Phosphatase 49 (38-126) U/L Troponin I 0.117 H* (0.000-0.033) ng/mL Serum Total Protein 7.7 (6.3-8.2) g/dL Albumin 4.1 (3.5-5.0) g/dL Lipase 72 (23-300) U/L 10/15/24 Range/Units 14:44 WBC (4.23-9.07) x10^3/uL RBC (4.63-6.08) x10^6/uL Hgb (13.7-17.5) g/dL Hct (40.1-51.0) % MCV (79.0-92.2) fL MCH (25.7-32.2) pg MCHC (32.3-36.5) g/dL RDW (11.6-14.4) % Plt Count (163-337) x10^3/uL MPV (9.4-12.4) fL Gran % (34.0-67.9) % Immature Gran % (Auto) (0.001-0.429) % Nucleat RBC Rel Count (0.00-0.2) % Eos # (Auto) (0.04-0.54) x10^3/uL Immature Gran # (Auto) (0.001-0.031) x10^3u/L Absolute Lymphs (auto) (1.32-3.57) x10^3/uL Absolute Monos (auto) (0.30-0.82) x10^3/uL Absolute Nucleated RBC (0.00-0.012) x10^3u/L Lymphocytes % (21.8-53.1) % Monocytes % (5.3-12.2) % Eosinophils % (0.8-7.0) % Basophils % (0.2-1.2) % Absolute Granulocytes (1.78-5.38) x10^3/uL Basophils # (0.01-0.08) x10^3/uL Sodium (135-145) mmol/L Potassium (3.5-5.1) mmol/L Chloride (98-107) mmol/L Carbon Dioxide (22-30) mmol/L Anion Gap (5-15) MEQ/L BUN (9-20) mg/dL Creatinine (0.66-1.25) mg/dL Estimated GFR ML/MIN Glucose (74-106) mg/dL Calcium (8.4-10.2) mg/dL Total Bilirubin (0.2-1.3) mg/dL AST (17-59) U/L ALT (0-50) U/L Alkaline Phosphatase (38-126) U/L Troponin I 0.127 H* (0.000-0.033) ng/mL Serum Total Protein (6.3-8.2) g/dL Albumin (3.5-5.0) g/dL Lipase (23-300) U/L Assessment/Plan (1) Hypokalemia Current Visit: Yes Status: Acute Assessment & Plan: -secondary to GI loss -tele -Received 90meq in ED, will recheck and replenish per protocol Code(s): E87.6 - HYPOKALEMIA (2) Acute renal injury Current Visit: Yes Status: Acute Assessment & Plan: -Most likely secondary to hypovolemia due to N/V/D -IVF- creat at 1.30 on arrival now wnl at 1.13 -Monitor renal/lytes -avoid nephrotoxic agents Code(s): N17.9 - ACUTE KIDNEY FAILURE, UNSPECIFIED (3) Elevated troponin Current Visit: Yes Status: Acute Assessment & Plan: -EKG with no acute changes -trend -repeat EKG in a.m. Code(s): R79.89 - OTHER SPECIFIED ABNORMAL FINDINGS OF BLOOD CHEMISTRY (4) High anion gap metabolic acidosis Current Visit: Yes Status: Acute Assessment & Plan: -improving now at 21, continue IVF - monitor for fluid overload Code(s): E87.29 - OTHER ACIDOSIS (5) Nausea vomiting and diarrhea Current Visit: Yes Status: Acute Assessment & Plan: -cdiff, stools culture, O&P, and giardia -immodium if cdiff negative -stool for occult blood -consider surgery consult -Hemoglobin at baseline of 11.0 -trend -CT C/A/P -anti-emetics -IVF -protonix Code(s): R11.2 - NAUSEA WITH VOMITING, UNSPECIFIED; R19.7 - DIARRHEA, UNSPECIFIED (6) Dementia Current Visit: No Status: Acute Assessment & Plan: -continue home meds Code(s): F03.90 - UNSP DEMENTIA, UNSP SEVERITY, WITHOUT BEH/PSYCH/MOOD/ANX (7) COPD (chronic obstructive pulmonary disease) Current Visit: Yes Status: Acute Assessment & Plan: -Supplemental oxygen with goal spo2 89-92% - RA currently -RT eval -nebs prn -ct chest (8) Lung mass Current Visit: No Status: Acute Assessment & Plan: -recent lung biopsy 05/29/24 - no pathology back yet - follows with Dr. Grimm (oncology) Code(s): R91.8 - OTHER NONSPECIFIC ABNORMAL FINDING OF LUNG FIELD Telemedicine Encounter - Telemedicine Encounter Telemedicine Encounter: "The entirety of this encounter was performed via Telemedicine" This visit was performed using real-time audio and video connection between my location and thepatients locationwith the assistance of a surrogateat the patients location. Written or verbal consent was obtained from the patient/guardian to perform this visit [facility] technology. Any patient questions regarding the telemedicine interaction were answered. <HOWARD BUNDY - Last Filed: 06/02/24 19:57> History of Present Illness - Chief Complaint History of Present Illness: is a 84 year old male. - Physical Exam Vital Signs: Vital Signs - 24 hr Temp Pulse Resp BP BP Pulse Ox 06/02/24 18:31 61 06/02/24 17:20 93 L 06/02/24 17:14 93 L 06/02/24 17:07 96.8 F 61 18 111/55 96 06/02/24 16:03 66 22 06/02/24 15:58 96 06/02/24 15:30 68 19 152/130 94 L 06/02/24 15:20 62 27 H 94 L 06/02/24 15:10 63 20 94 L 06/02/24 15:03 61 22 97 06/02/24 14:31 64 19 95/39 88 L 06/02/24 14:01 57 L 25 H 100/50 95 06/02/24 13:31 65 21 106/41 93 L 06/02/24 13:01 60 23 146/37 96 06/02/24 12:31 59 L 26 H 124/79 96 06/02/24 12:24 97.1 F 71 24 151/59 97 Results - Labs Lab/Micro Results: Lab Results-Last 24 Hours 06/02/24 06/02/24 06/02/24 Range/Units 12:40 12:40 12:40 WBC 8.0 (4.23-9.07) x10^3/uL RBC 3.63 L (4.63-6.08) x10^6/uL Hgb 11.0 L (13.7-17.5) g/dL Hct 34.1 L (40.1-51.0) % MCV 93.9 H (79.0-92.2) fL MCH 30.3 (25.7-32.2) pg MCHC 32.3 (32.3-36.5) g/dL RDW 14.6 H (11.6-14.4) % Plt Count 203 (163-337) x10^3/uL MPV 10.3 (9.4-12.4) fL Gran % 75.0 H (34.0-67.9) % Immature Gran % (Auto) 0.3 (0.001-0.429) % Nucleat RBC Rel Count 0.0 (0.00-0.2) % Eos # (Auto) 0.07 (0.04-0.54) x10^3/uL Immature Gran # (Auto) 0.02 (0.001-0.031) x10^3u/L Absolute Lymphs (auto) 1.27 L (1.32-3.57) x10^3/uL Absolute Monos (auto) 0.60 (0.30-0.82) x10^3/uL Absolute Nucleated RBC 0.00 (0.00-0.012) x10^3u/L Lymphocytes % 15.9 L (21.8-53.1) % Monocytes % 7.5 (5.3-12.2) % Eosinophils % 0.9 (0.8-7.0) % Basophils % 0.4 (0.2-1.2) % Absolute Granulocytes 5.98 H (1.78-5.38) x10^3/uL Basophils # 0.03 (0.01-0.08) x10^3/uL Sodium 140 (135-145) mmol/L Potassium 2.8 L* (3.5-5.1) mmol/L Chloride 109 H (98-107) mmol/L Carbon Dioxide 15 L* (22-30) mmol/L Anion Gap 19.0 H (5-15) MEQ/L BUN 18 (9-20) mg/dL Creatinine 1.30 H (0.66-1.25) mg/dL Estimated GFR 53.8 ML/MIN Glucose 169 H (74-106) mg/dL Calcium 9.6 (8.4-10.2) mg/dL Total Bilirubin 0.50 (0.2-1.3) mg/dL AST 28 (17-59) U/L ALT 23 (0-50) U/L Alkaline Phosphatase 49 (38-126) U/L Troponin I 0.117 H* (0.000-0.033) ng/mL Serum Total Protein 7.7 (6.3-8.2) g/dL Albumin 4.1 (3.5-5.0) g/dL Prealbumin (17.6-36.0) mg/dL Lipase 72 (23-300) U/L 06/02/24 06/02/24 06/02/24 Range/Units 14:44 16:40 17:38 WBC (4.23-9.07) x10^3/uL RBC (4.63-6.08) x10^6/uL Hgb (13.7-17.5) g/dL Hct (40.1-51.0) % MCV (79.0-92.2) fL MCH (25.7-32.2) pg MCHC (32.3-36.5) g/dL RDW (11.6-14.4) % Plt Count (163-337) x10^3/uL MPV (9.4-12.4) fL Gran % (34.0-67.9) % Immature Gran % (Auto) (0.001-0.429) % Nucleat RBC Rel Count (0.00-0.2) % Eos # (Auto) (0.04-0.54) x10^3/uL Immature Gran # (Auto) (0.001-0.031) x10^3u/L Absolute Lymphs (auto) (1.32-3.57) x10^3/uL Absolute Monos (auto) (0.30-0.82) x10^3/uL Absolute Nucleated RBC (0.00-0.012) x10^3u/L Lymphocytes % (21.8-53.1) % Monocytes % (5.3-12.2) % Eosinophils % (0.8-7.0) % Basophils % (0.2-1.2) % Absolute Granulocytes (1.78-5.38) x10^3/uL Basophils # (0.01-0.08) x10^3/uL Sodium 139 (135-145) mmol/L Potassium 3.2 L (3.5-5.1) mmol/L Chloride 108 H (98-107) mmol/L Carbon Dioxide 21 L (22-30) mmol/L Anion Gap 13.7 (5-15) MEQ/L BUN 17 (9-20) mg/dL Creatinine 1.13 (0.66-1.25) mg/dL Estimated GFR 63.7 ML/MIN Glucose 124 H (74-106) mg/dL Calcium 9.4 (8.4-10.2) mg/dL Total Bilirubin 0.30 (0.2-1.3) mg/dL AST 26 (17-59) U/L ALT 19 (0-50) U/L Alkaline Phosphatase 49 (38-126) U/L Troponin I 0.127 H* (0.000-0.033) ng/mL Serum Total Protein 7.0 (6.3-8.2) g/dL Albumin 3.5 (3.5-5.0) g/dL Prealbumin 12.47 L (17.6-36.0) mg/dL Lipase (23-300) U/L Microbiology 06/02/24 Unknown Stool Culture Result 1 - Final Stool Not Reportable Stool Culture Result 2 - Final Not Reportable Stool Culture Result 3 - Final Not Reportable Stool Culture Result 4 - Final Not Reportable Stool Culture Organism Suscept - Final Not Reportable Campylobacter Result 1 - Final Not Reportable Campylobacter Result 2 - Final Not Reportable Campylobactor Result 3 - Final Not Reportable Campylobacter Result 4 - Final Not Reportable Campylobactor Susceptibility - Final Not Reportable - Radiology Impressions Radiology Exams & Impressions: Radiology Procedures Category Date Time Status ABDOMEN AND PELVIS W/0 CONTRAS [CT] Stat Exams 06/02/24 16:57 Taken CHEST WITHOUT CONTRAST [CT] Stat Exams 06/02/24 16:57 Taken - Other Procedures and Tests Respiratory Therapy 06/02/24 16:57 EKG REPEAT IN AM Telemedicine Encounter - Telemedicine Encounter Telemedicine Encounter: "The entirety of this encounter was performed via Telemedicine" This visit was performed using real-time audio and video connection between my location and thepatients locationwith the assistance of a surrogateat the patients location. Written or verbal consent was obtained from the patient/guardian to perform this visit using[facility] technology. Any patient questions regarding the telemedicine interaction were answered. MACO Encounter - MACO Encounter Attestation MACO Encounter Attestation: "YOMAIRA Schwartziscussed per tinent aspects of their care with Kelly King and agree with the history, physical exam (any modifications based on my personal exam will be noted below), assessment, and plan as outlined in original note. Please see immediately below for my summary of findings and additional assessment and plan along with any meaningful corrections/explanations to the Subjective/Objective portions of the MACO note will be noted." My portion of the encounter took place via telemedicine. -N/V/D with hypokalemia, metabolic acidosis and MASTER. Improving s/p IVF. Likely acute gastroenteritis but will check abdomen/pelvis CT given his age and dementia (unreliable history). He had lung biopsy 2 days ago and there was report of coffee ground emesis therefore will check chest CT as well.
[2024-06-02] MEDS ORDERED: DUONEB 0.5-3 MG/3 ml Neb IH PRN (16:57)
[2024-06-02 16:59] LABS: ALBUMIN 3.5 g/dL (3.5-5.0); ANION GAP 13.7 MEQ/L (5-15); BILIRUBIN,TOTAL 0.3 mg/dL (0.2-1.3); Calcium 9.4 mg/dL (8.4-10.2); Creatinine 1 1.13 mg/dL (0.66-1.25); EST GLOMERULAR FILTRATION RATE 63.7 ML/MIN; Potassium 3.2 mmol/L (3.5-5.1)
[2024-06-02] MEDS: PROTONIX 40 MG IV IV SCH (18:15)
[2024-06-02] MEDS: LIPITOR 40MG PO SCH (19:34)
[2024-06-02] MEDS: GLYCERIN OP SCH (23:13)
[2024-06-02] MEDS: PROPYLENE GLYCOL OP SCH (23:13)
[2024-06-03] MEDS: TYLENOL 325 MG PO PRN (00:43)
[2024-06-03 03:51] LABS: ANION GAP 12.4 MEQ/L (5-15); BILIRUBIN,TOTAL 0.4 mg/dL (0.2-1.3); Calcium 9.2 mg/dL (8.4-10.2); Creatinine 1 1.05 mg/dL (0.66-1.25); EST GLOMERULAR FILTRATION RATE 69.6 ML/MIN; Potassium 3.1 mmol/L (3.5-5.1); Total Protein 5.9 g/dL (6.3-8.2)
[2024-06-03 03:54] LABS: Absolute Neutrophil Ct (ANC) 4.48 x10^3/uL (1.78-5.38); BASOPHIL % 0.4 % (0.2-1.2); Basophil (Absolute #) 0.03 x10^3/uL (0.01-0.08); Eosinophil % 1.6 % (0.8-7.0); Eosinophil (Absolute #) 0.11 x10^3/uL (0.04-0.54); Hemoglobin 9.4 g/dL (13.7-17.5); IMMATURE GRAN # 0.01 x10^3u/L (0.001-0.031); IMMATURE GRAN % 0.1 % (0.001-0.429); Lymphocyte (Absolute #) 1.46 x10^3/uL (1.32-3.57); Lymphocytes % 21.9 % (21.8-53.1); Mean Cell Volume 91.5 fL (79.0-92.2); Mean Corpuscular Hemoglobin 30.7 pg (25.7-32.2); Mean Corpuscular Hgb Concent. 33.6 g/dL (32.3-36.5); Mean Platelet Volume 10.2 fL (9.4-12.4); Monocyte (Absolute #) 0.59 x10^3/uL (0.30-0.82); Monocytes % 8.8 % (5.3-12.2); Neutrophil % 67.2 % (34.0-67.9); Platelet Count 185 x10^3/uL (163-337); Red Blood Count 3.06 x10^6/uL (4.63-6.08); Red Cell Distribution Width 14.7 % (11.6-14.4); White Blood Count 6.7 x10^3/uL (4.23-9.07)
--- NOTE | 2024-06-03 05:17 | PCM.NOTE ---
Date and Time: 06/03/24 0516 Subjective Assessment: is a 84 year old male with a pmhx of COPD, dementia, HLD, carotid stenosis, anxiety, stroke, lung mass with lung biopsy performed 05/29/24 presented to ED from [facility] with complaints of diarrhea for the past four days. Patient poor historian, [facility] nursing staff nurse icu resource team Tracey contacted and reports sonu rahman has has five days of diarrhea and today coffee ground emesis. She reports he has been complaining of abdominal pain and cramping x 2 weeks. No cp, fever,cough, sob, cp.Upon arrival to ED vitals stable. Lab findings remarkable for hypokalemia at 2.8, Gap acidosis with CO2 at 15/ anion Gap at 19, MASTER with creat at 1.30 (baseline around 0.78), troponins elevated 0.127>0.117, and microcytic anemia with hgb at 11.0. Patient given IVF, potassium, and magnesium in ED. : Patient endorsing continued diarrhea and urinary retention. No vomiting. Bladder scan performed with 745mls retained. Del Rosario catheter placed. UA negative. CDiff and occult stools negative. CT with colonic diarrhea, gallstones, and enlarged prostate. CT chest with no acute changes. Most likely viral gastroenteritis. Labs much improved today. Will replenish potassium. Troponins elevated but downtrending - no acute findings on EKG. - Review of Systems Constitutional: Weakness Eyes: No Symptoms Ears, Nose, & Throat: No Symptoms Respiratory: No Symptoms Cardiac: No Symptoms Abdominal/Gastrointestinal: Diarrhea Genitourinary Symptoms: No Symptoms Musculoskeletal: No Symptoms Skin: No Symptoms Neurological: No Symptoms Psychological: No Symptoms Endocrine: No Symptoms Hematologic/Lymphatic: Anemia Immunological/Allergic: No Symptoms Objective Exam General Appearance: no apparent distress Neurologic Exam: alert, 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, cooperative Skin Exam: normal color Wound Assessment: Skin/Wound Assessment Wound/Incision Assessment Start: 06/02/24 17:38 Text: Status: Active Freq: Q6H Protocol: Document 06/03/24 02:00 LB (Rec: 06/03/24 03:20 LB [id number]) Wound/Incision Assessment Right Upper Lateral Thigh Wound Assessment Shift Assessment Wound Type pus filled blister Wound Stage Non Pressure Wound Dressing Status Dry & Intact Drainage Amount None Drainage Odor None/Absent Surrounding Tissue Bright Red Primary Dressing 4x4 mepilex Wound Photo Photo Taken No Eye Exam: PERRL Ears, Nose, Throat Exam: dry mucous membranes Neck Exam: normal inspection Respiratory Exam: crackles/rales Cardiovascular Exam: regular rate/rhythm, normal heart sounds Gastrointestinal/Abdomen Exam: soft, normal bowel sounds Extremity Exam: normal inspection Back Exam: normal inspection Male Genitalia Exam: deferred Rectal Exam: deferred Objective Data Vital Signs: Vital Signs - 24 hr Temp Pulse Resp BP BP Pulse Ox 06/03/24 04:00 97.4 F 65 18 111/56 93 L 06/03/24 00:00 98.8 F 63 18 125/58 95 06/02/24 20:00 97.7 F 67 16 115/60 91 L 06/02/24 19:10 71 20 93 L 06/02/24 18:31 61 06/02/24 17:20 93 L 06/02/24 17:14 93 L 06/02/24 17:07 96.8 F 61 18 111/55 96 06/02/24 16:03 66 22 06/02/24 15:58 96 06/02/24 15:30 68 19 152/130 94 L 06/02/24 15:20 62 27 H 94 L 06/02/24 15:10 63 20 94 L 06/02/24 15:03 61 22 97 06/02/24 14:31 64 19 95/39 88 L 06/02/24 14:01 57 L 25 H 100/50 95 06/02/24 13:31 65 21 106/41 93 L 06/02/24 13:01 60 23 146/37 96 06/02/24 12:31 59 L 26 H 124/79 96 06/02/24 12:24 97.1 F 71 24 151/59 97 Pain Assessment - Last Documented Pain Intensity 0 Pain Scale Used FLACC Intake and Output: Intake & Output 05/31/24 06/01/24 06/02/24 06/03/24 11:59 11:59 11:59 11:59 Intake Total 360 Balance 360 Weight 79.3 kg Lab Results: Lab Results-Last 24 Hours 06/02/24 06/02/24 06/02/24 Range/Units 12:40 12:40 12:40 WBC 8.0 (4.23-9.07) x10^3/uL RBC 3.63 L (4.63-6.08) x10^6/uL Hgb 11.0 L (13.7-17.5) g/dL Hct 34.1 L (40.1-51.0) % MCV 93.9 H (79.0-92.2) fL MCH 30.3 (25.7-32.2) pg MCHC 32.3 (32.3-36.5) g/dL RDW 14.6 H (11.6-14.4) % Plt Count 203 (163-337) x10^3/uL MPV 10.3 (9.4-12.4) fL Gran % 75.0 H (34.0-67.9) % Immature Gran % (Auto) 0.3 (0.001-0.429) % Nucleat RBC Rel Count 0.0 (0.00-0.2) % Eos # (Auto) 0.07 (0.04-0.54) x10^3/uL Immature Gran # (Auto) 0.02 (0.001-0.031) x10^3u/L Absolute Lymphs (auto) 1.27 L (1.32-3.57) x10^3/uL Absolute Monos (auto) 0.60 (0.30-0.82) x10^3/uL Absolute Nucleated RBC 0.00 (0.00-0.012) x10^3u/L Lymphocytes % 15.9 L (21.8-53.1) % Monocytes % 7.5 (5.3-12.2) % Eosinophils % 0.9 (0.8-7.0) % Basophils % 0.4 (0.2-1.2) % Absolute Granulocytes 5.98 H (1.78-5.38) x10^3/uL Basophils # 0.03 (0.01-0.08) x10^3/uL Sodium 140 (135-145) mmol/L Potassium 2.8 L* (3.5-5.1) mmol/L Chloride 109 H (98-107) mmol/L Carbon Dioxide 15 L* (22-30) mmol/L Anion Gap 19.0 H (5-15) MEQ/L BUN 18 (9-20) mg/dL Creatinine 1.30 H (0.66-1.25) mg/dL Estimated GFR 53.8 ML/MIN Glucose 169 H (74-106) mg/dL Calcium 9.6 (8.4-10.2) mg/dL Total Bilirubin 0.50 (0.2-1.3) mg/dL AST 28 (17-59) U/L ALT 23 (0-50) U/L Alkaline Phosphatase 49 (38-126) U/L Troponin I 0.117 H* (0.000-0.033) ng/mL Serum Total Protein 7.7 (6.3-8.2) g/dL Albumin 4.1 (3.5-5.0) g/dL Prealbumin (17.6-36.0) mg/dL Lipase 72 (23-300) U/L 06/02/24 06/02/24 06/02/24 Range/Units 14:44 16:40 17:38 WBC (4.23-9.07) x10^3/uL RBC (4.63-6.08) x10^6/uL Hgb (13.7-17.5) g/dL Hct (40.1-51.0) % MCV (79.0-92.2) fL MCH (25.7-32.2) pg MCHC (32.3-36.5) g/dL RDW (11.6-14.4) % Plt Count (163-337) x10^3/uL MPV (9.4-12.4) fL Gran % (34.0-67.9) % Immature Gran % (Auto) (0.001-0.429) % Nucleat RBC Rel Count (0.00-0.2) % Eos # (Auto) (0.04-0.54) x10^3/uL Immature Gran # (Auto) (0.001-0.031) x10^3u/L Absolute Lymphs (auto) (1.32-3.57) x10^3/uL Absolute Monos (auto) (0.30-0.82) x10^3/uL Absolute Nucleated RBC (0.00-0.012) x10^3u/L Lymphocytes % (21.8-53.1) % Monocytes % (5.3-12.2) % Eosinophils % (0.8-7.0) % Basophils % (0.2-1.2) % Absolute Granulocytes (1.78-5.38) x10^3/uL Basophils # (0.01-0.08) x10^3/uL Sodium 139 (135-145) mmol/L Potassium 3.2 L (3.5-5.1) mmol/L Chloride 108 H (98-107) mmol/L Carbon Dioxide 21 L (22-30) mmol/L Anion Gap 13.7 (5-15) MEQ/L BUN 17 (9-20) mg/dL Creatinine 1.13 (0.66-1.25) mg/dL Estimated GFR 63.7 ML/MIN Glucose 124 H (74-106) mg/dL Calcium 9.4 (8.4-10.2) mg/dL Total Bilirubin 0.30 (0.2-1.3) mg/dL AST 26 (17-59) U/L ALT 19 (0-50) U/L Alkaline Phosphatase 49 (38-126) U/L Troponin I 0.127 H* (0.000-0.033) ng/mL Serum Total Protein 7.0 (6.3-8.2) g/dL Albumin 3.5 (3.5-5.0) g/dL Prealbumin 12.47 L (17.6-36.0) mg/dL Lipase (23-300) U/L 06/02/24 06/02/24 06/03/24 Range/Units 20:30 23:30 03:25 WBC 6.7 (4.23-9.07) x10^3/uL RBC 3.06 L (4.63-6.08) x10^6/uL Hgb 9.4 L (13.7-17.5) g/dL Hct 28.0 L (40.1-51.0) % MCV 91.5 (79.0-92.2) fL MCH 30.7 (25.7-32.2) pg MCHC 33.6 (32.3-36.5) g/dL RDW 14.7 H (11.6-14.4) % Plt Count 185 (163-337) x10^3/uL MPV 10.2 (9.4-12.4) fL Gran % 67.2 (34.0-67.9) % Immature Gran % (Auto) 0.1 (0.001-0.429) % Nucleat RBC Rel Count 0.0 (0.00-0.2) % Eos # (Auto) 0.11 (0.04-0.54) x10^3/uL Immature Gran # (Auto) 0.01 (0.001-0.031) x10^3u/L Absolute Lymphs (auto) 1.46 (1.32-3.57) x10^3/uL Absolute Monos (auto) 0.59 (0.30-0.82) x10^3/uL Absolute Nucleated RBC 0.00 (0.00-0.012) x10^3u/L Lymphocytes % 21.9 (21.8-53.1) % Monocytes % 8.8 (5.3-12.2) % Eosinophils % 1.6 (0.8-7.0) % Basophils % 0.4 (0.2-1.2) % Absolute Granulocytes 4.48 (1.78-5.38) x10^3/uL Basophils # 0.03 (0.01-0.08) x10^3/uL Sodium (135-145) mmol/L Potassium (3.5-5.1) mmol/L Chloride (98-107) mmol/L Carbon Dioxide (22-30) mmol/L Anion Gap (5-15) MEQ/L BUN (9-20) mg/dL Creatinine (0.66-1.25) mg/dL Estimated GFR ML/MIN Glucose (74-106) mg/dL Calcium (8.4-10.2) mg/dL Total Bilirubin (0.2-1.3) mg/dL AST (17-59) U/L ALT (0-50) U/L Alkaline Phosphatase (38-126) U/L Troponin I 0.152 H* 0.164 H* (0.000-0.033) ng/mL Serum Total Protein (6.3-8.2) g/dL Albumin (3.5-5.0) g/dL Prealbumin (17.6-36.0) mg/dL Lipase (23-300) U/L 06/03/24 06/03/24 Range/Units 03:25 03:25 WBC (4.23-9.07) x10^3/uL RBC (4.63-6.08) x10^6/uL Hgb (13.7-17.5) g/dL Hct (40.1-51.0) % MCV (79.0-92.2) fL MCH (25.7-32.2) pg MCHC (32.3-36.5) g/dL RDW (11.6-14.4) % Plt Count (163-337) x10^3/uL MPV (9.4-12.4) fL Gran % (34.0-67.9) % Immature Gran % (Auto) (0.001-0.429) % Nucleat RBC Rel Count (0.00-0.2) % Eos # (Auto) (0.04-0.54) x10^3/uL Immature Gran # (Auto) (0.001-0.031) x10^3u/L Absolute Lymphs (auto) (1.32-3.57) x10^3/uL Absolute Monos (auto) (0.30-0.82) x10^3/uL Absolute Nucleated RBC (0.00-0.012) x10^3u/L Lymphocytes % (21.8-53.1) % Monocytes % (5.3-12.2) % Eosinophils % (0.8-7.0) % Basophils % (0.2-1.2) % Absolute Granulocytes (1.78-5.38) x10^3/uL Basophils # (0.01-0.08) x10^3/uL Sodium 139 (135-145) mmol/L Potassium 3.1 L (3.5-5.1) mmol/L Chloride 110 H (98-107) mmol/L Carbon Dioxide 20 L (22-30) mmol/L Anion Gap 12.4 (5-15) MEQ/L BUN 15 (9-20) mg/dL Creatinine 1.05 (0.66-1.25) mg/dL Estimated GFR 69.6 ML/MIN Glucose 127 H (74-106) mg/dL Calcium 9.2 (8.4-10.2) mg/dL Total Bilirubin 0.40 (0.2-1.3) mg/dL AST 24 (17-59) U/L ALT 15 (0-50) U/L Alkaline Phosphatase 42 (38-126) U/L Troponin I 0.171 H* (0.000-0.033) ng/mL Serum Total Protein 5.9 L (6.3-8.2) g/dL Albumin 3.0 L (3.5-5.0) g/dL Prealbumin (17.6-36.0) mg/dL Lipase (23-300) U/L Radiology Exams: Radiology Procedures Category Date Time Status ABDOMEN AND PELVIS W/0 CONTRAS [CT] Stat Exams 06/02/24 16:57 Taken CHEST WITHOUT CONTRAST [CT] Stat Exams 06/02/24 16:57 Taken Assessment/Plan (1) Hypokalemia Current Visit: Yes Status: Acute Assessment & Plan: -secondary to GI loss -tele -Received 90meq in ED, will recheck and replenish per protocol 06/03: -improved at 3.1- will replenish -continue to monitor Code(s): E87.6 - HYPOKALEMIA (2) Acute renal injury Current Visit: Yes Status: Acute Assessment & Plan: -Most likely secondary to hypovolemia due to N/V/D -IVF- creat at 1.30 on arrival now wnl at 1.13 -Monitor renal/lytes -avoid nephrotoxic agents 06/03 -resolved Code(s): N17.9 - ACUTE KIDNEY FAILURE, UNSPECIFIED (3) Elevated troponin Current Visit: Yes Status: Acute Assessment & Plan: -EKG with no acute changes -trend -repeat EKG in a.m. 06/03: -EKG unremarkable - no chest pain - trops downtrending Code(s): R79.89 - OTHER SPECIFIED ABNORMAL FINDINGS OF BLOOD CHEMISTRY (4) High anion gap metabolic acidosis Current Visit: Yes Status: Acute Assessment & Plan: -improving now at 21, continue IVF - monitor for fluid overload Code(s): E87.29 - OTHER ACIDOSIS (5) Nausea vomiting and diarrhea Current Visit: Yes Status: Acute Assessment & Plan: -cdiff, stools culture, O&P, and giardia -immodium if cdiff negative -stool for occult blood -consider surgery consult -Hemoglobin at baseline of 11.0 -trend -CT C/A/P -anti-emetics -IVF -protonix 10/16: -CT a/p with colonic diarrhea, gallstones, enlarged prostate and left inguinal hernia -CDiff/occult stool negative -CT chest with no acute findings - no further vomiting -immodium for diarrhea Code(s): R11.2 - NAUSEA WITH VOMITING, UNSPECIFIED; R19.7 - DIARRHEA, UNSPECIFIED (6) Dementia Current Visit: No Status: Acute Assessment & Plan: -continue home meds Code(s): F03.90 - UNSP DEMENTIA, UNSP SEVERITY, WITHOUT BEH/PSYCH/MOOD/ANX (7) COPD (chronic obstructive pulmonary disease) Current Visit: Yes Status: Acute Assessment & Plan: -Supplemental oxygen with goal spo2 89-92% - RA currently -RT eval -nebs prn -ct chest with no acute findings - stable (8) Lung mass Current Visit: No Status: Acute Assessment & Plan: -recent lung biopsy 05/29/24 - no pathology back yet - follows with Dr. Grimm (oncology) Code(s): R91.8 - OTHER NONSPECIFIC ABNORMAL FINDING OF LUNG FIELD Code(s): E87.6 - HYPOKALEMIA (2) Acute renal injury Current Visit: Yes Status: Acute Code(s): N17.9 - ACUTE KIDNEY FAILURE, UNSPECIFIED (3) Elevated troponin Current Visit: Yes Status: Acute Code(s): R79.89 - OTHER SPECIFIED ABNORMAL FINDINGS OF BLOOD CHEMISTRY (4) High anion gap metabolic acidosis Current Visit: Yes Status: Acute Code(s): E87.29 - OTHER ACIDOSIS (5) Nausea vomiting and diarrhea Current Visit: Yes Status: Acute Code(s): R11.2 - NAUSEA WITH VOMITING, UNSPECIFIED; R19.7 - DIARRHEA, UNSPECIFIED (6) Dementia Current Visit: No Status: Acute Code(s): F03.90 - UNSP DEMENTIA, UNSP SEVERITY, WITHOUT BEH/PSYCH/MOOD/ANX (7) COPD (chronic obstructive pulmonary disease) Current Visit: Yes Status: Acute (8) Lung mass Current Visit: No Status: Acute Code(s): R91.8 - OTHER NONSPECIFIC ABNORMAL FINDING OF LUNG FIELD
[2024-06-03] MEDS: ZOLOFT 50 MG TABLET PO SCH (08:39)
[2024-06-03] MEDS: Klor Con PO SCH (08:39)
[2024-06-03] MEDS: Risperdal 1 MG PO SCH (08:39)
[2024-06-03] MEDS: PLAVIX Tablet PO SCH (08:39)
[2024-06-03] MEDS: Artificial Tears 15 ML OP SCH (08:40)
--- NOTE | 2024-06-03 08:51 | XRAY ---
Indication: Short of breath. Hematemesis. Lung mass. Multiple contiguous axial images obtained through the chest without contrast as ordered. 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 Also grossly stable 3 mm left upper lobe noncalcified nodule. Remaining lungs again demonstrates diffuse pulmonary emphysema, scattered peripheral subsegmental atelectasis/scarring, and small posterior right lower lobe calcified granuloma. No new pulmonary mass/nodule, infiltrate, or effusion. Heart not enlarged again with aortic/mitral valve calcifications. Aorta again mildly arteriosclerotic without aneurysm. Stable prominent mediastinal and right superhilar lymphadenopathy again largest right suprahilar measuring 2.5 x 3.0 cm. Stable incidental tiny precarinal calcified node. Bony thorax intact again with osteopenia and mild/moderate degenerative changes throughout spine. No suspicious bony lesions. CT abdomen/pelvis reported separately. Impression: No change. Grossly stable right upper lobe cavitary mass/malignancy, mediastinal/right superhilar metastatic lymphadenopathy, tiny left upper lobe noncalcified nodule, pulmonary emphysema, atelectasis/scarring, arteriosclerotic disease, old granulomatous disease, and chronic bony findings. No new/acute findings on this noncontrast exam.
[2024-06-03 08:55] LABS: IFOB TEST RESULTS NEGATIVE (NEGATIVE)
--- NOTE | 2024-06-03 08:55 | XRAY ---
Indication: Diarrhea. Hematemesis. Multiple contiguous axial images obtained through the abdomen and pelvis without contrast. Comparison: April 18, 2024 CT chest reported separately. Noncontrasted stomach and bowel loops appear nonobstructed with new mild diffuse colonic diarrhea. No abnormal bowel wall thickening or inflammatory changes. Gallbladder again demonstrates punctate gallstone with minimal wall thickening. Also stable 3 mm choledochal stone. Again enlarged prostate gland impresses on the base of the bladder. No free fluid/air. Remaining liver, pancreas, spleen, adrenal glands, kidneys, ureters, and bladder are unremarkable for noncontrast exam. Stable moderate scattered aortoiliac calcifications including both main renal arteries. No AAA. Osseous structures intact again with osteopenia, mild/moderate degenerative changes throughout spine, and moderate degenerative changes both hips. No suspicious bony lesions. Stable incidental small fatty left inguinal hernia. Impression: 1. New colonic diarrhea. 2. Stable tiny gallbladder and choledochal stone. Again minimal gallbladder wall thickening. Gallbladder sonogram may yield further information if clinically warranted. 3. Chronic findings including enlarged prostate gland, arteriosclerotic disease, chronic bony findings, and fatty left inguinal hernia.
[2024-06-03 09:36] LABS: 027 TOX PROD PRESUMPTIVE NEGATIVE (NEGATIVE); TOXIGENIC C. DIFF ORG NEGATIVE (NEGATIVE)
[2024-06-03] MEDS ORDERED: NON-FORMULARY ITEM (Sertraline Hcl [Sertraline Hcl] 100 MG Tablet) PO SCH (10:00)
[2024-06-03] MEDS ORDERED: NON-FORMULARY ITEM (Risperidone [Risperdal] 0.5 MG Tablet) PO SCH (10:00)
[2024-06-03 12:01] LABS: Appearance Clear (Clear); Bacteria None Seen /HPF (None Seen); Bilirubin Negative (Negative); Blood Negative (Negative); Epithelial Cells Rare /HPF (None Seen); Glucose, Urine Negative (Negative); Ketones Negative (Negative); Leukocyte Esterase Negative (Negative); Nitrite Negative (Negative); Ph 5.5 (4.6-8.0); Protein,Urine Dip 30 (Negative); RBC 0-2 /HPF (0-5); Urobilinogen 0.2 mg/dL (0.2)
[2024-06-03] MEDS: IMODIUM 2 MG PO PRN (13:30)
[2024-06-03] MEDS ORDERED: ZOCOR 20MG PO SCH (18:00)
--- NOTE | 2024-06-04 05:30 | PCM.NOTE ---
Date and Time: 06/04/24 0529 Subjective Assessment: is a 84 year old male with a pmhx of COPD, dementia, HLD, carotid stenosis, anxiety, stroke, lung mass with lung biopsy performed 05/29/24 presented to ED from [facility] with complaints of diarrhea for the past four days. Patient poor historian, [facility] nursing distributed generation project manager Tracey contacted and reports sonu rahman has has five days of diarrhea and today coffee ground emesis. She reports he has been complaining of abdominal pain and cramping x 2 weeks. No cp, fever,cough, sob, cp.Upon arrival to ED vitals stable. Lab findings remarkable for hypokalemia at 2.8, Gap acidosis with CO2 at 15/ anion Gap at 19, MASTER with creat at 1.30 (baseline around 0.78), troponins elevated 0.127>0.117, and microcytic anemia with hgb at 11.0. Patient given IVF, potassium, and magnesium in ED. : Patient endorsing continued diarrhea and urinary retention. No vomiting. Bladder scan performed with 745mls retained. Del Rosario catheter placed. UA negative. CDiff and occult stools negative. CT with colonic diarrhea, gallstones, and enlarged prostate. CT chest with no acute changes. Most likely viral gastroenteritis. Labs much improved today. Will replenish potassium. Troponins elevated but downtrending - no acute findings on EKG. Objective Exam Wound Assessment: Skin/Wound Assessment Wound/Incision Assessment Start: 06/02/24 17:38 Text: Status: Active Freq: Q6H Protocol: Document 06/04/24 02:00 LB (Rec: 06/04/24 02:57 LB [id number]) Wound/Incision Assessment Right Upper Lateral Thigh Wound Assessment Shift Assessment Wound Type blister Wound Stage Stage II Dressing Status Dry & Intact Primary Dressing mepilex border dressing Comment dressing intact Objective Data Vital Signs: Vital Signs - 24 hr Temp Pulse Resp BP Pulse Ox 06/04/24 04:00 98.2 F 74 20 125/58 93 L 06/04/24 00:00 16 06/03/24 23:53 97.5 F 73 16 127/58 95 06/03/24 20:00 97.7 F 66 20 138/92 95 06/03/24 17:52 68 06/03/24 16:00 97.3 F 70 16 121/59 95 06/03/24 12:20 16 06/03/24 12:00 97.2 F 60 16 117/56 92 L 06/03/24 08:00 19 06/03/24 06:59 60 16 91 L 06/03/24 06:39 97.0 F 61 16 120/58 95 Pain Assessment - Last Documented Pain Intensity 0 Pain Scale Used [facility] Intake and Output: Intake & Output 06/01/24 06/02/24 06/03/24 06/04/24 11:59 11:59 11:59 11:59 Intake Total 600 680 Balance 600 680 Weight 78.5 kg Lab Results: Lab Results-Last 24 Hours 06/02/24 06/03/24 06/03/24 Range/Units 12:26 03:25 08:45 Potassium (3.5-5.1) mmol/L Magnesium 2.0 (1.6-2.3) mg/dL Troponin I (0.000-0.033) ng/mL Urine Color Yellow (Yellow) Urine Appearance Clear (Clear) Urine pH 5.5 (4.6-8.0) Ur Specific [place] 1.020 (1.005-1.030) Urine Protein 30 (Negative) Urine Glucose (UA) Negative (Negative) mg/dL Urine Ketones Negative (Negative) Urine Blood Negative (Negative) Urine Nitrite Negative (Negative) Urine Bilirubin Negative (Negative) Urine Urobilinogen 0.2 (0.2) mg/dL Ur Leukocyte Esterase Negative (Negative) U Hyaline Cast (Auto) 3-5 A (0-2) /LPF Urine Microscopic RBC 0-2 (0-5) /HPF Urine Microscopic WBC 3-5 (0-5) /HPF Ur Epithelial Cells Rare (None Seen) /HPF Urine Bacteria None Seen (None Seen) /HPF Urine Culture Reflexed NO (NO) Stl Occult Blood (IFOB) (NEGATIVE) C. difficile Screen NEGATIVE (NEGATIVE) C.difficile [id number] PRESUMPTIVE NEGATIVE (NEGATIVE) 06/03/24 06/03/24 06/03/24 Range/Units 08:45 10:27 14:15 Potassium 3.5 (3.5-5.1) mmol/L Magnesium (1.6-2.3) mg/dL Troponin I 0.118 H* (0.000-0.033) ng/mL Urine Color (Yellow) Urine Appearance (Clear) Urine pH (4.6-8.0) Ur Specific [place] (1.005-1.030) Urine Protein (Negative) Urine Glucose (UA) (Negative) mg/dL Urine Ketones (Negative) Urine Blood (Negative) Urine Nitrite (Negative) Urine Bilirubin (Negative) Urine Urobilinogen (0.2) mg/dL Ur Leukocyte Esterase (Negative) U Hyaline Cast (Auto) (0-2) /LPF Urine Microscopic RBC (0-5) /HPF Urine Microscopic WBC (0-5) /HPF Ur Epithelial Cells (None Seen) /HPF Urine Bacteria (None Seen) /HPF Urine Culture Reflexed (NO) Stl Occult Blood (IFOB) NEGATIVE (NEGATIVE) C. difficile Screen (NEGATIVE) C.difficile [id number] (NEGATIVE) Radiology Exams: Radiology Procedures Category Date Time Status ABDOMEN AND PELVIS W/0 CONTRAS [CT] Stat Exams 06/02/24 16:57 Completed CHEST WITHOUT CONTRAST [CT] Stat Exams 06/02/24 16:57 Completed Assessment/Plan (1) Hypokalemia Current Visit: Yes Status: Acute Assessment & Plan: -secondary to GI loss -tele -Received 90meq in ED, will recheck and replenish per protocol 06/03: -improved at 3.1- will replenish -continue to monitor Code(s): E87.6 - HYPOKALEMIA (2) Acute renal injury Current Visit: Yes Status: Acute Assessment & Plan: -Most likely secondary to hypovolemia due to N/V/D -IVF- creat at 1.30 on arrival now wnl at 1.13 -Monitor renal/lytes -avoid nephrotoxic agents 06/03 -resolved Code(s): N17.9 - ACUTE KIDNEY FAILURE, UNSPECIFIED (3) Elevated troponin Current Visit: Yes Status: Acute Assessment & Plan: -EKG with no acute changes -trend -repeat EKG in a.m. 06/03: -EKG unremarkable - no chest pain - trops downtrending Code(s): R79.89 - OTHER SPECIFIED ABNORMAL FINDINGS OF BLOOD CHEMISTRY (4) High anion gap metabolic acidosis Current Visit: Yes Status: Acute Assessment & Plan: -improving now at 21, continue IVF - monitor for fluid overload Code(s): E87.29 - OTHER ACIDOSIS (5) Nausea vomiting and diarrhea Current Visit: Yes Status: Acute Assessment & Plan: -cdiff, stools culture, O&P, and giardia -immodium if cdiff negative -stool for occult blood -consider surgery consult -Hemoglobin at baseline of 11.0 -trend -CT C/A/P -anti-emetics -IVF -protonix 06/03: -CT a/p with colonic diarrhea, gallstones, enlarged prostate and left inguinal hernia -CDiff/occult stool negative -CT chest with no acute findings - no further vomiting -immodium for diarrhea Code(s): R11.2 - NAUSEA WITH VOMITING, UNSPECIFIED; R19.7 - DIARRHEA, UNSPECIFIED (6) Dementia Current Visit: No Status: Acute Assessment & Plan: -continue home meds Code(s): F03.90 - UNSP DEMENTIA, UNSP SEVERITY, WITHOUT BEH/PSYCH/MOOD/ANX (7) COPD (chronic obstructive pulmonary disease) Current Visit: Yes Status: Acute Assessment & Plan: -Supplemental oxygen with goal spo2 89-92% - RA currently -RT eval -nebs prn -ct chest with no acute findings - stable (8) Lung mass Current Visit: No Status: Acute Assessment & Plan: -recent lung biopsy 05/29/24 - no pathology back yet - follows with Dr. Grimm (oncology) Code(s): R91.8 - OTHER NONSPECIFIC ABNORMAL FINDING OF LUNG FIELD Code(s): E87.6 - HYPOKALEMIA (2) Acute renal injury Current Visit: Yes Status: Acute Code(s): N17.9 - ACUTE KIDNEY FAILURE, UNSPECIFIED (3) Elevated troponin Current Visit: Yes Status: Acute Code(s): R79.89 - OTHER SPECIFIED ABNORMAL FINDINGS OF BLOOD CHEMISTRY (4) High anion gap metabolic acidosis Current Visit: Yes Status: Acute Code(s): E87.29 - OTHER ACIDOSIS (5) Nausea vomiting and diarrhea Current Visit: Yes Status: Acute Code(s): R11.2 - NAUSEA WITH VOMITING, UNSPECIFIED; R19.7 - DIARRHEA, UNSPECIFIED (6) Dementia Current Visit: No Status: Acute Code(s): F03.90 - UNSP DEMENTIA, UNSP SEVERITY, WITHOUT BEH/PSYCH/MOOD/ANX (7) COPD (chronic obstructive pulmonary disease) Current Visit: Yes Status: Acute (8) Lung mass Current Visit: No Status: Acute Code(s): R91.8 - OTHER NONSPECIFIC ABNORMAL FINDING OF LUNG FIELD
[2024-06-04 05:31] LABS: Absolute Neutrophil Ct (ANC) 4.33 x10^3/uL (1.78-5.38); BASOPHIL % 0.5 % (0.2-1.2); Basophil (Absolute #) 0.03 x10^3/uL (0.01-0.08); Eosinophil % 1.7 % (0.8-7.0); Eosinophil (Absolute #) 0.11 x10^3/uL (0.04-0.54); Hematocrit 29.8 % (40.1-51.0); Hemoglobin 9.7 g/dL (13.7-17.5); IMMATURE GRAN # 0.02 x10^3u/L (0.001-0.031); IMMATURE GRAN % 0.3 % (0.001-0.429); Lymphocyte (Absolute #) 1.36 x10^3/uL (1.32-3.57); Lymphocytes % 21.2 % (21.8-53.1); Mean Corpuscular Hemoglobin 29.9 pg (25.7-32.2); Mean Corpuscular Hgb Concent. 32.6 g/dL (32.3-36.5); Mean Platelet Volume 10.7 fL (9.4-12.4); Monocyte (Absolute #) 0.56 x10^3/uL (0.30-0.82); Monocytes % 8.7 % (5.3-12.2); Neutrophil % 67.6 % (34.0-67.9); Platelet Count 206 x10^3/uL (163-337); Red Blood Count 3.24 x10^6/uL (4.63-6.08); Red Cell Distribution Width 15.2 % (11.6-14.4); White Blood Count 6.4 x10^3/uL (4.23-9.07)
[2024-06-04 05:41] LABS: ALBUMIN 3.3 g/dL (3.5-5.0); ANION GAP 13.2 MEQ/L (5-15); BILIRUBIN,TOTAL 0.4 mg/dL (0.2-1.3); Calcium 9.3 mg/dL (8.4-10.2); Creatinine 1 0.85 mg/dL (0.66-1.25); EST GLOMERULAR FILTRATION RATE 85.2 ML/MIN; Potassium 3.7 mmol/L (3.5-5.1); Total Protein 6.7 g/dL (6.3-8.2)
[2024-06-04 07:19] VITALS: RESP 16
[2024-06-04] MEDS: Zofran 4 MG/2 ML VIAL IV PRN (11:45)
--- NOTE | 2024-06-04 12:02 | PCM.DS ---
Discharge Summary Date of Admission: 06/02/24 16:18 Date of Discharge: 06/04/24 Admitting Physician: HOWARD BUNDY MD Primary Care Provider: [facility] Allergies Allergies aspirin Allergy (Verified 06/02/24 12:37) Hospital Summary - Hospital Course Hospital Course: is a 84 year old male with a pmhx of COPD, dementia, HLD, carotid stenosis, anxiety, stroke, lung mass with lung biopsy performed 05/29/24 presented to ED from [facility] with complaints of diarrhea for the past four days. Patient poor historian, [facility] nursing staff home therapy rn Tracey contacted and reports patient has has five days of diarrhea and today coffee ground emesis. She reports he has been complaining of abdominal pain and cramping x 2 weeks.CDiff and occult stools negative. CT with colonic diarrhea, gallstones, and enlarged prostate. CT chest with no acute changes. Most likely viral gastroenteritis. No cp, fever,cough, sob, cp.Upon arrival to ED vitals stable. Lab findings remarkable for hypokalemia at 2.8, Gap acidosis with CO2 at 15/ anion Gap at 19, MASTER with creat at 1.30 (baseline around 0.78), Troponins elevated but downtrending - no acute findings on EKG, and microcytic anemia with hgb at 11.0. Patient given IVF, potassium, and magnesium in ED. Labs an d vitals now stable. No further incidence of n/v. Diarrhea resolved. Patient was complaining of urinary retention. Bladder scan performed with 745mls retained. Casiano catheter placed. UA negative. Will try to discontinue casiano - trial void, if unable to urinate casiano will be replaced and patient will follow up with urology at nursing facility. Discharge Note New Diagnosis: Hypokalemia/MASTER/viral gastroenteritis New Medications: zofran/immodium Follow Up: pcp/?urology Latest Assessment & Plan (1) Hypokalemia Current Visit: Yes Status: Acute Assessment & Plan: -secondary to GI loss -tele -Received 90meq in ED, will recheck and replenish per protocol 06/03: -improved at 3.1- will replenish -continue to monitor 06/04: -resolved Code(s): E87.6 - HYPOKALEMIA (2) Acute renal injury Current Visit: Yes Status: Acute Assessment & Plan: -Most likely secondary to hypovolemia due to N/V/D -IVF- creat at 1.30 on arrival now wnl at 1.13 -Monitor renal/lytes -avoid nephrotoxic agents 06/03 -resolved Code(s): N17.9 - ACUTE KIDNEY FAILURE, UNSPECIFIED (3) Elevated troponin Current Visit: Yes Status: Acute Assessment & Plan: -EKG with no acute changes -trend -repeat EKG in a.m. 06/03: -EKG unremarkable - no chest pain - trops downtrending Code(s): R79.89 - OTHER SPECIFIED ABNORMAL FINDINGS OF BLOOD CHEMISTRY (4) High anion gap metabolic acidosis Current Visit: Yes Status: Acute Assessment & Plan: -improving now at 21, continue IVF - monitor for fluid overload Code(s): E87.29 - OTHER ACIDOSIS (5) Nausea vomiting and diarrhea Current Visit: Yes Status: Acute Assessment & Plan: -cdiff, stools culture, O&P, and giardia -immodium if cdiff negative -stool for occult blood -consider surgery consult -Hemoglobin at baseline of 11.0 -trend -CT C/A/P -anti-emetics -IVF -protonix 06/03: -CT a/p with colonic diarrhea, gallstones, enlarged prostate and left inguinal hernia -CDiff/occult stool negative -CT chest with no acute findings - no further vomiting -immodium for diarrhea Code(s): R11.2 - NAUSEA WITH VOMITING, UNSPECIFIED; R19.7 - DIARRHEA, UNSPECIFI ED (6) Dementia Current Visit: No Status: Acute Assessment & Plan: -continue home meds Code(s): F03.90 - UNSP DEMENTIA, UNSP SEVERITY, WITHOUT BEH/PSYCH/MOOD/ANX (7) COPD (chronic obstructive pulmonary disease) Current Visit: Yes Status: Acute Assessment & Plan: -Supplemental oxygen with goal spo2 89-92% - RA currently -RT eval -nebs prn -ct chest with no acute findings - stable (8) Lung mass Current Visit: No Status: Acute Assessment & Plan: -recent lung biopsy 05/29/24 - no pathology back yet - follows with Dr. Grimm (oncology) I spent 35 minutes [id number] with the patient on the day of discharge performing discharge exam, discussing hospital stay and discharge instructions with patient and caregivers, preparation of discharge records, prescriptions & referral forms and addressing any questions/concerns the patient had as documented above. - Vitals & Intake/Output Vital Signs: Vital Signs Temperature 97.5 F 06/04/24 07:18 Pulse Rate 69 06/04/24 07:18 Respiratory Rate 16 06/04/24 08:00 Blood Pressure 104/53 06/04/24 07:18 O2 Sat by Pulse Oximetry 94 L 06/04/24 07:18 Intake & Output: Intake & Output 06/01/24 06/02/24 06/03/24 06/04/24 11:59 11:59 11:59 11:59 Intake Total 600 800 Balance 600 800 Weight 78.5 kg 79.2 kg - Lab Result Diagrams: 06/04/24 04:26 06/04/24 04:26 Lab Results-Last 24 Hrs: Lab Results-Last 24 Hours 06/02/24 06/03/24 06/04/24 Range/Units 12:26 14:15 04:26 WBC 6.4 (4.23-9.07) x10^3/uL RBC 3.24 L (4.63-6.08) x10^6/uL Hgb 9.7 L (13.7-17.5) g/dL Hct 29.8 L (40.1-51.0) % MCV 92.0 (79.0-92.2) fL MCH 29.9 (25.7-32.2) pg MCHC 32.6 (32.3-36.5) g/dL RDW 15.2 H (11.6-14.4) % Plt Count 206 (163-337) x10^3/uL MPV 10.7 (9.4-12.4) fL Gran % 67.6 (34.0-67.9) % Immature Gran % (Auto) 0.3 (0.001-0.429) % Nucleat RBC Rel Count 0.0 (0.00-0.2) % Eos # (Auto) 0.11 (0.04-0.54) x10^3/uL Immature Gran # (Auto) 0.02 (0.001-0.031) x10^3u/L Absolute Lymphs (auto) 1.36 (1.32-3.57) x10^3/uL Absolute Monos (auto) 0.56 (0.30-0.82) x10^3/uL Absolute Nucleated RBC 0.00 (0.00-0.012) x10^3u/L Lymphocytes % 21.2 L (21.8-53.1) % Monocytes % 8.7 (5.3-12.2) % Eosinophils % 1.7 (0.8-7.0) % Basophils % 0.5 (0.2-1.2) % Absolute Granulocytes 4.33 (1.78-5.38) x10^3/uL Basophils # 0.03 (0.01-0.08) x10^3/uL Sodium (135-145) mmol/L Potassium 3.5 (3.5-5.1) mmol/L Chloride (98-107) mmol/L Carbon Dioxide (22-30) mmol/L Anion Gap (5-15) MEQ/L BUN (9-20) mg/dL Creatinine (0.66-1.25) mg/dL Estimated GFR ML/MIN Glucose (74-106) mg/dL Calcium (8.4-10.2) mg/dL Magnesium (1.6-2.3) mg/dL Total Bilirubin (0.2-1.3) mg/dL AST (17-59) U/L ALT (0-50) U/L Alkaline Phosphatase (38-126) U/L Serum Total Protein (6.3-8.2) g/dL Albumin (3.5-5.0) g/dL Urine Color Yellow (Yellow) Urine Appearance Clear (Clear) Urine pH 5.5 (4.6-8.0) Ur Specific [place] 1.020 (1.005-1.030) Urine Protein 30 (Negative) Urine Glucose (UA) Negative (Negative) mg/dL Urine Ketones Negative (Negative) Urine Blood Negative (Negative) Urine Nitrite Negative (Negative) Urine Bilirubin Negative (Negative) Urine Urobilinogen 0.2 (0.2) mg/dL Ur Leukocyte Esterase Negative (Negative) U Hyaline Cast (Auto) 3-5 A (0-2) /LPF Urine Microscopic RBC 0-2 (0-5) /HPF Urine Microscopic WBC 3-5 (0-5) /HPF Ur Epithelial Cells Rare (None Seen) /HPF Urine Bacteria None Seen (None Seen) /HPF Urine Culture Reflexed NO (NO) 06/04/24 Range/Units 04:26 WBC (4.23-9.07) x10^3/uL RBC (4.63-6.08) x10^6/uL Hgb (13.7-17.5) g/dL Hct (40.1-51.0) % MCV (79.0-92.2) fL MCH (25.7-32.2) pg MCHC (32.3-36.5) g/dL RDW (11.6-14.4) % Plt Count (163-337) x10^3/uL MPV (9.4-12.4) fL Gran % (34.0-67.9) % Immature Gran % (Auto) (0.001-0.429) % Nucleat RBC Rel Count (0.00-0.2) % Eos # (Auto) (0.04-0.54) x10^3/uL Immature Gran # (Auto) (0.001-0.031) x10^3u/L Absolute Lymphs (auto) (1.32-3.57) x10^3/uL Absolute Monos (auto) (0.30-0.82) x10^3/uL Absolute Nucleated RBC (0.00-0.012) x10^3u/L Lymphocytes % (21.8-53.1) % Monocytes % (5.3-12.2) % Eosinophils % (0.8-7.0) % Basophils % (0.2-1.2) % Absolute Granulocytes (1.78-5.38) x10^3/uL Basophils # (0.01-0.08) x10^3/uL Sodium 142 (135-145) mmol/L Potassium 3.7 (3.5-5.1) mmol/L Chloride 111 H (98-107) mmol/L Carbon Dioxide 21 L (22-30) mmol/L Anion Gap 13.2 (5-15) MEQ/L BUN 14 (9-20) mg/dL Creatinine 0.85 (0.66-1.25) mg/dL Estimated GFR 85.2 ML/MIN Glucose 123 H (74-106) mg/dL Calcium 9.3 (8.4-10.2) mg/dL Magnesium 2.0 (1.6-2.3) mg/dL Total Bilirubin 0.40 (0.2-1.3) mg/dL AST 23 (17-59) U/L ALT 17 (0-50) U/L Alkaline Phosphatase 44 (38-126) U/L Serum Total Protein 6.7 (6.3-8.2) g/dL Albumin 3.3 L (3.5-5.0) g/dL Urine Color (Yellow) Urine Appearance (Clear) Urine pH (4.6-8.0) Ur Specific [place] (1.005-1.030) Urine Protein (Negative) Urine Glucose (UA) (Negative) mg/dL Urine Ketones (Negative) Urine Blood (Negative) Urine Nitrite (Negative) Urine Bilirubin (Negative) Urine Urobilinogen (0.2) mg/dL Ur Leukocyte Esterase (Negative) U Hyaline Cast (Auto) (0-2) /LPF Urine Microscopic RBC (0-5) /HPF Urine Microscopic WBC (0-5) /HPF Ur Epithelial Cells (None Seen) /HPF Urine Bacteria (None Seen) /HPF Urine Culture Reflexed (NO) - Radiology Exams Ordered Rad Exams-Entire Visit: Radiology Procedures Category Date Time Status ABDOMEN AND PELVIS W/0 CONTRAS [CT] Stat Exams 06/02/24 16:57 Completed CHEST WITHOUT CONTRAST [CT] Stat Exams 06/02/24 16:57 Completed - Procedures and Test Procedures and Tests throughout Hospitalization: Therapy Orders & Screens 06/02/24 16:57 EKG REPEAT IN AM Comment: Diagnosis: Diarrhea Respiratory Therapy Consult ONCE Comment: Reason For Exam: Diagnosis: Diarrhea 06/02/24 17:38 ST Screen per Nursing Assess ONCE Comment: Protocol Order Physician Instructions: Greater than [address] Admission Screening Reason For Exam: Triggered on Admission Diagnosis: Diarrhea CVA/Dyshpagia/Aphasia: No Cognitive Deficits: No Dehydration/Nutrition Deficit: No Reflux: No Oral-Motor Difficulties: No Pneumonia: No [facility] Resident: Yes Total Points: 5 06/02/24 20:15 Respiratory Therapy Assessment DAILY Comment: Diagnosis: Diarrhea Discharge Exam General Appearance: no apparent distress Neurologic Exam: alert, 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, cooperative Eye Exam: PERRL Ears, Nose, Throat Exam: normal ENT inspection Neck Exam: normal inspection Respiratory Exam: normal breath sounds, lungs clear Cardiovascular Exam: regular rate/rhythm, normal heart sounds Gastrointestinal/Abdomen Exam: soft, normal bowel sounds Male Genitalia Exam: deferred Rectal Exam: deferred Back Exam: normal inspection Extremity Exam: normal inspection Skin Exam: normal color Wound Assessment: Skin/Wound Assessment Wound/Incision Assessment Start: 06/02/24 17:38 Text: Status: Active Freq: Q6H Protocol: Document 06/04/24 08:00 RB (Rec: 06/04/24 09:49 RB [id number]) Wound/Incision Assessment Right Upper Lateral Thigh Wound Assessment Shift Assessment Wound Type blister Wound Stage Stage II Dressing Status Dry & Intact Primary Dressing mepilex border dressing Comment dressing CDI Wound Photo Photo Taken No Final Diagnosis/Problem List - Final Discharge Diagnosis/Problem (1) Hypokalemia Current Visit: Yes Status: Resolved Code(s): E87.6 - HYPOKALEMIA (2) Acute renal injury Current Visit: Yes Status: Resolved Code(s): N17.9 - ACUTE KIDNEY FAILURE, UNSPECIFIED (3) Elevated troponin Current Visit: Yes Status: Acute Code(s): R79.89 - OTHER SPECIFIED ABNORMAL FINDINGS OF BLOOD CHEMISTRY (4) High anion gap metabolic acidosis Current Visit: Yes Status: Resolved Code(s): E87.29 - OTHER ACIDOSIS (5) Nausea vomiting and diarrhea Current Visit: Yes Status: Resolved Code(s): R11.2 - NAUSEA WITH VOMITING, UNSPECIFIED; R19.7 - DIARRHEA, UNSPECIFIED (6) Dementia Current Visit: No Status: Chronic Code(s): F03.90 - UNSP DEMENTIA, UNSP SEVERITY, WITHOUT BEH/PSYCH/MOOD/ANX (7) COPD (chronic obstructive pulmonary disease) Current Visit: Yes Status: Chronic (8) Lung mass Current Visit: No Status: Chronic Code(s): R91.8 - OTHER NONSPECIFIC ABNORMAL FINDING OF LUNG FIELD - Discharge Discharge Date: 06/04/24 Disposition: DC TO ANY "OTHER" [facility] Condition: Stable Prescriptions: New Loperamide HCl 2 mg [Imodium 2 mg] 2 mg PO PRN PRN cap PRN Reason: Diarrhea Continue Acetaminophen 325 mg [Tylenol 325 mg] 650 mg PO Q4HPRN PRN PRN Reason: Pain Potassium Chloride 20 meq PO TID Butalb/Acetaminophen/Caffeine [Esgic 50-325-40 mg Tablet] 1 tab PO Q8HPRN PRN PRN Reason: Headache Glycerin/Propylene Glycol [Artificial Tears Drops] 2 drops OP QID risperiDONE [Risperdal] 0.5 mg PO DAILY Furosemide 20 mg [Lasix 20 mg] 20 mg PO DAILY Clopidogrel Bisulfate [Clopidogrel] 75 mg PO DAILY Atorvastatin Calcium 40 mg PO EVENING MEAL Ondansetron ODT 4 MG [Zofran Odt 4 mg] 4 mg PO Q6H PRN PRN PRN Reason: Nausea Sertraline HCl 100 mg PO DAILY Acetaminophen 500 mg [Tylenol Extra Strength 500 mg] 500 mg PO TID Discontinued Ibuprofen 200 mg [Motrin 200 mg] 200 mg PO Q6HPRN PRN PRN Reason: Pain Ibuprofen 600 mg PO TID Follow up with: ENVIVE,ENVIVE [Primary Care Provider] -
[2024-06-04 12:52] VITALS: BP 152/67; PULSE 73; TEMP 97.1; O2SAT 93
== END 2024-06-04 14:56 ==
LOC: ED 12:14 → MED SURG 16:18
PROVIDERS: ADMIT Internal Medicine; ATTEND Internal Medicine
DX: E87.6 Hypokalemia (principal); N17.9 Acute kidney failure, unspecified; R79.89 Other specified abnormal findings of blood chemistry; E87.29 Other acidosis; R11.2 Nausea with vomiting, unspecified; F03.90 Unspecified dementia, unspecified severity, without behavioral disturbance, psychotic disturbance, mood disturbance, and anxiety; J44.9 Chronic obstructive pulmonary disease, unspecified; R91.8 Other nonspecific abnormal finding of lung field; Z79.899 Other long term (current) drug therapy; E78.5 Hyperlipidemia, unspecified; R19.7 Diarrhea, unspecified; R33.9 Retention of urine, unspecified; Z86.73 Personal history of transient ischemic attack (TIA), and cerebral infarction without residual deficits; F41.9 Anxiety disorder, unspecified
CPT/HCPCS: 36000; 36415; 71250; 74176; 80053; 81001; 83690; 83735; 84132; 84134; 84484; 85025; 87045; 87046; 87177; 87209; 87328; 87329; 87427; 87493; 93005; 94760; 96360; 96361; 96365; 96366; 96367; 96374; 96375; 99285; G0328; Q3014; 82274; 93268; J1200; J2405; J3475; J3480; A9270-GY; G0378

== ENCOUNTER 2024-06-06 14:50 | Emergency (ER) | payer MEDICARE, OTHER ==
[2024-06-06 15:23] VITALS: TEMP 101.1
[2024-06-06 15:26] LABS: Appearance Turbid (Clear); Bacteria Many /HPF (None Seen); Bilirubin Negative (Negative); Blood Large (Negative); Epithelial Cells Few /HPF (None Seen); Glucose, Urine Negative (Negative); Hyaline Casts >50 /LPF (0-2); Ketones Negative (Negative); Leukocyte Esterase Large (Negative); Nitrite Positive (Negative); Protein,Urine Dip 300 (Negative); RBC 51-100 /HPF (0-5); Specific Gravity 1.015 (1.005-1.030); WBC >100 /HPF (0-5)
[2024-06-06] MEDS ORDERED: Lactated Ringers 1,000 ML IV ONE (15:30)
[2024-06-06] MEDS: Lactated Ringers 500 ML IV ONE (15:31)
[2024-06-06 15:40] LABS: Absolute Neutrophil Ct (ANC) 8.68 x10^3/uL (1.78-5.38); BASOPHIL % 0.1 % (0.2-1.2); Basophil (Absolute #) 0.01 x10^3/uL (0.01-0.08); Eosinophil % 0.1 % (0.8-7.0); Eosinophil (Absolute #) 0.01 x10^3/uL (0.04-0.54); Hematocrit 33.7 % (40.1-51.0); Hemoglobin 10.9 g/dL (13.7-17.5); IMMATURE GRAN # 0.06 x10^3u/L (0.001-0.031); IMMATURE GRAN % 0.6 % (0.001-0.429); Lymphocyte (Absolute #) 0.92 x10^3/uL (1.32-3.57); Lymphocytes % 8.9 % (21.8-53.1); Mean Cell Volume 93.6 fL (79.0-92.2); Mean Corpuscular Hemoglobin 30.3 pg (25.7-32.2); Mean Corpuscular Hgb Concent. 32.3 g/dL (32.3-36.5); Monocyte (Absolute #) 0.62 x10^3/uL (0.30-0.82); Neutrophil % 84.3 % (34.0-67.9); Platelet Count 221 x10^3/uL (163-337); Red Cell Distribution Width 15.3 % (11.6-14.4); White Blood Count 10.3 x10^3/uL (4.23-9.07)
--- NOTE | 2024-06-06 15:45 | ERPHSYRPT ---
- History of Present Illness Time Seen by Provider: 06/06/24 15:41 Source: patient, EMS, longterm records Exam Limitations: no limitations Patient Subjective Stated Complaint: Weakness Triage Nursing Assessment: [id number] Physician History: Patient is 84-year-old male longterm resident started having a weak spell and was getting confused at longterm so patient was transferred to emergency room. Patient was recently admitted at the hospital with urinary tract infection and was just discharged back to longterm 2 days ago. On initial evaluation patient was obtunded but after few minutes he was more alert and was able to answer. Patient has a history of dementia and COPD. Timing/Duration: today Associated Symptoms: weakness Allergies/Adverse Reactions: aspirin Allergy (Verified 06/02/24 12:37) Home Medications: Glycerin/Propylene Glycol [Artificial Tears Drops] 2 drops OP QID 11/10/22 [History] Potassium Chloride 20 meq PO TID 11/10/22 [History] Atorvastatin Calcium 40 mg PO EVENING MEAL 04/18/24 [History] Clopidogrel Bisulfate [Clopidogrel] 75 mg PO DAILY 04/18/24 [History] Furosemide 20 mg [Lasix 20 mg] 20 mg PO DAILY 04/18/24 [History] risperiDONE [Risperdal] 0.5 mg PO DAILY 04/18/24 [History] Acetaminophen 500 mg [Tylenol Extra Strength 500 mg] 500 mg PO TID [History] Ondansetron ODT 4 MG [Zofran Odt 4 mg] 4 mg PO Q6H PRN PRN 06/02/24 [History] Sertraline HCl 100 mg PO DAILY 06/02/24 [History] Butalb/Acetaminophen/Caffeine [Wyzmli-Snhpvbrz-Pyps 50-325-40] 1 cap PO Q8HPRN PRN 06/06/24 [History] Cranberry 1 cap PO DAILY 06/06/24 [History] Loperamide HCl 2 mg [Imodium 2 mg] 2 mg PO Q6HPRN PRN 06/06/24 [History] Hx Tetanus, Diphtheria Vaccination/Date Given: No Hx Influenza Vaccination/Date Given: No Hx Pneumococcal Vaccination/Date Given: No Immunizations Up to Date: Yes Travel Risk - International Travel Have you traveled outside of the country in past 3 weeks: No - Emerging Infectious Disease Are you exhibiting symptoms associated with any current EIDs: No Symptoms: Abdominal Pain, Diarrhea, Vomitting - Review of Systems Constitutional: Weakness, No Fever, No Chills Eyes: No Symptoms Ears, Nose, & Throat: No Symptoms Respiratory: No Cough, No Dyspnea Cardiac: No Chest Pain, No Edema, No Syncope Abdominal/Gastrointestinal: No Abdominal Pain, No Nausea, No Vomiting, No Diarrhea Genitourinary Symptoms: No Dysuria Musculoskeletal: No Back Pain, No Neck Pain Skin: No Rash Neurological: No Dizziness, No Focal Weakness, No Sensory Changes Psychological: No Symptoms Endocrine: No Symptoms Hematologic/Lymphatic: No Symptoms Immunological/Allergic: No Symptoms All Other Systems: Reviewed and Negative - Past Medical History Pertinent Past Medical History: Yes (Questionable histori) Neurological History: Dementia, Stroke ENT History: No Pertinent History Cardiac History: No Pertinent History Respiratory History: COPD Endocrine Medical History: No Pertinent History Musculoskeletal History: No Pertinent History GI Medical History: No Pertinent History History: No Pertinent History Psycho-Social History: No Pertinent History Male Reproductive Disorders: No Pertinent History Other Medical History: blood clots in lungs, pt is poor historian, does not know - Past Surgical History Past Surgical History: No (unknown) Neuro Surgical History: No Pertinent History Cardiac: No Pertinent History Respiratory: No Pertinent History Gastrointestinal: Appendectomy Genitourinary: No Pertinent History Musculoskeletal: No Pertinent History Male Surgical History: No Pertinent History Other Surgical History: lung biopsy Significant Family History: no pertinent family hx - Social History Smoking Status: Former smoker Exposure to second hand smoke: No Drug Use: none Patient Lives Alone: No - Social Determinants of Health Will the patient participate in the screening: Yes Do you worry about a steady place to live?: No Do you have any problems with any of the following?: No known problems In the past 12 months,have you had to go without utilities?: No Transportation Issues: No Has anyone in your support network made you feel unsafe?: No Have you or anyone in your house had to go without enough: No Comment: Lives in ECF - Nursing Vital Signs Nursing Vital Signs: Initial Vital Signs Pulse Rate 76 06/06/24 15:13 Respiratory Rate 26 H 06/06/24 15:13 Blood Pressure 131/72 06/06/24 15:13 O2 Sat by Pulse Oximetry 96 06/06/24 15:13 Pain Scale Pain Intensity 0 - Physical Exam General Appearance: no apparent distress, alert Eye Exam: PERRL/EOMI, eyes nml inspection Ears, Nose, Throat Exam: normal ENT inspection, TMs normal, pharynx normal, moist mucous membranes Neck Exam: normal inspection, non-tender, supple, full range of motion Respiratory Exam: normal breath sounds, lungs clear, No respiratory distress Cardiovascular Exam: regular rate/rhythm, normal heart sounds, normal peripheral pulses Gastrointestinal/Abdomen Exam: soft, normal bowel sounds, No tenderness, No mass Back Exam: normal inspection, normal range of motion, No CVA tenderness, No vertebral tenderness Extremity Exam: normal inspection, normal range of motion, pelvis stable Neurologic Exam: alert, 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, cooperative, normal mood/affect, nml cerebellar function, nml station & gait, sensation nml, No motor deficits Skin Exam: normal color, warm, dry, No rash Lymphatic Exam: No adenopathy SpO2: 88 - Course Nursing assessment & vital signs reviewed: Yes Ordered Tests: Active Orders 24 hr Category Date Time 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 Care 06/06/24 15:08 Active IV Insertion STAT Care 06/06/24 15:08 Active Pulse Oximetry (ED) STAT Care 06/06/24 15:08 Active CHEST 1 VIEW (PORTABLE) Stat Exams 06/06/24 15:08 Ordered BLOOD CULTURE Stat Lab 06/06/24 15:34 Received CBC W DIFF Stat Lab 06/06/24 15:34 Completed CMP Stat Lab 06/06/24 15:34 Completed CULTURE,URINE Stat Lab 06/06/24 15:05 Received UA W/RFX UR CULTURE Stat Lab 06/06/24 15:05 Completed Medication Summary Generic Name Dose Route Start Last Admin Trade Name Freq PRN Reason Stop Dose Admin Ceftriaxone Sodium 1 gm in 100 mls @ 200 mls/hr 06/06/24 15:47 06/06/24 15:52 Rocephin 1 Gm / 100 Ml Nacl IV 06/06/24 16:16 200 mls/hr STAT ONE 200 mls/hr Administration Discontinued Medications Generic Name Dose Route Start Last Admin Trade Name Freq PRN Reason Stop Dose Admin Lactated Ringer's 500 mls @ 500 mls/hr 06/06/24 15:07 06/06/24 15:31 Lactated Ringers IV 06/06/24 16:06 500 mls/hr .Q1H ONE Administration Lactated Ringer's Confirm 06/06/24 15:30 Lactated Ringers Administered 06/06/24 15:31 Dose 1,000 mls @ ud IV .STK-MED ONE Ceftriaxone Sodium Confirm 06/06/24 15:49 Rocephin 1 Gm / 100 Ml Nacl Administered 06/06/24 15:50 Dose 1 gm in 100 mls @ ud IV .STK-MED ONE Lab/Rad Data: Laboratory Result Diagrams 06/06/24 15:34 06/06/24 15:34 Laboratory Results 06/06/24 06/06/24 06/06/24 Range/Units 15:34 15:34 15:05 WBC 10.3 H (4.23-9.07) x10^3/uL RBC 3.60 L (4.63-6.08) x10^6/uL Hgb 10.9 L (13.7-17.5) g/dL Hct 33.7 L (40.1-51.0) % MCV 93.6 H (79.0-92.2) fL MCH 30.3 (25.7-32.2) pg MCHC 32.3 (32.3-36.5) g/dL RDW 15.3 H (11.6-14.4) % Plt Count 221 (163-337) x10^3/uL MPV 10.0 (9.4-12.4) fL Gran % 84.3 H (34.0-67.9) % Immature Gran % (Auto) 0.6 H (0.001-0.429) % Nucleat RBC Rel Count 0.0 (0.00-0.2) % Eos # (Auto) 0.01 L (0.04-0.54) x10^3/uL Immature Gran # (Auto) 0.06 H (0.001-0.031) x10^3u/L Absolute Lymphs (auto) 0.92 L (1.32-3.57) x10^3/uL Absolute Monos (auto) 0.62 (0.30-0.82) x10^3/uL Absolute Nucleated RBC 0.00 (0.00-0.012) x10^3u/L Lymphocytes % 8.9 L (21.8-53.1) % Monocytes % 6.0 (5.3-12.2) % Eosinophils % 0.1 L (0.8-7.0) % Basophils % 0.1 L (0.2-1.2) % Absolute Granulocytes 8.68 H (1.78-5.38) x10^3/uL Basophils # 0.01 (0.01-0.08) x10^3/uL Sodium 145 (135-145) mmol/L Potassium 3.3 L (3.5-5.1) mmol/L Chloride 110 H (98-107) mmol/L Carbon Dioxide 22 (22-30) mmol/L Anion Gap 15.4 H (5-15) MEQ/L BUN 20 (9-20) mg/dL Creatinine 1.07 (0.66-1.25) mg/dL Estimated GFR 68.0 ML/MIN Glucose 164 H (74-106) mg/dL Calcium 9.7 (8.4-10.2) mg/dL Total Bilirubin 0.70 (0.2-1.3) mg/dL AST 31 (17-59) U/L ALT 24 (0-50) U/L Alkaline Phosphatase 53 (38-126) U/L Serum Total Protein 7.8 (6.3-8.2) g/dL Albumin 4.0 (3.5-5.0) g/dL Urine Color Yellow (Yellow) Urine Appearance Turbid A (Clear) Urine pH 8.0 (4.6-8.0) Ur Specific [place] 1.015 (1.005-1.030) Urine Protein 300 A (Negative) Urine Glucose (UA) Negative (Negative) mg/dL Urine Ketones Negative (Negative) Urine Blood Large A (Negative) Urine Nitrite Positive A (Negative) Urine Bilirubin Negative (Negative) Urine Urobilinogen 1.0 A (0.2) mg/dL Ur Leukocyte Esterase Large A (Negative) U Hyaline Cast (Auto) >50 A (0-2) /LPF Urine Microscopic RBC 51-100 A (0-5) /HPF Urine Microscopic WBC >100 A (0-5) /HPF Ur Epithelial Cells Few (None Seen) /HPF Urine Bacteria Many A (None Seen) /HPF Urine Culture Reflexed YES (NO) - Progress Progress: improved Medical Desision Making - Independent Historian Additional History obtained from: Jail nurse - Diagnostic Testing Diagnostic test were ordered, analyzed, and reviewed by me: Yes - Risk of complications Low Risk: Low risk of morbidity from additional dx testing or treatment - Departure Departure Disposition: Extended Care Facility Clinical Impression: Urinary tract infection Qualifiers: Urinary tract infection type: acute pyelonephritis Qualified Code(s): N10 - Acute pyelonephritis Condition: Stable Critical Care Time: No Referrals: RACHAELIVE,STEVE [Primary Care Provider] - Follow up/PCP as directed Instructions: Urinary Tract Infection, Adult ED Additional Instructions: Discharge/Care Plan YOMAIRA THOMAS was seen on 06/06/24 in the Emergency Room. The patient was counseled regarding Diagnosis,Lab results, Imaging studies, need for follow up and when to return to the Emergency Room. Prescriptions given: Discharge Note I have spoken with the patient and/or caregivers. I have explained the patient's condition, diagnosis and treatment plan based on the information available to me at this time. I have answered the patient's and/or caregiver's questions and addressed any concerns. The patient and/or caregivers have as good understanding of the patient's diagnosis, condition and treatment plan as can be expected at this point. The vital signs have been stable. The patient's condition is stable and appropriate for discharge from the emergency department. The patient will pursue further outpatient evaluation with the primary care physician or other designated or consulting physician as outlined in the discharge instructions. The patient and/or caregivers are agreeable to this plan of care and follow-up instructions have been explained in detail. The patient and/or caregivers have received these instruction. The patient/and or caregivers are aware that any significant change in condition or worsening of symptoms should prompt an immediate return to this or the closest emergency department or call 911. YOMAIRA THOMAS was seen on 06/06/24 n the Emergency Room. At that time you were treated for an emergent condition, during your visit Laboratory, Radiology and/or other procedures may have been ordered. It is very important that you follow-up with your Primary Care Physician STEVE within the next 24-48 hours to review your Emergency Room visit and the final results of testing that was ordered. Some test results such as Urine Cultures, Blood Cultures, and other cultures if ordered will not be finalized for 24-48 hours. If you do not have a Primary Care Provider please call the medical records department at [phone] ext [phone] to obtain a copy of your results or you may sign into our patient portal to obtain these results by visiting us @ [email or web address] and completing the following steps: 1. Click on the Patient Portal link 2. Click the Patient Self Enrollment Link to complete the enrollment form and entering your 3. Once the enrollment form is completed you will receive an email with a te BackType ID and password at the email address you provided. 4. Next choose a user name and password. Your user name must be at least 4 characters long and your password must be at least 4 characters long. 5. Choose a security question from the list and provide your answer to the question. If you already have signed into the Health Portal you may access your Health Care Information 11/03 by the following steps: 1. Login to our website @ [email or web address] 2. Enter your original user name and password. FAQS The [facility] Portal is an online tool that contains your Lab Results, Radiology Reports, Visit History, Discharge Instructions and Health Summary Lab and Radiology Results will not be available for 72 hours on the portal. The Portal is a secure site, passwords are encryted and URLs are re-written so they cannot be copied and pasted. You and authorized family members are the only ones who can access your Portal. Also there is a timeout feature that protects your information if you leave the Portal page open. If you have technical difficulty please use the Contact Us link on the page this will allow you to submit any questions you have regarding the Portal or you may contact the Medical Record Department at [phone] ext [phone]. Prescriptions: Ciprofloxacin [Cipro 500 MG] 500 mg PO BIDAC #20 tablet
[2024-06-06] MEDS ORDERED: ROCEPHIN 1 GM / 100 ML NaCl 1 GM/100 ML IVPB IV ONE (15:49)
[2024-06-06] MEDS: ROCEPHIN 1 GM / 100 ML NaCl 1 GM/100 ML IVPB IV ONE (15:52)
[2024-06-06 15:55] LABS: ANION GAP 15.4 MEQ/L (5-15); BILIRUBIN,TOTAL 0.7 mg/dL (0.2-1.3); Calcium 9.7 mg/dL (8.4-10.2); Creatinine 1 1.07 mg/dL (0.66-1.25); Potassium 3.3 mmol/L (3.5-5.1); Total Protein 7.8 g/dL (6.3-8.2)
[2024-06-06 17:09] VITALS: BP 120/56; PULSE 81; RESP 5; O2SAT 96
--- NOTE | 2024-06-06 21:18 | XRAY ---
Indication: Weakness. Comparison: December 29, 2023 Portable chest less inflated crowding lung bases. 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 No focal infiltrate, consolidation, or large effusion. Heart not enlarged. Bony thorax intact with osteopenia and mild degenerative changes. No acute findings.
== END 2024-06-06 20:13 | disposition home or self-care (01) ==
LOC: ED 14:50
DX: N10 Acute pyelonephritis (principal); R41.0 Disorientation, unspecified; Z79.02 Long term (current) use of antithrombotics/antiplatelets; Z79.899 Other long term (current) drug therapy
CPT/HCPCS: 36000; 36415; 71045; 80053; 81001; 85025; 87040; 87077; 87086; 87186; 93041; 94760; 96360; 96365; 99284; J0696